=== PATIENT | male | born 1935 | race Caucasian/White ===

== ENCOUNTER → 2017-09-24 | Outpatient (CLI) | payer MEDICARE ==
--- NOTE | 2017-09-24 14:16 | US ---
EXAMINATION TYPE: US kidneys/renal and bladder DATE OF EXAM: 09/24/2017 COMPARISON: NONE CLINICAL HISTORY: R31.0 Gross Hematuria. Pt states on-off gross hematuria EXAM MEASUREMENTS: Right Kidney: 10.3 x 6.3 x 6.6 cm Left Kidney: 11.8 x 5.6 x 5.9 cm Right Kidney: Appeared wnl Left Kidney: Cortical thinning Bladder: Solid lesion within bladder ml/rt wall with vascularity= 4.0 x 4.1 x 4.2 cm Bilateral Jets seen: Yes There is no evidence for hydronephrosis at this point in time. No nephrolithiasis is seen. No bhargav s are identified. Within bladder there is suspicious 4.2 cm exophytic slightly lobulated vascular hadley id mass right aspect. Bilateral ureteral jets are seen. IMPRESSION: There is 4.2 cm right lateral wall vascular solid mass strongly suspicious for neoplasm, urology refe rral for cystoscopy evaluation is advised.
== END | disposition home or self-care (01) ==
LOC: RADUSWWP 12:53
PROVIDERS: ATTEND Internal Medicine
DX: I99.8 Other disorder of circulatory system (principal); R31.0 Gross hematuria
CPT/HCPCS: 76770

== ENCOUNTER 2017-11-01 10:46 | Emergency (ER) | payer MEDICARE ==
[2017-11-01 11:23] VITALS: RESP 16
--- NOTE | 2017-11-01 12:29 | ED ---
General Adult HPI - General Chief complaint: Extremity Problem,Nontraumatic Stated complaint: POSS BLOODCLOT, POST OP Time Seen by Provider: 11/01/17 11:56 Source: patient, RN notes reviewed, old records reviewed Mode of arrival: wheelchair Limitations: no limitations - History of Present Illness Initial comments: This is an 82-year-old male the ER for evaluation of right lower extremity edema and pain. Patient is a positive recent surgery surgery history. Patient states pain started last night into today. Patient was sent in for evaluation of possible blood clot in right leg, patient denies chest pain or shortness of breath - Related Data Home Medications Medication Instructions Recorded Confirmed Artificial Tears-Hypromellose 1 drops BOTH EYES TID PRN 11/01/17 11/01/17 [Artificial Tear Drops] Budesonide/Formoterol Fumarate 2 puff INHALATION RT-HS 11/01/17 11/01/17 [Symbicort 160-4.5 Mcg Inhaler] Ciprofloxacin HCl [Cipro] 500 mg PO Q12HR 11/01/17 11/01/17 HYDROcodone/APAP 5-325MG [[place] 1 tab PO TID PRN 11/01/17 11/01/17 5-325] Oxybutynin Xl [Ditropan Xl] 5 mg PO DAILY 11/01/17 11/01/17 Previous Rx's Medication Instructions Recorded Apixaban [Eliquis] 5 mg PO BID #60 tab 11/01/17 Apixaban [Eliquis] 10 mg PO BID #28 tablet 11/01/17 Allergies Allergy/AdvReac Type Severity Reaction Status Date / Time No Known Allergies Allergy Verified 11/01/17 12:53 Review of Systems ROS Statement: Those systems with pertinent positive or pertinent negative responses have been documented in the HPI. ROS Other: All systems not noted in ROS Statement are negative. Past Medical History Past Medical History: Cancer, COPD, Hyperlipidemia Additional Past Medical History / Comment(s): bladder History of Any Multi-Drug Resistant Organisms: None Reported Past Surgical History: Bladder Surgery, Tonsillectomy Additional Past Surgical History / Comment(s): bladder tumor resection Past Psychological History: No Psychological Hx Reported Smoking Status: Never smoker Past Alcohol Use History: None Reported Past Drug Use History: None Reported General Exam - General Exam Comments Initial Comments: Right lower extremity edema and tenderness Limitations: no limitations General appearance: alert, in no apparent distress Head exam: Present: atraumatic, normocephalic, normal inspection Eye exam: Present: normal appearance, PERRL, EOMI. Absent: scleral icterus, conjunctival injection, periorbital swelling ENT exam: Present: normal exam, mucous membranes moist Neck exam: Present: normal inspection. Absent: tenderness, meningismus, lymphadenopathy Respiratory exam: Present: normal lung sounds bilaterally. Absent: respiratory distress, wheezes, rales, rhonchi, stridor Cardiovascular Exam: Present: regular rate, normal rhythm, normal heart sounds. Absent: systolic murmur, diastolic murmur, rubs, gallop, clicks GI/Abdominal exam: Present: soft, normal bowel sounds. Absent: distended, tenderness, guarding, rebound, rigid Extremities exam: Present: normal inspection, full ROM, normal capillary refill. Absent: tenderness, pedal edema, joint swelling, calf tenderness Back exam: Present: normal inspection Neurological exam: Present: alert, oriented X3, CN II-XII intact Psychiatric exam: Present: normal affect, normal mood Skin exam: Present: warm, dry, intact, normal color. Absent: rash Course Vital Signs 11/01/17 11/01/17 11/01/17 11:19 14:30 14:34 Temperature 97.2 F L 98 F 98 F Pulse Rate 81 84 Respiratory 16 16 Rate Blood Pressure 126/74 138/66 O2 Sat by Pulse 98 98 Oximetry Medical Decision Making - Medical Decision Making 82 male the ER for evaluation of possible blood. Patient is recently positive surgery. Patient does have blood clot and lower extremity, patient will be placed on anticoagulation discharged home - Radiology Data Radiology results: report reviewed (Ultrasound lower extremity Positive for DVT) , image reviewed Disposition Clinical Impression: Deep vein thrombosis of lower extremity, Right leg DVT Disposition: HOME SELF-CARE Condition: Good Instructions: Deep Venous Thrombosis (ED) Prescriptions: Apixaban [Eliquis] 5 mg PO BID #60 tab Apixaban [Eliquis] 10 mg PO BID #28 tablet Referrals: Emily Dueñas MD [Primary Care Provider] - 1-2 days
--- NOTE | 2017-11-01 13:20 | US ---
EXAMINATION TYPE: US venous doppler duplex LE RT DATE OF EXAM: 11/01/2017 12:50 PM COMPARISON: NONE CLINICAL HISTORY: Pain. Right calf swelling today; is post bladder CA resection 10-24-17. SIDE PERFORMED: Right TECHNIQUE: The lower extremity deep venous system is examined utilizing real time linear array sonog jose f with graded compression, doppler sonography and color-flow sonography. VESSELS IMAGED: Common Femoral Vein Deep Femoral Vein Greater Saphenous Vein * Femoral Vein Popliteal Vein Small Saphenous Vein * Proximal Calf Veins (* superficial vessels) Right Leg: Positive for DVT at right Popliteal Vein, one of two Calf Veins and one of two Gastrocnem ius Veins. Thickened valve cabezas are noted at upper Femoral Vein. Superficial Vein Thrombosis is also noted in Right upper Small Saphenous Vein. IMPRESSION: Deep venous thrombosis is identified in the popliteal vein. Thrombus is also identified i n one of 2 calf veins and one of 2 gastrocnemius veins. Thickened bowel cabezas are noted in the upper femoral vein. There is also thrombus identified in the small saphenous vein.
[2017-11-01] MEDS ORDERED: APIXABAN 5 MG TAB PO STA ×2 (13:50→13:53)
[2017-11-01 14:35] VITALS: TEMP 98
[2017-11-01 14:38] VITALS: BP 138/66; PULSE 84
== END 2017-11-01 14:34 | disposition home or self-care (01) ==
LOC: EC 10:46
DX: I82.401 Acute embolism and thrombosis of unspecified deep veins of right lower extremity (principal); J44.9 Chronic obstructive pulmonary disease, unspecified; Z85.51 Personal history of malignant neoplasm of bladder; Z79.51 Long term (current) use of inhaled steroids; Z79.899 Other long term (current) drug therapy
CPT/HCPCS: 99284

== ENCOUNTER 2017-12-06 09:04 | Emergency (ER) | payer MEDICARE ==
--- NOTE | 2017-12-06 09:49 | ED ---
General Adult HPI - General Chief complaint: Urogenital Stated complaint: Urinary cancer Time Seen by Provider: 12/06/17 09:39 Source: patient, RN notes reviewed Mode of arrival: ambulatory Limitations: no limitations - History of Present Illness Initial comments: Patient's an 82-year-old male with significant past medical history for bladder cancer, status post recent procedure on the bladder on 11/20/2017, presenting today with difficulty urinating. He does admit that since the procedure he had on the he had a catheter placed for 4 days was taken out was doing well. States that over the last few days she's been having steadily decreased stream and total time urinating. He states last time was able to go with last diaper was just a "dribble". Patient states he does feel the need an urge to urinate but is having a very difficult time going. Patient does admit to pressure over the bladder. He denies any other complaints or symptoms. Patient denies any recent fever, chills, shortness of breath, chest pain, back pain, nausea or vomiting, numbness or tingling, constipation or diarrhea, headaches or visual changes, or any other complaints. - Related Data Home Medications Medication Instructions Recorded Confirmed Artificial Tears-Hypromellose 1 drops BOTH EYES TID PRN 11/01/17 11/01/17 [Artificial Tear Drops] Budesonide/Formoterol Fumarate 2 puff INHALATION RT-HS 11/01/17 11/01/17 [Symbicort 160-4.5 Mcg Inhaler] Ciprofloxacin HCl [Cipro] 500 mg PO Q12HR 11/01/17 11/01/17 HYDROcodone/APAP 5-325MG [[place] 1 tab PO TID PRN 11/01/17 11/01/17 5-325] Oxybutynin Xl [Ditropan Xl] 5 mg PO DAILY 11/01/17 11/01/17 Previous Rx's Medication Instructions Recorded Apixaban [Eliquis] 5 mg PO BID #60 tab 11/01/17 Apixaban [Eliquis] 10 mg PO BID #28 tablet 11/01/17 Sulfamethox-Tmp 800-160Mg [Bactrim 1 tab PO Q12HR #14 tab 12/06/17 DS 800-160 mg] Allergies Allergy/AdvReac Type Severity Reaction Status Date / Time No Known Allergies Allergy Verified 12/06/17 09:17 Review of Systems ROS Statement: Those systems with pertinent positive or pertinent negative responses have been documented in the HPI. ROS Other: All systems not noted in ROS Statement are negative. Past Medical History Past Medical History: Cancer, COPD, Hyperlipidemia Additional Past Medical History / Comment(s): bladder History of Any Multi-Drug Resistant Organisms: None Reported Past Surgical History: Bladder Surgery, Tonsillectomy Additional Past Surgical History / Comment(s): bladder tumor resection x2. Past Psychological History: No Psychological Hx Reported Smoking Status: Never smoker Past Alcohol Use History: None Reported Past Drug Use History: None Reported General Exam - General Exam Comments Initial Comments: General: The patient is awake and alert, in no distress, and does not appear acutely ill. Eye: Pupils are equal, round and reactive to light, extra-ocular movements are intact. No nystagmus. There is normal conjunctiva bilaterally. No signs of icterus. Ears, nose, mouth and throat: There are moist mucous membranes and no oral lesions. Neck: The neck is supple, there is no tenderness or JVD. Cardiovascular: There is a regular rate and rhythm. No murmur, rub or gallop is appreciated. Respiratory: Lungs are clear to auscultation, respirations are non-labored, breath sounds are equal. No wheezes, stridor, rales, or rhonchi. Gastrointestinal: Normal appearance. Normal bowel sounds. Soft on palpation. Patient does have mild tenderness suprapubic over the bladder. No rebound, guarding, or CVA tenderness. Musculoskeletal: Normal ROM, no tenderness. Strength 5/5. Sensation intact. Pulses equal bilaterally 2+. Neurological: A&O x 3. CN II-XII intact, There are no obvious motor or sensory deficits. Coordination appears grossly intact. Speech is normal. Skin: Skin is warm and dry and no rashes or lesions are noted. Psychiatric: Cooperative, appropriate mood & affect, normal judgment. Limitations: no limitations Course Vital Signs 12/06/17 09:15 Temperature 97.7 F Pulse Rate 95 Respiratory 16 Rate Blood Pressure 142/75 O2 Sat by Pulse 96 Oximetry Medical Decision Making - Medical Decision Making Patient's bladder scan showed greater than thousand cc. Full catheter was placed by nursing staff. Patient has had relief. No pain at this time. Abdomen soft on palpation. Patient's urinalysis reviewed shows infection. Will be started on antibiotic. Patient's vital stable. No fever. Advised follow-up with his urologist in 2 days. Carter catheter will be left in place until follow-up appointment. Advised return for any fever or increase or worsening symptoms. - Lab Data Lab Results 12/06/17 Range/Units 09:56 Urine Color Yellow Urine Appearance Clear (Clear) Urine pH 6.0 (5.0-8.0) Ur Specific [place] 1.011 (1.001-1.035) Urine Protein Trace H (Negative) Urine Glucose (UA) Negative (Negative) Urine Ketones Negative (Negative) Urine Blood Small H (Negative) Urine Nitrite Negative (Negative) Urine Bilirubin Negative (Negative) Urine Urobilinogen <2.0 (<2.0) mg/dL Ur Leukocyte Esterase Moderate H (Negative) Urine RBC 19 H (0-5) /hpf Urine WBC 51 H (0-5) /hpf Urine Bacteria Rare H (None) /hpf Urine Mucus Occasional H (None) /hpf Disposition Clinical Impression: Urinary retention, UTI (urinary tract infection) Disposition: HOME SELF-CARE Condition: Good Instructions: Urinary Tract Infection in Men (ED) Additional Instructions: Please use medication as prescribed. Please follow-up with urologist Friday as discussed. Please return to emergency room if the symptoms increase or worsen or for any other concerns. Prescriptions: Sulfamethox-Tmp 800-160Mg [Bactrim DS 800-160 mg] 1 tab PO Q12HR #14 tab Referrals: Emily Dueñas MD [Primary Care Provider] - 1-2 days Time of Disposition: 10:32
[2017-12-06 10:15] LABS: Appearance,Urine Clear (Clear); Bacteria,Urine Rare /hpf; Bilirubin,Urine Negative (Negative); Blood,Urine Small (Negative); Color,Urine Yellow; Glucose,Urine (UA) Negative (Negative); Ketones,Urine Negative (Negative); Leukocyte Esterase,Urine Moderate (Negative); Mucus,Urine Occasional /hpf; Nitrite,Urine Negative (Negative); Protein,Urine Trace (Negative); RBC,Urine 19 /hpf (0-5); Specific Gravity,Urine 1.011 (1.001-1.035); Urobilinogen,Urine <2.0 mg/dL (<2.0); WBC,Urine 51 /hpf (0-5)
[2017-12-06 10:56] VITALS: BP 118/62; PULSE 75; RESP 18; TEMP 97.1
== END 2017-12-06 10:54 | disposition home or self-care (01) ==
LOC: EC 09:04
DX: N39.0 Urinary tract infection, site not specified (principal); R33.9 Retention of urine, unspecified; J44.9 Chronic obstructive pulmonary disease, unspecified; Z85.51 Personal history of malignant neoplasm of bladder; Z98.890 Other specified postprocedural states; Z79.51 Long term (current) use of inhaled steroids; Z79.899 Other long term (current) drug therapy
CPT/HCPCS: 51702; 51798; 81001; 87086; 99283

== ENCOUNTER 2018-02-24 06:01 | Emergency (ER) | payer MEDICARE ==
--- NOTE | 2018-02-24 06:16 | ED ---
General Adult HPI - General Chief complaint: Urogenital Stated complaint: trouble urinating Time Seen by Provider: 02/24/18 06:05 Source: patient, family, RN notes reviewed Mode of arrival: ambulatory Limitations: no limitations - History of Present Illness Initial comments: This is an 83-year-old male who has a history of prostate cancer. Patient comes in today because over the last few weeks he is having increased urinary frequency. Patient states tonight he can't even lay down for a couple minutes before he has to get back up and go again. Patient states he goes very little and now is getting some suprapubic fullness. Patient denies any nausea vomiting diarrhea. Patient denies any blood in the urine. Patient denies any dysuria. His any back pain. - Related Data Home Medications Medication Instructions Recorded Confirmed Artificial Tears-Hypromellose 1 drops BOTH EYES TID PRN 11/01/17 02/24/18 [Artificial Tear Drops] Budesonide/Formoterol Fumarate 2 puff INHALATION RT-HS 11/01/17 02/24/18 [Symbicort 160-4.5 Mcg Inhaler] Ciprofloxacin HCl [Cipro] 500 mg PO Q12HR 11/01/17 02/24/18 HYDROcodone/APAP 5-325MG [[place] 1 tab PO TID PRN 11/01/17 02/24/18 5-325] Oxybutynin Xl [Ditropan Xl] 5 mg PO DAILY 11/01/17 02/24/18 Tamsulosin [Flomax] 0.4 mg PO DAILY 02/24/18 02/24/18 Previous Rx's Medication Instructions Recorded Apixaban [Eliquis] 5 mg PO BID #60 tab 11/01/17 Sulfamethox-Tmp 800-160Mg [Bactrim 1 each PO Q12HR #20 tab 02/24/18 DS 800-160 mg] Allergies Allergy/AdvReac Type Severity Reaction Status Date / Time No Known Allergies Allergy Verified 02/24/18 06:08 Review of Systems ROS Statement: Those systems with pertinent positive or pertinent negative responses have been documented in the HPI. ROS Other: All systems not noted in ROS Statement are negative. Past Medical History Past Medical History: Cancer, COPD, Hyperlipidemia Additional Past Medical History / Comment(s): bladder History of Any Multi-Drug Resistant Organisms: None Reported Past Surgical History: Bladder Surgery, Tonsillectomy Additional Past Surgical History / Comment(s): bladder tumor resection x2. Past Psychological History: No Psychological Hx Reported Smoking Status: Never smoker Past Alcohol Use History: None Reported Past Drug Use History: None Reported General Exam - General Exam Comments Initial Comments: GENERAL Patient is well-developed and well-nourished. Patient is in mild distress. EYES Patient's pupils are equal and round. Extraocular motion is intact SKIN Unremarkable ABDOMINAL pain Patient's abdomen has some distention and mild tenderness in the suprapubic region NEURO The patient is alert and oriented 3 PYSCH Patient has normal interpersonal interactions. MUSCULOSKELETAL All 4 times and full range of motion Limitations: no limitations Course Vital Signs 02/24/18 06:02 Temperature 98.7 F Pulse Rate 105 H Respiratory 20 Rate Blood Pressure 136/76 O2 Sat by Pulse 95 Oximetry Medical Decision Making - Lab Data Lab Results 02/24/18 Range/Units 06:25 Urine Color Yellow Urine Appearance Turbid (Clear) Urine pH 6.5 (5.0-8.0) Ur Specific [place] 1.014 (1.001-1.035) Urine Protein 2+ H (Negative) Urine Glucose (UA) Negative (Negative) Urine Ketones Negative (Negative) Urine Blood Moderate H (Negative) Urine Nitrite Negative (Negative) Urine Bilirubin Negative (Negative) Urine Urobilinogen <2.0 (<2.0) mg/dL Ur Leukocyte Esterase Large H (Negative) Urine RBC 21 H (0-5) /hpf Urine WBC >182 H (0-5) /hpf Urine WBC Clumps Many H (None) /hpf Disposition Clinical Impression: Urinary tract infection Disposition: HOME SELF-CARE Condition: Good Instructions: Urinary Tract Infection in Men (ED) Prescriptions: Sulfamethox-Tmp 800-160Mg [Bactrim DS 800-160 mg] 1 each PO Q12HR #20 tab Is patient prescribed a controlled substance at discharge?: No Referrals: Emily Dueñas MD [Primary Care Provider] - 1-2 days Time of Disposition: 06:46
[2018-02-24 06:42] LABS: Appearance,Urine Turbid (Clear); Bilirubin,Urine Negative (Negative); Blood,Urine Moderate (Negative); Color,Urine Yellow; Glucose,Urine (UA) Negative (Negative); Ketones,Urine Negative (Negative); Leukocyte Esterase,Urine Large (Negative); Nitrite,Urine Negative (Negative); PH, Urine 6.5 (5.0-8.0); Protein,Urine 2+ (Negative); RBC,Urine 21 /hpf (0-5); Specific Gravity,Urine 1.014 (1.001-1.035); Urobilinogen,Urine <2.0 mg/dL (<2.0); WBC,Urine >182 /hpf (0-5)
[2018-02-24] MEDS ORDERED: cefTRIAXone 250 MG VIAL IM STA (06:44)
[2018-02-24 07:07] VITALS: BP 133/64; PULSE 85; RESP 19; TEMP 97.3
[2018-02-24] MEDS ORDERED: cefTRIAXone 1,000 MG VIAL (IM USE) IM STA (07:15)
== END 2018-02-24 07:37 | disposition home or self-care (01) ==
LOC: EC 06:01
DX: N39.0 Urinary tract infection, site not specified (principal); J44.9 Chronic obstructive pulmonary disease, unspecified; Z85.46 Personal history of malignant neoplasm of prostate; Z79.51 Long term (current) use of inhaled steroids; Z79.899 Other long term (current) drug therapy
CPT/HCPCS: 81001; 99283; 96372; J0696

== ENCOUNTER → 2018-06-02 | Outpatient (CLI) | payer MEDICARE ==
--- NOTE | 2018-06-02 14:42 | US ---
EXAMINATION TYPE: US venous doppler duplex LE DATE OF EXAM: 06/02/2018 1:46 PM COMPARISON: 11/01/2017 CLINICAL HISTORY: I82.411 Acute deep vein thrrombosis femoral vein. Follow up to previous. SIDE PERFORMED: Bilateral TECHNIQUE: The lower extremity deep venous system is examined utilizing real time linear array sonog jose f with graded compression, doppler sonography and color-flow sonography. VESSELS IMAGED: External Iliac Vein (EIV) Common Femoral Vein Deep Femoral Vein Greater Saphenous Vein * Femoral Vein Popliteal Vein Small Saphenous Vein * Proximal Calf Veins (* superficial vessels) Grayscale, color doppler, spectral doppler imaging performed of the deep veins of the lower extremiti es. There is normal flow, compressibility, vascular waveforms. Right Leg: Negative for DVT Left Leg: Negative for DVT Clot and thickened valves not seen this time. IMPRESSION: Residual thrombus is not identified within the right popliteal vein. No sonographic evid ence of deep venous thrombosis within either lower extremity.
== END | disposition home or self-care (01) ==
LOC: RADUSWWP 12:02
PROVIDERS: ATTEND Internal Medicine
DX: I82.411 Acute embolism and thrombosis of right femoral vein (principal)
CPT/HCPCS: 93970

== ENCOUNTER 2019-01-11 19:16 | Inpatient (IN) | payer MEDICARE ==
[2019-01-11] MEDS ORDERED: IPRATROPIUM-ALBUTEROL 3 ML NEB INHALATION STA (20:00)
--- NOTE | 2019-01-11 20:01 | ED ---
SOB HPI - General Chief Complaint: Shortness of Breath Stated Complaint: SOB, Weakness, has a heart cath 02/08 Time Seen by Provider: 01/11/19 19:45 Source: patient, family, RN notes reviewed Mode of arrival: ambulatory Limitations: no limitations - History of Present Illness Initial Comments: This 83-year-old male who presents with complaints of exertional dyspnea whenever about 1-2 weeks he progressively worse he was doing stairs today and was very exhausted. He also has some chest tightness without he denies any fevers chills nausea vomiting or sweats however. He does have a history of asthma. Currently at rest he feels within normal limits but with a type of exertion he has shortness of breath. Per the patient family patient reportedly had an OH about 8 weeks ago and is had a cardiac cath scheduled for February [address] Griffin. Complaint: shortness of breath - Related Data Home Medications Medication Instructions Recorded Confirmed Artificial Tears-Hypromellose 1 drops BOTH EYES TID PRN 11/01/17 01/11/19 [Artificial Tear Drops] Budesonide/Formoterol Fumarate 2 puff INHALATION RT-HS 11/01/17 01/11/19 [Symbicort 160-4.5 Mcg Inhaler] Tamsulosin [Flomax] 0.4 mg PO DAILY 02/24/18 01/11/19 Anti-Oxidant 1 tab PO DAILY 01/11/19 01/11/19 Aspirin [[place] Aspirin EC] 81 mg PO DAILY 01/11/19 01/11/19 Melatonin 5 mg PO HS 01/11/19 01/11/19 Metoprolol Tartrate 12.5 mg PO BID 01/11/19 01/11/19 Allergies Allergy/AdvReac Type Severity Reaction Status Date / Time No Known Allergies Allergy Verified 01/11/19 20:47 Review of Systems ROS Statement: Those systems with pertinent positive or pertinent negative responses have been documented in the HPI. ROS Other: All systems not noted in ROS Statement are negative. Past Medical History Past Medical History: Cancer, COPD, Hyperlipidemia, Myocardial Infarction ([place]) Additional Past Medical History / Comment(s): bladder History of Any Multi-Drug Resistant Organisms: None Reported Past Surgical History: Bladder Surgery, Tonsillectomy Additional Past Surgical History / Comment(s): bladder tumor resection x2. Past Psychological History: No Psychological Hx Reported Smoking Status: Never smoker Past Alcohol Use History: None Reported Past Drug Use History: None Reported General Exam - General Exam Comments Initial Comments: Is a well-developed well-nourished awake alert oriented 3 male Limitations: no limitations General appearance: alert, anxious Head exam: Present: atraumatic, normocephalic, normal inspection Eye exam: Present: normal appearance, PERRL, EOMI. Absent: scleral icterus, conjunctival injection, periorbital swelling ENT exam: Present: normal exam, mucous membranes moist Neck exam: Present: normal inspection, full ROM, other (No stridor JVD or bruits ). Absent: tenderness, meningismus, lymphadenopathy Respiratory exam: Present: decreased breath sounds. Absent: respiratory distress, wheezes, rales, rhonchi, stridor Cardiovascular Exam: Present: normal rhythm, tachycardia, normal heart sounds. Absent: systolic murmur, diastolic murmur, rubs, gallop, clicks GI/Abdominal exam: Present: soft, normal bowel sounds. Absent: distended, tenderness, guarding, rebound, rigid Extremities exam: Present: normal inspection, full ROM, normal capillary refill. Absent: tenderness, pedal edema, joint swelling, calf tenderness Back exam: Present: normal inspection Neurological exam: Present: alert, oriented X3, CN II-XII intact Psychiatric exam: Present: normal affect, normal mood Skin exam: Present: warm, dry, intact, normal color. Absent: rash Course Vital Signs 01/11/19 01/11/19 01/11/19 19:24 20:00 20:07 Temperature 97.7 F Pulse Rate 103 H 100 100 Respiratory 24 Rate Blood Pressure 113/70 130/86 O2 Sat by Pulse 96 97 Oximetry 01/11/19 01/11/19 01/11/19 20:14 21:00 22:00 Temperature Pulse Rate 99 96 105 H Respiratory Rate Blood Pressure 111/89 127/95 O2 Sat by Pulse 96 97 Oximetry - Reevaluation(s) Reevaluation #1: 01/11/19 22:28 Patient did have some improvement with breathing labs did show evidence of CHF with elevated troponin. Reevaluation #2: 01/11/19 22:29 groundwater monitoring technician: This was indicated for rule out dysrhythmias the patient was complaining of shortness of breath and exertional dyspnea. Patient did have a heart rate of approximately 105 with no evidence of acute ST-T wave changes on my exam. Medical Decision Making - Medical Decision Making I did reevaluate patient several occasions did discuss findings the patient family members were present. Patient does present with him complaints of dyspnea which is consistent with congestive heart failure. The patient does have elevated troponin also. He had chest tightness but no overt pain he states he is currently asymptomatic free with respect to breathing at rest and no chest discomfort. I did discuss the case with Dr. Lopez's service patient will be admitted - Lab Data Result diagrams: 01/11/19 19:45 01/11/19 19:45 Lab Results 01/11/19 01/11/19 01/11/19 Range/Units 19:45 19:45 19:45 WBC 6.6 (3.8-10.6) k/uL RBC 4.58 (4.30-5.90) m/uL Hgb 12.6 L (13.0-17.5) gm/dL Hct 40.8 (39.0-53.0) % MCV 89.0 (80.0-100.0) fL MCH 27.5 (25.0-35.0) pg MCHC 30.9 L (31.0-37.0) g/dL RDW 15.2 (11.5-15.5) % Plt Count 228 (150-450) k/uL Neutrophils % 81 % Lymphocytes % 13 % Monocytes % 4 % Eosinophils % 1 % Basophils % 0 % Neutrophils # 5.3 (1.3-7.7) k/uL Lymphocytes # 0.9 L (1.0-4.8) k/uL Monocytes # 0.3 (0-1.0) k/uL Eosinophils # 0.1 (0-0.7) k/uL Basophils # 0.0 (0-0.2) k/uL Hypochromasia Slight PT (9.0-12.0) sec INR (<1.2) APTT (22.0-30.0) sec Sodium 140 (137-145) mmol/L Potassium 4.4 (3.5-5.1) mmol/L Chloride 107 (98-107) mmol/L Carbon Dioxide 22 (22-30) mmol/L Anion Gap 11 mmol/L BUN 19 (9-20) mg/dL Creatinine 1.21 (0.66-1.25) mg/dL Est GFR (CKD-EPI)AfAm 64 (>60 ml/min/1.73 sqM) Est GFR (CKD-EPI)NonAf 56 (>60 ml/min/1.73 sqM) Glucose 182 H (74-99) mg/dL Calcium 8.9 (8.4-10.2) mg/dL Magnesium 2.2 (1.6-2.3) mg/dL Total Bilirubin 0.5 (0.2-1.3) mg/dL AST 47 (17-59) U/L ALT 80 H (21-72) U/L Alkaline Phosphatase 58 (38-126) U/L Troponin I (0.000-0.034) ng/mL NT-Pro-B Natriuret Pep 97314 pg/mL Total Protein 6.3 (6.3-8.2) g/dL Albumin 3.9 (3.5-5.0) g/dL 01/11/19 01/11/19 Range/Units 19:45 19:45 WBC (3.8-10.6) k/uL RBC (4.30-5.90) m/uL Hgb (13.0-17.5) gm/dL Hct (39.0-53.0) % MCV (80.0-100.0) fL MCH (25.0-35.0) pg MCHC (31.0-37.0) g/dL RDW (11.5-15.5) % Plt Count (150-450) k/uL Neutrophils % % Lymphocytes % % Monocytes % % Eosinophils % % Basophils % % Neutrophils # (1.3-7.7) k/uL Lymphocytes # (1.0-4.8) k/uL Monocytes # (0-1.0) k/uL Eosinophils # (0-0.7) k/uL Basophils # (0-0.2) k/uL Hypochromasia PT 10.4 (9.0-12.0) sec INR 1.0 (<1.2) APTT 21.2 L (22.0-30.0) sec Sodium (137-145) mmol/L Potassium (3.5-5.1) mmol/L Chloride (98-107) mmol/L Carbon Dioxide (22-30) mmol/L Anion Gap mmol/L BUN (9-20) mg/dL Creatinine (0.66-1.25) mg/dL Est GFR (CKD-EPI)AfAm (>60 ml/min/1.73 sqM) Est GFR (CKD-EPI)NonAf (>60 ml/min/1.73 sqM) Glucose (74-99) mg/dL Calcium (8.4-10.2) mg/dL Magnesium (1.6-2.3) mg/dL Total Bilirubin (0.2-1.3) mg/dL AST (17-59) U/L ALT (21-72) U/L Alkaline Phosphatase (38-126) U/L Troponin I 0.047 H* (0.000-0.034) ng/mL NT-Pro-B Natriuret Pep pg/mL Total Protein (6.3-8.2) g/dL Albumin (3.5-5.0) g/dL - EKG Data -: EKG Interpreted by Me EKG shows normal: sinus rhythm (Sinus rhythm with marked sinus arrhythmia the rate was 99. We'll 180 QRS duration 94 QT/QTC 366/469 evidence of old inferior changes nonspecific anterior configuration PVC noted) - Radiology Data Radiology results: report reviewed (I did review the imaging and report evidence of increased pulmonary vascular congestion consistent with congestive heart failure.), image reviewed Critical Care Time Critical Care Time: Yes Critical Care Time: 37 minutes of critical care time which includes initial presentation with history physical labs x-rays several reevaluation patient responsive therapy review of imaging. Patient did receive IV for some minor as well as nitro paste. He did receive a DuoNeb treatment. Disposition Clinical Impression: Congestive heart failure, Acute exacerbation of chronic obstructive airways disease, Adult respiratory distress syndrome, Elevated troponin Disposition: ADMITTED IP TO THIS HOSP Condition: Serious Referrals: Emily Dueñas MD [Primary Care Provider] - 1-2 days
[2019-01-11 20:21] LABS: Basophils % (A) 0 %; Eosinophils # (A) 0.1 k/uL (0-0.7); Eosinophils % (A) 1 %; HCT 40.8 % (39.0-53.0); HGB 12.6 gm/dL (13.0-17.5); Hypochromasia Slight; Lymphocytes # (A) 0.9 k/uL (1.0-4.8); Lymphocytes % (A) 13 %; MCH 27.5 pg (25.0-35.0); MCHC 30.9 g/dL (31.0-37.0); Mean Platelet Volume 7.1; Monocytes # (A) 0.3 k/uL (0-1.0); Monocytes % (A) 4 %; Neutrophils # (A) 5.3 k/uL (1.3-7.7); Neutrophils % (A) 81 %; Platelet Count 228 k/uL (150-450); RBC 4.58 m/uL (4.30-5.90); RDW 15.2 % (11.5-15.5); WBC 6.6 k/uL (3.8-10.6)
[2019-01-11 20:26] LABS: Albumin 3.9 g/dL (3.5-5.0); Calcium 8.9 mg/dL (8.4-10.2); Magnesium 2.2 mg/dL (1.6-2.3); Potassium 4.4 mmol/L (3.5-5.1); Total Bilirubin 0.5 mg/dL (0.2-1.3); Total Protein 6.3 g/dL (6.3-8.2)
[2019-01-11 20:41] LABS: Prothrombin Time 10.4 sec (9.0-12.0)
[2019-01-11 20:50] LABS: Partial Thromboplastin Time 21.2 sec (22.0-30.0)
--- NOTE | 2019-01-11 20:57 | XR ---
EXAMINATION TYPE: XR chest 2V DATE OF EXAM: 01/11/2019 COMPARISON: NONE HISTORY: Weakness and shortness of breath. TECHNIQUE: Frontal and lateral views of the chest are obtained. FINDINGS: The cardiac silhouette size is enlarged. There is suspected mild central vascular congesti on. There are bibasilar opacities consistent with small bilateral pleural effusions and associated bi basilar atelectasis and/or infiltrate. Upper lungs are clear without pneumothorax. Underlying scolios is is present. IMPRESSION: Findings consistent with CHF exacerbation as there is cardiomegaly with central vascular congestion and small bilateral pleural effusions identified.
[2019-01-11] MEDS ORDERED: FUROSEMIDE 10 MG/ML 4 ML VIAL IV STA (22:27)
[2019-01-11] MEDS ORDERED: NITROGLYCERIN OINT 1 INCH/GM PACKET TOPICAL STA (22:28)
[2019-01-11] MEDS ORDERED: HEPARIN SODIUM,PORCINE 5,000 UNIT/ML 1 ML VIAL IV ONE (22:31)
[2019-01-11] MEDS ORDERED: ARTIFICIAL TEARS-HYPROMELLOSE DROPS 15 ML BTL BOTH EYES PRN (22:32)
[2019-01-11] MEDS: FUROSEMIDE 10 MG/ML 4 ML VIAL IV SCH (23:02)
[2019-01-11] MEDS: HEPARIN SOD,PORK IN 0.45% NACL 25,000 UNIT in 0.45% NACL 1 250ML.BAG IV SCH (23:15)
[2019-01-12] MEDS: MELATONIN 5 MG TABLET PO SCH ×2 (00:05→21:04)
[2019-01-12] MEDS: SYMBICORT 160-4.5 MCG INHALER INHALATION SCH ×2 (00:42→21:03)
[2019-01-12 06:04] LABS: Basophils % (A) 0 %; Eosinophils # (A) 0.2 k/uL (0-0.7); Eosinophils % (A) 2 %; HCT 39.8 % (39.0-53.0); HGB 12.5 gm/dL (13.0-17.5); Hypochromasia Slight; Lymphocytes # (A) 1.8 k/uL (1.0-4.8); Lymphocytes % (A) 21 %; MCH 27.9 pg (25.0-35.0); MCHC 31.4 g/dL (31.0-37.0); MCV 88.8 fL (80.0-100.0); Mean Platelet Volume 6.7; Monocytes # (A) 0.5 k/uL (0-1.0); Monocytes % (A) 6 %; Neutrophils % (A) 69 %; Platelet Count 225 k/uL (150-450); RBC 4.48 m/uL (4.30-5.90); RDW 15.3 % (11.5-15.5); WBC 8.7 k/uL (3.8-10.6)
[2019-01-12 06:19] LABS: Potassium 4.6 mmol/L (3.5-5.1)
[2019-01-12] MEDS: HEPARIN SODIUM,PORCINE 5,000 UNIT/ML 1 ML VIAL IV PRN ×2 (06:37→14:37)
[2019-01-12] MEDS: METOPROLOL TARTRATE 25 MG TAB PO SCH ×2 (08:06→21:04)
[2019-01-12] MEDS: TAMSULOSIN 0.4 MG CAP.ER.24H PO SCH (08:06)
[2019-01-12] MEDS: NITROGLYCERIN OINT 1 INCH/GM PACKET TOPICAL SCH ×4 (08:06→21:05)
[2019-01-12] MEDS: FUROSEMIDE 10 MG/ML 4 ML VIAL IV SCH ×2 (08:07→21:22)
[2019-01-12 11:16] VITALS: BMI 30.6
--- NOTE | 2019-01-12 11:55 | P.CRDCN ---
History of Present Illness Consult date: 01/12/19 Requesting physician: Barbra Lopez Consult reason: congestive heart failure Chief complaint: Exertional shortness of breath History of present illness: This is a pleasant 83-year-old gentleman who has a known history of hyperlipidemia, history of bladder cancer, asthma, prior DVT, approximately 8 weeks ago, the patient was out shopping somewhat, he states that he became extremely tired, was short of breath and diaphoretic, went into the house and had a brief syncopal episode. He did not seek medical attention at that time, but since that time the patient has been experiencing exertional shortness of breath and is noticed some peripheral edema. 6 weeks ago the patient went to [facility] [place] who referred him to cardiology, the patient was seen by Dr. Marie, underwent a stress test which revealed a large inferior scar, he had an echo performed at that visit which also showed a normal ejection fraction with moderate mitral regurgitation. Dr. Marie did have a discussion with the patient and the family regarding proceeding with medical therapy or performing a cardiac cath. The patient opted medical therapy. This past Friday he was again seen in the office, continues to have significant exertional shortness of breath, and for this reason had opted to proceed with cardiac catheterization. Cardiac catheterization was scheduled for February 08. He presents to the hospital on this admission with symptoms again of moderate to severe exertional shortness of breath. According to the patient he was walking up the stairs with the laundry and felt that so he could hardly make it because he became extremely tired and weak and was short of breath. He ultimately came to the emergency room on this occasion for further evaluation and treatment. His chest x-ray on admission here showed just of heart failure exacerbation. Small bilateral pleural effusions. EKG on presentation here shows a normal sinus rhythm with inferior lateral ST-T wave changes noted. Blood pressure on arrival 113/70 with a heart rate in the low 100s, 96% on room air. Blood pressure this morning 120/70 with a heart rate in the 80s, 97% on 2 L of oxygen. White blood cell count 8.7, hemoglobin 12.5, platelet count 225. Sodium 142, potassium 4.6, BUN 19 and creatinine 1.1. BNP level 12,400. Troponin's 0.047, .062, 0.060. Patient was initiated on IV Lasix in the emergency room, he has been diuresing well since then. We will continue IV diuretics, continue to monitor intake and output along with daily weights and daily lytes BUN and creatinine. Decrease aspirin 81 mg daily and start the patient on a statin. Past Medical History Past Medical History: Asthma, Cancer, COPD, Deep Vein Thrombosis (DVT), Hyperlipidemia, Myocardial Infarction ([place]) Additional Past Medical History / Comment(s): Ca of bladder, CHF (new dx as of 01/11/2019). DVT (not on anticoags-cleared by the doctor) Last Myocardial Infarction Date:: 11/2018 History of Any Multi-Drug Resistant Organisms: None Reported Past Surgical History: Bladder Surgery, Tonsillectomy Additional Past Surgical History / Comment(s): bladder tumor resection x2. Past Anesthesia/Blood Transfusion Reactions: No Reported Reaction Smoking Status: Never smoker - Past Family History Father Family Medical History: Asthma Additional Family Medical History / Comment(s): parkinsons Mother Additional Family Medical History / Comment(s): of old age Brother(s) Additional Family Medical History / Comment(s): heart valve replacement Medications and Allergies Home Medications Medication Instructions Recorded Confirmed Type Artificial Tears-Hypromellose 1 drops BOTH EYES TID PRN 11/01/17 01/11/19 History [Artificial Tear Drops] Budesonide/Formoterol Fumarate 2 puff INHALATION RT-HS 11/01/17 01/11/19 History [Symbicort 160-4.5 Mcg Inhaler] Tamsulosin [Flomax] 0.4 mg PO DAILY 02/24/18 01/11/19 History Anti-Oxidant 1 tab PO DAILY 01/11/19 01/11/19 History Aspirin [[place] Aspirin EC] 81 mg PO DAILY 01/11/19 01/11/19 History Melatonin 5 mg PO HS 01/11/19 01/11/19 History Metoprolol Tartrate 12.5 mg PO BID 01/11/19 01/11/19 History Allergies Allergy/AdvReac Type Severity Reaction Status Date / Time No Known Allergies Allergy Verified 01/11/19 20:47 Physical Exam Vitals: Vital Signs Temp Pulse Pulse Resp BP BP Pulse Ox 01/12/19 08:00 96.8 F L 89 18 121/75 97 01/12/19 04:00 99 17 01/12/19 03:43 98 F 99 17 150/85 97 01/12/19 00:43 97 01/12/19 00:00 114 H 17 01/11/19 23:41 97.9 F 114 H 17 144/94 97 01/11/19 23:00 99 18 119/76 96 01/11/19 22:00 105 H 127/95 97 01/11/19 21:00 96 111/89 96 01/11/19 20:14 99 01/11/19 20:07 100 01/11/19 20:00 100 130/86 97 01/11/19 19:24 97.7 F 103 H 24 113/70 96 Intake and Output 01/11/19 01/12/19 01/12/19 22:59 06:59 14:59 Intake Total 466.362 0 Output Total 600 Balance 466.362 -600 Intake: Intake, IV Titration 66.362 Amount Heparin Sod,Pork in 0.45% 66.362 NaCl 25,000 unit In 0.45 % NaCl 1 250ml.bag @ 10 mls/hr IV .Q24H [facility] Rx#: [id number] Oral 400 0 Output: Urine 600 Other: Voiding Method Toilet Toilet # Voids 700 Weight 90.718 kg 91.4 kg 91.4 kg PHYSICAL EXAMINATION: GENERAL: 83-year-old gentleman in no acute distress at the time of my examination HEENT: Head is atraumatic, normocephalic. Pupils equal, round. Sclera anicteric. Conjunctiva are clear. Mucous membranes of the mouth are moist. Neck is supple. There is elevated jugular venous pressure. No carotid bruit is heard. HEART EXAMINATION: Heart S1, S2 normal. No murmur or gallop heard. CHEST EXAMINATION: Lungs reveal diminished air entry to bilateral bases. ABDOMEN: Soft, nontender. Bowel sounds are heard. No organomegaly noted. EXTREMITIES: 2+ peripheral pulses with trace to 1+ evidence of peripheral edema and no calf tenderness noted. NEUROLOGIC patient is awake, alert and oriented 3 . . Results 01/12/19 05:43 01/12/19 05:43 Cardiac Enzymes 01/11/19 01/11/19 01/12/19 Range/Units 19:45 19:45 03:24 AST 47 (17-59) U/L Troponin I 0.047 H* 0.062 H* (0.000-0.034) ng/mL 01/12/19 Range/Units 08:58 AST (17-59) U/L Troponin I 0.060 H* (0.000-0.034) ng/mL Coagulation 01/11/19 01/12/19 Range/Units 19:45 05:43 PT 10.4 (9.0-12.0) sec APTT 21.2 L 32.3 H (22.0-30.0) sec CBC 01/11/19 01/12/19 Range/Units 19:45 05:43 WBC 6.6 8.7 (3.8-10.6) k/uL RBC 4.58 4.48 (4.30-5.90) m/uL Hgb 12.6 L 12.5 L (13.0-17.5) gm/dL Hct 40.8 39.8 (39.0-53.0) % Plt Count 228 225 (150-450) k/uL Comprehensive Metabolic Panel 01/11/19 01/12/19 Range/Units 19:45 05:43 Sodium 140 142 (137-145) mmol/L Potassium 4.4 4.6 (3.5-5.1) mmol/L Chloride 107 107 (98-107) mmol/L Carbon Dioxide 22 28 (22-30) mmol/L BUN 19 19 (9-20) mg/dL Creatinine 1.21 1.14 (0.66-1.25) mg/dL Glucose 182 H 142 H (74-99) mg/dL Calcium 8.9 9.0 (8.4-10.2) mg/dL AST 47 (17-59) U/L ALT 80 H (21-72) U/L Alkaline Phosphatase 58 (38-126) U/L Total Protein 6.3 (6.3-8.2) g/dL Albumin 3.9 (3.5-5.0) g/dL Current Medications Generic Name Dose Route Start Last Admin Trade Name Freq PRN Reason Stop Dose Admin Artificial Tears 1 drops 01/11/19 22:32 Artificial Tear Drops BOTH EYES TID PRN Dry Eye(s) Aspirin 325 mg 01/12/19 23:00 Aspirin PO DAILY [facility]SMIN Budesonide/Formoterol Fumarate 2 puff 01/11/19 23:00 01/12/19 00:42 Symbicort 160-4.5 Mcg Inhaler INHALATION 2 puff RT-HS OSMIN Administration Furosemide 40 mg 01/11/19 22:45 01/12/19 08:07 Lasix IV 40 mg Q12H [facility] Administration Heparin Sodium (Porcine) 0 unit 01/11/19 22:31 01/12/19 06:37 Heparin IV 4,000 unit PER PROTOCOL PRN Administration Low PTT Protocol Heparin Sodium/Sodium Chloride 250 mls @ 10 mls/hr 01/11/19 22:45 01/12/19 06:34 25,000 unit/ Sodium Chloride IV 13 units/kg/hr .Q24H O[facility]IN 11.79 mls/hr Titration Protocol Melatonin 5 mg 01/11/19 23:00 01/12/19 00:05 Melatonin PO 5 mg HS OSMIN Administration Metoprolol Tartrate 12.5 mg 01/12/19 09:00 01/12/19 08:06 Lopressor PO 12.5 mg BID OSMIN Administration Nitroglycerin 1 inch 01/12/19 09:00 01/12/19 08:06 Nitro-Bid Oint TOPICAL 1 inch QID OSMIN Administration Tamsulosin HCl 0.4 mg 01/12/19 09:00 01/12/19 08:06 Flomax PO 0.4 mg DAILY O[facility] Administration Intake and Output 01/11/19 01/12/19 01/12/19 22:59 06:59 14:59 Intake Total 466.362 0 Output Total 600 Balance 466.362 -600 Intake: Intake, IV Titration 66.362 Amount Heparin Sod,Pork in 0.45% 66.362 NaCl 25,000 unit In 0.45 % NaCl 1 250ml.bag @ 10 mls/hr IV .Q24H [facility] Rx#: [id number] Oral 400 0 Output: Urine 600 Other: Voiding Method Toilet Toilet # Voids 700 Weight 90.718 kg 91.4 kg 91.4 kg Patient Weight 01/13/19 06:59 Weight 91.4 kg 01/12/19 05:43 01/12/19 05:43 EKG Interpretations (text) EKG shows normal sinus rhythm with inferior lateral ST T wave changes Assessment and Plan Plan: Assessment and plan #1 exertional shortness of breath with evidence of congestive heart failure, diastolic, acute on chronic, most recent echo was performed in the office about 6 weeks ago which revealed a normal left ventricular systolic function with moderate MR #2 recent Mariama scan stress test performed 6 weeks ago which revealed a large inferior scar, patient was scheduled as an outpatient to undergo heart cath on February 08. #3 hyperlipidemia #4 abnormality in troponin, likely secondary to congestive cardiac failure, no significant rise and fall pattern. Plan We will repeat an echocardiogram with Doppler study. Continue current dose of IV Lasix. Start the patient on an JENNIFER inhibitor and continue beta elaine. Initiate statin. Continue IV heparin. We will continue to monitor intake and output along with daily weights and daily lytes BUN and creatinine. Once the patient's heart failure resolves, cardiac catheterization will be performed. Further recommendations will be based on these findings and patient's clinical course. DNP note has been reviewed, I agree with a documented findings and plan of care. Patient was seen and examined.
--- NOTE | 2019-01-12 15:42 | P.HPIM ---
History of Present Illness Chief Complaint: Shortness of breath This very pleasant 9-year-old gentleman with a past medical history significant for hyperlipidemia comes into the ER for above-mentioned complaints. The patient says that he was having shortness of breath for the past few days pain she when he walks but this morning as he was walking up the patient was feeling extremely tired and was short of breath, so that he could not walk he therefore came into the ER for further urology management. The patient otherwise does not complain of any cough, no chest pain racing heart, no abdominal pain, nausea and vomiting, or diarrhea constipation, no tingling numbness of any extremities, no itch no rash. Next ER course-patient was having A. fib in the ER. Vitals otherwise were stable. Labwork was done which showed WBC 8.7 hemoglobin 12.5 platelets 225 sodium 142 potassium 4.6 B1 19 creatinine 1.14 GFR more than 60 troponins were elevated. They wear 0.0 4.062 and 0.060 respectively. Patient was started on heparin drip. Patient was admitted to the hospitalist service a further urology management with cardiology consult Review of Systems All systems: negative Past Medical History Past Medical History: Asthma, Cancer, COPD, Deep Vein Thrombosis (DVT), Hyperlipidemia, Myocardial Infarction (AR) Additional Past Medical History / Comment(s): Ca of bladder, CHF (new dx as of 01/11/2019). DVT (not on anticoags-cleared by the doctor) Last Myocardial Infarction Date:: 11/2018 History of Any Multi-Drug Resistant Organisms: None Reported Past Surgical History: Bladder Surgery, Tonsillectomy Additional Past Surgical History / Comment(s): bladder tumor resection x2. Past Anesthesia/Blood Transfusion Reactions: No Reported Reaction Smoking Status: Never smoker - Past Family History Father Family Medical History: Asthma Additional Family Medical History / Comment(s): parkinsons Mother Additional Family Medical History / Comment(s): of old age Brother(s) Additional Family Medical History / Comment(s): heart valve replacement Medications and Allergies Home Medications Medication Instructions Recorded Confirmed Type Artificial Tears-Hypromellose 1 drops BOTH EYES TID PRN 11/01/17 01/11/19 History [Artificial Tear Drops] Budesonide/Formoterol Fumarate 2 puff INHALATION RT-HS 11/01/17 01/11/19 History [Symbicort 160-4.5 Mcg Inhaler] Tamsulosin [Flomax] 0.4 mg PO DAILY 02/24/18 01/11/19 History Anti-Oxidant 1 tab PO DAILY 01/11/19 01/11/19 History Aspirin [Herkimer Aspirin EC] 81 mg PO DAILY 01/11/19 01/11/19 History Melatonin 5 mg PO HS 01/11/19 01/11/19 History Metoprolol Tartrate 12.5 mg PO BID 01/11/19 01/11/19 History Allergies Allergy/AdvReac Type Severity Reaction Status Date / Time No Known Allergies Allergy Verified 01/11/19 20:47 Physical Exam Vitals: Vital Signs Temp Pulse Pulse Resp BP BP Pulse Ox 01/12/19 12:00 96.7 F L 96 18 113/68 96 01/12/19 08:00 96.8 F L 89 18 121/75 97 01/12/19 04:00 99 17 01/12/19 03:43 98 F 99 17 150/85 97 01/12/19 00:43 97 01/12/19 00:00 114 H 17 01/11/19 23:41 97.9 F 114 H 17 144/94 97 01/11/19 23:00 99 18 119/76 96 01/11/19 22:00 105 H 127/95 97 01/11/19 21:00 96 111/89 96 01/11/19 20:14 99 01/11/19 20:07 100 01/11/19 20:00 100 130/86 97 01/11/19 19:24 97.7 F 103 H 24 113/70 96 Intake and Output 01/12/19 01/12/19 01/12/19 06:59 14:59 22:59 Intake Total 466.362 334.91 Output Total 600 Balance 466.362 -265.09 Intake: Intake, IV Titration 66.362 94.91 Amount Heparin Sod,Pork in 0.45% 66.362 94.91 NaCl 25,000 unit In 0.45 % NaCl 1 250ml.bag @ 10 mls/hr IV .Q24H [facility] Rx#: [id number] Oral 400 240 Output: Urine 600 Other: Voiding Method Toilet Toilet # Voids 700 Weight 91.4 kg 91.4 kg On exam, alert and oriented x3. HEENT: Conjunctivae normal. eyes normal. NECK: No JVD. No thyroid enlargement. No LNs CARDIOVASCULAR: S1, S2 muffled. No murmur RESPIRATION: Breath sounds diminished in the bases. No rhonchi or crackles. No bronchial breathing. ABDOMEN: Soft, nontender . No guarding. no masses palpable. No ascites, No hepatosplenomegaly.Bowel sounds heard. LEGS: No edema. no swelling NERVOUS SYSTEM: Cranial N 2-12 grossly normal. Moves all 4 limbs. No focal deficits. No sensory deficit. No signs of cerebellar dysfucntion. Skin: no ulcer no rash Joints: No active swelling. No inflammation. Lymphatic system. No LN neck axilla or groin. Results CBC & Chem 7: 01/12/19 05:43 01/12/19 05:43 Labs: Abnormal Lab Results - Last 24 Hours (Table) 01/11/19 01/11/19 01/11/19 Range/Units 19:45 19:45 19:45 Hgb 12.6 L (13.0-17.5) gm/dL MCHC 30.9 L (31.0-37.0) g/dL Lymphocytes # 0.9 L (1.0-4.8) k/uL APTT 21.2 L (22.0-30.0) sec Glucose 182 H (74-99) mg/dL ALT 80 H (21-72) U/L Troponin I (0.000-0.034) ng/mL 01/11/19 01/12/19 01/12/19 Range/Units 19:45 03:24 05:43 Hgb 12.5 L (13.0-17.5) gm/dL MCHC (31.0-37.0) g/dL Lymphocytes # (1.0-4.8) k/uL APTT (22.0-30.0) sec Glucose (74-99) mg/dL ALT (21-72) U/L Troponin I 0.047 H* 0.062 H* (0.000-0.034) ng/mL 01/12/19 01/12/19 01/12/19 Range/Units 05:43 05:43 08:58 Hgb (13.0-17.5) gm/dL MCHC (31.0-37.0) g/dL Lymphocytes # (1.0-4.8) k/uL APTT 32.3 H (22.0-30.0) sec Glucose 142 H (74-99) mg/dL ALT (21-72) U/L Troponin I 0.060 H* (0.000-0.034) ng/mL 01/12/19 Range/Units 12:40 Hgb (13.0-17.5) gm/dL MCHC (31.0-37.0) g/dL Lymphocytes # (1.0-4.8) k/uL APTT 40.5 H (22.0-30.0) sec Glucose (74-99) mg/dL ALT (21-72) U/L Troponin I (0.000-0.034) ng/mL Thrombosis Risk Factor Assmnt - Choose All That Apply Each Factor Represents 1 point: Swollen legs (current) Each Risk Factor Represents 3 Points: Age 75 years or older, History of DVT/PE Thrombosis Risk Factor Assessment Total Risk Factor Score: 7 Thrombosis Risk Factor Assessment Level: High Risk Assessment and Plan Assessment: - CHF exacerbation - Hypertension - Hyperlipidemia - History of CAD - COPD Plan - We'll admit the patient to [facility] with telemetry -According to the family, he had A. fib while in the ER EKG done in the ER showed normal sinus rhythm I am not able to quantify whether he had A. fib or no at this stage. - He is on heparin we'll continue that - Cardiology is on board - Continue Lasix as per cardiology recommendations - Continue rest of the home medications - Possible heart cath once his CHF improves - DVT and GI prophylaxis - we will we'll order for lab work in the morning - Expected length of stay: 2 midnights - Patient wants to be full code Time with Patient: Greater than 30
[2019-01-12] MEDS: ATORVASTATIN 80 MG TAB PO SCH (21:04)
[2019-01-12] MEDS: HEPARIN SOD,PORK IN 0.45% NACL 25,000 UNIT in 0.45% NACL 1 250ML.BAG IV SCH (21:15)
[2019-01-12] MEDS ORDERED: ASPIRIN 325 MG TAB PO SCH (23:00)
[2019-01-13 07:12] LABS: Basophils % (A) 0 %; Eosinophils # (A) 0.2 k/uL (0-0.7); Eosinophils % (A) 2 %; HCT 40.1 % (39.0-53.0); HGB 12.9 gm/dL (13.0-17.5); Hypochromasia Slight; Lymphocytes # (A) 1.9 k/uL (1.0-4.8); Lymphocytes % (A) 19 %; MCH 28.4 pg (25.0-35.0); MCHC 32.1 g/dL (31.0-37.0); MCV 88.5 fL (80.0-100.0); Mean Platelet Volume 7.4; Monocytes # (A) 0.5 k/uL (0-1.0); Monocytes % (A) 5 %; Neutrophils % (A) 72 %; Platelet Count 245 k/uL (150-450); RBC 4.53 m/uL (4.30-5.90); RDW 15.2 % (11.5-15.5); WBC 9.7 k/uL (3.8-10.6)
[2019-01-13] MEDS: METOPROLOL TARTRATE 25 MG TAB PO SCH ×2 (09:08→21:20)
[2019-01-13] MEDS: LISINOPRIL 2.5 MG TAB PO SCH (09:08)
[2019-01-13] MEDS: ASPIRIN 81 MG PO SCH ×2 (09:08→22:37)
[2019-01-13] MEDS: NITROGLYCERIN OINT 1 INCH/GM PACKET TOPICAL SCH ×5 (09:09→22:37)
[2019-01-13] MEDS: FUROSEMIDE 10 MG/ML 4 ML VIAL IV SCH ×2 (09:09→22:29)
[2019-01-13] MEDS: TAMSULOSIN 0.4 MG CAP.ER.24H PO SCH (09:09)
[2019-01-13 10:11] LABS: Calcium 9.2 mg/dL (8.4-10.2); Potassium 4.4 mmol/L (3.5-5.1)
[2019-01-13] MEDS ORDERED: ALPRAZolam 0.5 MG TAB PO PRN (12:09)
[2019-01-13] MEDS ORDERED: ALPRAZolam 0.25 MG TAB PO PRN (12:09)
[2019-01-13] MEDS ORDERED: SODIUM CHLORIDE 0.9% 1,000 ML in EMPTY BAG 1 BAG IV ONE (12:09)
[2019-01-13] MEDS ORDERED: NITROGLYCERIN SL TABS 0.4 MG TAB SUBLINGUAL PRN (12:09)
--- NOTE | 2019-01-13 13:13 | P.PN ---
Subjective Patient says that he's doing okay. Shortness of breath is better No chest pain racing heart Objective - Vital Signs Vital signs: Vital Signs Temp 98.5 F 01/13/19 04:00 Pulse 77 01/13/19 04:00 Resp 19 01/13/19 04:00 BP 136/71 01/13/19 04:00 Pulse Ox 94 L 01/13/19 04:00 Intake & Output 01/12/19 01/13/19 01/13/19 18:59 06:59 18:59 Intake Total 556.91 88.728 240 Output Total 600 850 Balance -43.09 88.728 -610 Weight 91.4 kg 90.5 kg Intake: Intake, IV Titration 94.91 88.728 Amount Heparin Sod,Pork in 0.45% 94.91 88.728 NaCl 25,000 unit In 0.45 % NaCl 1 250ml.bag @ 10 mls/hr IV .Q24H [facility] Rx#: [id number] Oral 462 240 Output: Urine 600 850 Other: Voiding Method Toilet Toilet # Voids 3 - Exam On exam, alert and oriented x3. HEENT: Conjunctivae normal. eyes normal. NECK: No JVD. No thyroid enlargement. No LNs CARDIOVASCULAR: S1, S2 muffled. No murmur RESPIRATION: Breath sounds diminished in the bases. No rhonchi or crackles. No bronchial breathing. ABDOMEN: Soft, nontender . No guarding. no masses palpable. No ascites, No hepatosplenomegaly.Bowel sounds heard. LEGS: No edema. no swelling NERVOUS SYSTEM: Cranial N 2-12 grossly normal. Moves all 4 limbs. No focal deficits. No sensory deficit. No signs of cerebellar dysfucntion. Skin: no ulcer no rash - Labs CBC & Chem 7: 01/13/19 06:03 01/13/19 06:03 Labs: Abnormal Lab Results - Last 24 Hours (Table) 01/12/19 01/12/19 01/13/19 Range/Units 12:40 20:46 06:03 Hgb 12.9 L (13.0-17.5) gm/dL APTT 40.5 H 60.7 H (22.0-30.0) sec BUN (9-20) mg/dL Glucose (74-99) mg/dL 01/13/19 01/13/19 Range/Units 06:03 06:03 Hgb (13.0-17.5) gm/dL APTT 54.5 H (22.0-30.0) sec BUN 25 H (9-20) mg/dL Glucose 182 H (74-99) mg/dL Assessment and Plan Assessment: - CHF exacerbation - Hypertension - Hyperlipidemia - History of CAD - COPD Plan - Plan for JAD and cardiac cath tomorrow - Continue the current medication plan - Continue heparin - We'll follow the patient Time with Patient: Greater than 30
--- NOTE | 2019-01-13 15:28 | P.PN ---
Subjective Progress Note Date: 01/13/19 This is a pleasant 83-year-old gentleman who has a known history of hyperlipidemia, history of bladder cancer, asthma, prior DVT, approximately 8 weeks ago, the patient was out shopping somewhat, he states that he became extremely tired, was short of breath and diaphoretic, went into the house and had a brief syncopal episode. He did not seek medical attention at that time, but since that time the patient has been experiencing exertional shortness of breath and is noticed some peripheral edema. 6 weeks ago the patient went to see his primary care doctor who referred him to cardiology, the patient was seen by Dr. Marie, underwent a stress test which revealed a large inferior scar, he had an echo performed at that visit which also showed a normal ejection fraction with moderate mitral regurgitation. Dr. Marie did have a discussion with the patient and the family regarding proceeding with medical therapy or performing a cardiac cath. The patient opted medical therapy. This past Friday he was again seen in the office, continues to have significant exertional shortness of breath, and for this reason had opted to proceed with cardiac catheterization. Cardiac catheterization was scheduled for February 08. He presents to the hospital on this admission with symptoms again of moderate to severe exertional shortness of breath. According to the patient he was walking up the stairs with the laundry and felt that so he could hardly make it because he became extremely tired and weak and was short of breath. He ultimately came to the emergency room on this occasion for further evaluation and treatment. His chest x-ray on admission here showed just of heart failure exacerbation. Small bilateral pleural effusions. EKG on presentation here shows a normal sinus rhythm with inferior lateral ST-T wave changes noted. Blood pressure on arrival 113/70 with a heart rate in the low 100s, 96% on room air. Blood pressure this morning 120/70 with a heart rate in the 80s, 97% on 2 L of oxygen. White blood cell count 8.7, hemoglobin 12.5, platelet count 225. Sodium 142, potassium 4.6, BUN 19 and creatinine 1.1. BNP level 12,400. Troponin's 0.047, .062, 0.060. Patient was initiated on IV Lasix in the emergency room, he has been diuresing well since then. We will continue IV diuretics, continue to monitor intake and output along with daily weights and daily lytes BUN and creatinine. Decrease aspirin 81 mg daily and start the patient on a statin. 01/13/2019 Gianni was seen and examined this morning, he diuresed well through the night last night, his weight is down a kilograms today. He does state overall his breathing is improving. Blood pressure 126/70 heart rate low 100s, 97% on 2 L of oxygen. White blood cell count 9.7, hemoglobin 12.9, platelet count 245. Sodium 138, potassium 4.4, BUN 25 and creatinine 1.1. We will continue with current dose of IV Lasix. Echo remains pending. Objective - Vital Signs Vital signs: Vital Signs Temp 97.3 F L 01/13/19 12:00 Pulse 102 H 01/13/19 12:00 Resp 16 01/13/19 12:00 BP 126/79 01/13/19 12:00 Pulse Ox 97 01/13/19 12:00 Intake & Output 01/12/19 01/13/19 01/13/19 18:59 06:59 18:59 Intake Total 556.91 88.728 480 Output Total 600 1650 Balance -43.09 88.728 -1170 Weight 91.4 kg 90.5 kg Intake: Intake, IV Titration 94.91 88.728 Amount Heparin Sod,Pork in 0.45% 94.91 88.728 NaCl 25,000 unit In 0.45 % NaCl 1 250ml.bag @ 10 mls/hr IV .Q24H [facility] Rx#: [id number] Oral 462 480 Output: Urine 600 1650 Other: Voiding Method Toilet Toilet Toilet # Voids 3 - Exam PHYSICAL EXAMINATION: GENERAL: 83-year-old gentleman in no acute distress at the time of my examination HEENT: Head is atraumatic, normocephalic. Pupils equal, round. Sclera anicteric. Conjunctiva are clear. Mucous membranes of the mouth are moist. Neck is supple. There is elevated jugular venous pressure. No carotid bruit is heard. HEART EXAMINATION: Heart S1, S2 normal. No murmur or gallop heard. CHEST EXAMINATION: Lungs reveal improvement in air entry to bilateral bases. ABDOMEN: Soft, nontender. Bowel sounds are heard. No organomegaly noted. EXTREMITIES: 2+ peripheral pulses with trace to 1+ evidence of peripheral edema and no calf tenderness noted. NEUROLOGIC patient is awake, alert and oriented 3 . - Labs CBC & Chem 7: 01/13/19 06:03 01/13/19 06:03 Labs: Abnormal Lab Results - Last 24 Hours (Table) 01/12/19 01/13/19 01/13/19 Range/Units 20:46 06:03 06:03 Hgb 12.9 L (13.0-17.5) gm/dL APTT 60.7 H 54.5 H (22.0-30.0) sec BUN (9-20) mg/dL Glucose (74-99) mg/dL 01/13/19 Range/Units 06:03 Hgb (13.0-17.5) gm/dL APTT (22.0-30.0) sec BUN 25 H (9-20) mg/dL Glucose 182 H (74-99) mg/dL Assessment and Plan Plan: Assessment and plan #1 exertional shortness of breath with evidence of congestive heart failure, diastolic, acute on chronic, most recent echo was performed in the office about 6 weeks ago which revealed a normal left ventricular systolic function with moderate MR #2 recent Mariama scan stress test performed 6 weeks ago which revealed a large inferior scar, patient was scheduled as an outpatient to undergo heart cath on February 08. #3 hyperlipidemia #4 abnormality in troponin, likely secondary to congestive cardiac failure, no significant rise and fall pattern. Plan We await the results of the echocardiogram with Doppler study. We will continue current dose of IV Lasix. Patient will be scheduled tomorrow to undergo JAD and cardiac catheterization by Dr. Griffin. The risks and the benefits of these tests were explained to the patient in detail and he is willing to proceed. DNP note has been reviewed, I agree with a documented findings and plan of care. Patient was seen and examined.
[2019-01-13] MEDS: HEPARIN SOD,PORK IN 0.45% NACL 25,000 UNIT in 0.45% NACL 1 250ML.BAG IV SCH (17:28)
--- NOTE | 2019-01-13 18:16 | ECHOF ---
Referral Reason: MEASUREMENTS -------- HEIGHT: 172.7 cm WEIGHT: 91.2 kg BP: 121/75 RVIDd: 3.8 cm (< 3.3) IVSd: 1.0 cm (0.6 - 1.1) LVIDd: 5.4 cm (3.9 - 5.3) LVPWd: 1.5 cm (0.6 - 1.1) IVSs: 1.5 cm LVIDs: 4.1 cm LVPWs: 1.5 cm Ao Diam: 3.3 cm (2.0 - 3.7) AV Cusp: 2.2 cm (1.5 - 2.6) LA Diam: 3.2 cm (2.7 - 3.8) MV EXCURSION: 15.857 mm (> 18.000) MV EF SLOPE: 177 mm/s (70 - 150) EPSS: 1.1 cm RAP: 5.00 mmHg RVSP: 30.73 mmHg FINDINGS -------- Atrial fibrillation. This was a technically good study. The left ventricular size is normal. There is mild concentric left ventricular hypertrophy. Overa ll left ventricular systolic function is mildly impaired with, an EF between 45 - 50 %. Basal infer oseptal LV wall motion is hypokinetic. Mid inferoseptal LV wall motion is hypokinetic. The right ventricle is mild to moderately enlarged. The left atrial size is normal. RA appears enlarged. The aortic valve is trileaflet and appears structurally normal. [id number] mitral regurgitation is present. There is mild mitral valve prolapse , predomina tely a posteriorly directed jet. Mild tricuspid regurgitation present. The right ventricular systolic pressure, as measured by Doppl er, is 30.73mmHg. There is no pulmonic regurgitation present. The aortic root size is normal. IVC Not well visulized. The pericardium is normal. CONCLUSIONS -------- 1. Atrial fibrillation. 2. This was a technically good study. 3. The left ventricular size is normal. 4. There is mild concentric left ventricular hypertrophy. 5. Basal inferoseptal LV wall motion is hypokinetic. 6. Mid inferoseptal LV wall motion is hypokinetic. 7. The right ventricle is mild to moderately enlarged. 8. The left atrial size is normal. 9. RA appears enlarged. 10. The aortic valve is trileaflet and appears structurally normal. 11. Ssyhclir-st-tuqmnk mitral regurgitation is present. 12. There is mild mitral valve prolapse. 13. , predominately a posteriorly directed jet. 14. Mild tricuspid regurgitation present. 15. The right ventricular systolic pressure, as measured by Doppler, is 30.73mmHg. 16. There is no pulmonic regurgitation present. 17. The aortic root size is normal. 18. IVC Not well visulized. 19. The pericardium is normal. POLICE OFFICER [employer] PREVENTION: Marie Stewart RDCS
[2019-01-13] MEDS: SYMBICORT 160-4.5 MCG INHALER INHALATION SCH (20:32)
[2019-01-13] MEDS: ATORVASTATIN 80 MG TAB PO SCH (21:20)
[2019-01-13] MEDS: MELATONIN 5 MG TABLET PO SCH (21:20)
[2019-01-14] MEDS ORDERED: ATORVASTATIN 80 MG TAB PO ONE (06:00)
[2019-01-14] MEDS ORDERED: ASPIRIN 325 MG TAB PO ONE (06:00)
[2019-01-14] MEDS ORDERED: SODIUM CHLORIDE 0.9% 1,000 ML in EMPTY BAG 1 BAG IV ONE (06:00)
[2019-01-14] MEDS: METOPROLOL TARTRATE 25 MG TAB PO SCH ×2 (06:15→20:09)
[2019-01-14] MEDS: LISINOPRIL 2.5 MG TAB PO SCH (06:16)
[2019-01-14 06:28] LABS: Glucose,Whole Blood 140 mg/dL (75-99)
[2019-01-14 06:44] LABS: Basophils % (A) 1 %; Eosinophils # (A) 0.2 k/uL (0-0.7); Eosinophils % (A) 3 %; HCT 38.4 % (39.0-53.0); HGB 12.2 gm/dL (13.0-17.5); Lymphocytes # (A) 1.5 k/uL (1.0-4.8); Lymphocytes % (A) 20 %; MCH 27.8 pg (25.0-35.0); MCHC 31.7 g/dL (31.0-37.0); MCV 87.8 fL (80.0-100.0); Monocytes # (A) 0.5 k/uL (0-1.0); Monocytes % (A) 7 %; Neutrophils # (A) 4.9 k/uL (1.3-7.7); Neutrophils % (A) 68 %; Platelet Count 195 k/uL (150-450); RBC 4.38 m/uL (4.30-5.90); RDW 15.2 % (11.5-15.5); WBC 7.1 k/uL (3.8-10.6)
[2019-01-14 07:33] LABS: Calcium 8.8 mg/dL (8.4-10.2); Potassium 3.7 mmol/L (3.5-5.1)
[2019-01-14] MEDS ORDERED: fentaNYL (PF) 50 MCG/ML 2 ML AMP ONE (09:09)
[2019-01-14] MEDS: BENZOCAINE SPRAY 1 CAN MUCOUS MEM ONE ×3 (09:31→09:49)
[2019-01-14] MEDS ORDERED: IV FLUID CONTINUATION 600 ML IV ONE (09:33)
[2019-01-14] MEDS ORDERED: LIDOCAINE 1% INJ 10MG/ML (20 ML MDV) ONE (09:36)
[2019-01-14] MEDS ORDERED: VERAPAMIL 2.5 MG/ML 2 ML AMP ONE (09:36)
[2019-01-14] MEDS ORDERED: MIDAZOLAM 2 MG/2 ML VIAL IVP ONE ×2 (09:49→09:57)
[2019-01-14] MEDS ORDERED: fentaNYL (PF) 50 MCG/ML 2 ML AMP IV ONE (09:49)
[2019-01-14] MEDS ORDERED: SODIUM CHLORIDE 0.9% 1,000 ML IV ONE (10:10)
[2019-01-14] MEDS ORDERED: HEPARIN SODIUM 1,000 UN/ML (10ML VL) ONE (10:59)
[2019-01-14] MEDS ORDERED: LIDOCAINE 1% INJ 10MG/ML (20 ML MDV) SQ ONE (11:04)
[2019-01-14] MEDS: VERAPAMIL SYRINGE (5 MG/10 ML) INTRAARTER ONE ×2 (11:06→11:18)
[2019-01-14] MEDS ORDERED: HEPARIN SODIUM 1,000 UN/ML (10ML VL) IV ONE (11:08)
[2019-01-14] MEDS ORDERED: IOPAMIDOL-370 150ML BTL INJ ONE (11:18)
[2019-01-14] MEDS ORDERED: RX INFO: IV CONTRAST WAS GIVEN 1 EACH MISC MISCELLANE PRN (11:27)
[2019-01-14] MEDS ORDERED: SODIUM CHLORIDE 0.9% 1,000 ML IV SCH (11:30)
--- NOTE | 2019-01-14 12:29 | CC ---
CARDIAC CATHETERIZATION REPORT DATE OF SERVICE: January 14, 2019 PERFORMING PHYSICIAN: Bladimir Griffin MD, rcp. PROCEDURE PERFORMED: 1. Selective right and left coronary angiogram. 2. Left heart catheterization. INDICATION: This is a pleasant 83-year-old gentleman who presented to the hospital with shortness of breath and heart failure. He underwent an echocardiogram which revealed moderate to severe mitral regurgitation. The echo also showed mildly impaired LV function with EF between 45% to 50% with inferobasal hypokinesia. The patient was seen by Dr. Chong who had a concern about severe underlying coronary artery disease. APPROACH: Right radial artery. COMPLICATION: None. LEVEL OF SEDATION: Moderate with sedation length of 16 minutes. PROCEDURE DESCRIPTION: After obtaining an informed consent, the patient was brought to the cardiac laborer cement gun placing. The right radial artery was cannulated using micropuncture technique, the micropuncture wire passed easily then I placed a 6-Dutch sheath in the right radial artery. I gave the patient 2 mg of verapamil IA and 10,000 units of heparin IV. After that, I did selective right and left coronary angiogram using JR4 and JL3.5 catheters. The left heart catheterization was performed using JR4 which flipped into the LV then I did pullback across aortic valve. The procedure was completed without any complication. SELECTIVE CORONARY ANGIOGRAM: 1. The right coronary artery is a large caliber vessel and it is a dominant vessel. The proximal RCA has mild disease only. The mid RCA has a lesion appeared to be in the range of 70% to 80% and the RCA distally has a critical lesion in the range of 99.9%. This is just before the bifurcation into PDA and PLV branches. 2. The left main has a lesion appeared to be in the range of 50%. It bifurcates into the left circumflex and left anterior descending artery. 3. The left circumflex is a large caliber vessel. It is a nondominant vessel. The ostial circumflex appeared to have disease in the range of 50%. The proximal circumflex appeared to have mild disease only and gives rise into a large OM branch which appeared to have mild disease only. The circumflex continued after that as a small-caliber vessel in the AV groove. 4. The LAD: The ostial LAD appeared to be involved in the plaque from the left main. The proximal LAD appeared to have mild to moderate disease by the bifurcation of the first diagonal branch which is a moderate caliber vessel with mild disease only. The LAD distally appeared to have mild disease only, but the LAD does not reach the apex. HEMODYNAMICS: The left ventricular end-diastolic pressure was 12 mmHg and no significant gradient was seen across the aortic valve. CONCLUSION: 1. Critical disease involving the distal right coronary artery and severe disease involving the mid right coronary artery. 2. Intermediate disease involving the distal left main coronary artery. POSTPROCEDURE MANAGEMENT: Giving the above anatomy and in the presence of severe mitral regurgitation, I did recommend obtaining a consult for a surgical opinion for the evaluation of coronary artery bypass grafting with mitral valve repair. The case will be discussed with the family. MMODL / IJN: [id number] /
[2019-01-14] MEDS: NITROGLYCERIN OINT 1 INCH/GM PACKET TOPICAL SCH ×3 (14:42→20:09)
[2019-01-14] MEDS: FUROSEMIDE 10 MG/ML 4 ML VIAL IV SCH ×2 (14:42→20:09)
[2019-01-14] MEDS: HEPARIN SOD,PORK IN 0.45% NACL 25,000 UNIT in 0.45% NACL 1 250ML.BAG IV SCH (16:51)
[2019-01-14] MEDS: TAMSULOSIN 0.4 MG CAP.ER.24H PO SCH (17:12)
[2019-01-14 17:17] LABS: Appearance,Urine Clear (Clear); Bilirubin,Urine Negative (Negative); Blood,Urine Negative (Negative); Color,Urine Yellow; Glucose,Urine (UA) 1+ (Negative); Ketones,Urine Negative (Negative); Leukocyte Esterase,Urine Negative (Negative); Nitrite,Urine Negative (Negative); PH, Urine 5.5 (5.0-8.0); Protein,Urine Trace (Negative); Urobilinogen,Urine <2.0 mg/dL (<2.0)
--- NOTE | 2019-01-14 17:17 | US ---
EXAMINATION TYPE: US carotid duplex BILAT DATE OF EXAM: 01/14/2019 COMPARISON: NONE CLINICAL HISTORY: preop cardiac surgery. EXAM MEASUREMENTS: RIGHT: Peak Systolic Velocity (PSV) cm/sec ----- Right CCA: 69.7 ----- Right ICA: 79.7 ----- Right ECA: 56.5 ICA/CCA ratio: 1.1 RIGHT: End Diastole cm/sec ----- Right CCA: 22.6 ----- Right ICA: 25.6 ----- Right ECA: 7.7 LEFT: Peak Systolic Velocity (PSV) cm/sec ----- Left CCA: 49.3 ----- Left ICA: 52.01 ----- Left ECA: 80.6 ICA/CCA ratio: 1.1 LEFT: End Diastole cm/sec ----- Left CCA: 13.0 ----- Left ICA: 12.4 ----- Left ECA: 8.5 VERTEBRALS (direction of flow): Right Vertebral: Antegrade Left Vertebral: Antegrade Rhythm: Normal No significant velocity elevations, mild atherosclerotic changes. IMPRESSION: There is antegrade flow in the vertebral arteries. The images in measurements suggest 30 -40% stenosis in both internal carotid arteries. Criteria for Assigning % of Stenosis / Diameter reduction (Estimation based on the indirect measurements of the internal carotid artery velocities (ICA PSV). 1. Normal (no stenosis)=ICA PSV < 125 cm/s: ratio < 2.0: ICA EDV<40 cm/s. 2. Less than 50% stenosis=ICA PSV < 125 cm/s: ratio < 2.0: ICA EDV<40 cm/s. 3. 50 to 69% stenosis=ICA PSV of 125 to 230 cm/s: ration 2.0 ? 4.0: ICA EDV 40-100 cm/s. 4. Greater than 70% stenosis to near occlusion= ICA PSV > 230 cm/s: ratio > 4.0: ICA EDV > 100 cm/s. 5. Near occlusion= ICA PSV velocities may be low or undetectable: variable ratio and ICA EDV. 6. Total occlusion=unable to detect flow.
[2019-01-14 17:26] LABS: Specific Gravity,Urine 1.048 (1.001-1.035)
--- NOTE | 2019-01-14 17:33 | P.GSCN ---
History of Present Illness Consult date: 01/14/19 Reason for Consult: Coronary artery disease, severe mitral valve regurgitation, surgical recommendation Requesting physician: Bladimir Griffin History of present illness: This is an 83-year-old very active gentleman who follows on an outpatient basis with Dr. Dueñas in [place]. He has a previous medical history of asthma, hy perlipidemia, bladder cancer with BCG treatment with subsequent DVT not on anticoagulation, enlarged prostate, and never smoker. He has had a two-month history of progressive exertional dyspnea and chest tightness associated with intermittent extreme fatigue following a myocardial infarction with syncope approximately 8 weeks ago. He did not choose to seek medical attention at that time as he attributed his symptoms to asthma, however he did end up following up with Dr. Griffin in the office, he had a stress test which demonstrated an inferior scar, he had an echocardiogram which demonstrated normal LV function with moderate mitral regurgitation. He was recommended to undergo heart catheteri zation, however the patient preferred medical therapy initially. He continued to have exertional dyspnea and did finally agree to heart catheterization which was scheduled as an outpatient procedure on February 08. Unfortunately he didn't quite make it to that appointment as he came in to [facility] emergency room on January 11 at the request of his family as they noticed he was clearly not feeling well. EKG was completed demonstrating normal sinus rhythm with inferior and lateral ST changes. His initial troponin was 0.04. Chest x-ray was completed demonstrating heart failure with central vascular congestion and small bilateral pleural effusions. BNP was 12,400. He was admitted for evaluation and treatment. IV heparin was initiated as well as IV Lasix, and he has diuresed nicely. On January 12 a transthoracic echocardiogram was completed demonstrating mildly impaired left ventricular systolic function with an ejection fraction 45-50% with basal inferoseptal, and mid inferoseptal LV wall motion hypokinesis, right atrial and ventricular enlargement, moderate to severe mitral regurgitation with mild mitral prolapse and a posteriorly directed jet, and mild tricuspid regurgitation. His second troponin was 0.06. Of note, there are reports that he had paroxysmal atrial fibrillation in the emergency room, however this was not caught on EKG. He was once again recommended to undergo heart catheterization, and additionally transesophageal echocardiogram. Both of these studies were completed today. The heart catheterization demonstrated left main stenosis 50%, ostial circumflex lesion 50%, proximal LAD with mild to moderate disease, mid RCA 70-80% with distal RCA 99%. Transesophageal echocardiogram confirmed wide open severe mitral regurgitation. Dr. Boykin from cardiothoracic surgery was consulted regarding surgical recommendations. Review of Systems Review of systems was completed and was negative except as noted in the HPI. Past Medical History Past Medical History: Asthma, Cancer, COPD, Deep Vein Thrombosis (DVT), Hyperlipidemia, Myocardial Infarction (RI) Additional Past Medical History / Comment(s): Ca of bladder, CHF (new dx as of 01/11/2019). DVT (not on anticoags-cleared by the doctor) Last Myocardial Infarction Date:: 11/2018 History of Any Multi-Drug Resistant Organisms: None Reported Past Surgical History: Bladder Surgery, Tonsillectomy Additional Past Surgical History / Comment(s): bladder tumor resection x2. Past Anesthesia/Blood Transfusion Reactions: No Reported Reaction Past Psychological History: No Psychological Hx Reported Smoking Status: Never smoker Past Alcohol Use History: None Reported Past Drug Use History: None Reported - Past Family History Father Family Medical History: Asthma Additional Family Medical History / Comment(s): parkinsons Mother Additional Family Medical History / Comment(s): of old age Brother(s) Additional Family Medical History / Comment(s): heart valve replacement Medications and Allergies Home Medications Medication Instructions Recorded Confirmed Type Artificial Tears-Hypromellose 1 drops BOTH EYES TID PRN 11/01/17 01/11/19 History [Artificial Tear Drops] Budesonide/Formoterol Fumarate 2 puff INHALATION RT-HS 11/01/17 01/11/19 History [Symbicort 160-4.5 Mcg Inhaler] Tamsulosin [Flomax] 0.4 mg PO DAILY 02/24/18 01/11/19 History Anti-Oxidant 1 tab PO DAILY 01/11/19 01/11/19 History Aspirin [Kiln Aspirin EC] 81 mg PO DAILY 01/11/19 01/11/19 History Melatonin 5 mg PO HS 01/11/19 01/11/19 History Metoprolol Tartrate 12.5 mg PO BID 01/11/19 01/11/19 History Allergies Allergy/AdvReac Type Severity Reaction Status Date / Time No Known Allergies Allergy Verified 01/11/19 20:47 Surgical - Exam Vital Signs Temp Pulse Resp BP Pulse Ox 97.7 F 103 H 24 113/70 96 01/11/19 19:24 01/11/19 19:24 01/11/19 19:24 01/11/19 19:24 01/11/19 19:24 - General well developed, well nourished, no distress, no pain - Eyes PERRL, normal ocular movement - ENT no hearing loss - Neck no masses, no bruits, trachea midline - Respiratory Lungs sounds clear but diminished bilaterally with faint expiratory wheezes in the right lung base. Respirations even, nonlabored. Currently on room air with oxygen saturation 94%. - Cardiovascular S1, S2 present. No murmur heard. Regular rate and rhythm, sinus rhythm on telemetry. Palpable peripheral pulses bilaterally. No edema present. No calf pain or tenderness noted. Positive varicosities to bilateral lower extremities. - Abdomen Abdomen: soft, non tender, bowel sounds - Genitourinary Deferred - Rectum Deferred - Integumentary no rash, no growths - Neurologic normal coordination, normal sensation - Musculoskeletal normal posture - Psychiatric oriented to time, oriented to person, oriented to place, speech is normal, memory intact Results - Labs 01/14/19 06:11 01/14/19 06:11 Abnormal Lab Results - Last 24 Hours (Table) 01/14/19 01/14/19 01/14/19 Range/Units 06:11 06:11 06:11 Hgb 12.2 L (13.0-17.5) gm/dL Hct 38.4 L (39.0-53.0) % APTT 50.8 H (22.0-30.0) sec BUN 29 H (9-20) mg/dL Glucose 135 H (74-99) mg/dL POC Glucose (mg/dL) (75-99) mg/dL 01/14/19 01/14/19 Range/Units 06:26 15:08 Hgb (13.0-17.5) gm/dL Hct (39.0-53.0) % APTT 31.7 H (22.0-30.0) sec BUN (9-20) mg/dL Glucose (74-99) mg/dL POC Glucose (mg/dL) 140 H (75-99) mg/dL Diabetes panel 01/14/19 01/14/19 Range/Units 06:11 06:11 Sodium 138 (137-145) mmol/L Potassium 3.7 (3.5-5.1) mmol/L Chloride 104 (98-107) mmol/L Carbon Dioxide 25 (22-30) mmol/L BUN 29 H (9-20) mg/dL Creatinine 1.11 (0.66-1.25) mg/dL Glucose 135 H (74-99) mg/dL Calcium 8.8 (8.4-10.2) mg/dL Triglycerides 74 (<150) mg/dL HDL Cholesterol 46 (40-60) mg/dL Thyroid panel 01/14/19 Range/Units 06:11 TSH 2.310 (0.465-4.680) mIU/L Calcium panel 01/14/19 Range/Units 06:11 Calcium 8.8 (8.4-10.2) mg/dL Pituitary panel 01/14/19 01/14/19 Range/Units 06:11 06:11 Sodium 138 (137-145) mmol/L Potassium 3.7 (3.5-5.1) mmol/L Chloride 104 (98-107) mmol/L Carbon Dioxide 25 (22-30) mmol/L BUN 29 H (9-20) mg/dL Creatinine 1.11 (0.66-1.25) mg/dL Glucose 135 H (74-99) mg/dL Calcium 8.8 (8.4-10.2) mg/dL TSH 2.310 (0.465-4.680) mIU/L Adrenal panel 01/14/19 Range/Units 06:11 Sodium 138 (137-145) mmol/L Potassium 3.7 (3.5-5.1) mmol/L Chloride 104 (98-107) mmol/L Carbon Dioxide 25 (22-30) mmol/L BUN 29 H (9-20) mg/dL Creatinine 1.11 (0.66-1.25) mg/dL Glucose 135 H (74-99) mg/dL Calcium 8.8 (8.4-10.2) mg/dL - Imaging Chest x-ray: report reviewed, image reviewed EKG: image reviewed Additional studies: Heart catheterization and echocardiogram films reviewed with Dr. Boykin Assessment and Plan Assessment: 1. Coronary artery disease with left main stenosis 2. Severe mitral regurgitation 3. Troponin elevation with inferior and lateral ST changes on his initial EKG, likely non-STEMI 4. Acute systolic heart failure with presenting BNP 12,400 5. Episode of paroxysmal atrial fibrillation in the emergency room, currently in normal sinus rhythm 6. History of myocardial infarction with syncope and proximally 8 weeks ago without medical treatment 7. History of asthma, never smoker 8. History of bladder cancer status post tumor resection and BCG treatment 9. History of DVT after bladder resection, not on anticoagulation 10. Hyperlipidemia Plan: The patient was seen and examined at the bedside with Dr. Boykin. Chart/diagnostics were reviewed, including heart catheterization and echocardiogram films. We offered the patient coronary artery bypass grafting with mitral valve repair, possible replacement. The usual perioperative course was discussed in detail with the patient and his family, all questions were answered, and patient is agreeable to consider surgery at this facility. Preoperative testing was initiated. We recommend continuing aspirin, statin, beta elaine therapy as well as diuresis. We would like to maximize patient's pulmonary status. Patient will need dental clearance prior to surgery and this was discussed and agreeable to the patient, he does see a dentist on a regular basis and believes he was just there a little over a month ago. STS risk score will be calculated once testing has been completed and discussed with the patient and his family. From our standpoint the patient does not need to stay in-patient until surgery, and would likely benefit from maximizing his medical status at home prior to surgical intervention. This of course is at the discretion of cardiology and primary care service. The patient should be encouraged to increase activity and ambulation in the hallway. Encourage incentive spirometry use. We will continue to monitor and make further recommendations based on patient's progress. Thank you Dr. Griffin for this consult. We look forward to working with you in the care of your patient. Time with Patient: Greater than 30
[2019-01-14] MEDS: SYMBICORT 160-4.5 MCG INHALER INHALATION SCH (19:54)
[2019-01-14] MEDS: MELATONIN 5 MG TABLET PO SCH (20:09)
[2019-01-14] MEDS: ATORVASTATIN 80 MG TAB PO SCH (20:09)
[2019-01-14 20:19] LABS: Hemoglobin A1C 6.5 % (4.0-6.0)
[2019-01-14 20:24] LABS: Hepatitis A Antibody IgM Non-Reactive (Non-Reactive); Hepatitis B Core IgM Non-Reactive (Non-Reactive)
--- NOTE | 2019-01-14 23:41 | P.PN ---
Subjective This very pleasant 83-year-old gentleman with a past medical history significant for hyperlipidemia presents with dyspnea. The patient says that he was having shortness of breath for the past few days pain she when he walks but this morning as he was walking up the patient was feeling extremely tired and was short of breath, so that he could not walk he therefore came into the ER for further urology management. The patient otherwise does not complain of any cough, no chest pain racing heart, no abdominal pain, nausea and vomiting, or diarrhea constipation, no tingling numbness of any extremities, no itch no rash. Next ER course-patient was having A. fib in the ER. Vitals otherwise were stable. Labwork was done which showed WBC 8.7 hemoglobin 12.5 platelets 225 sodium 142 potassium 4.6 B1 19 creatinine 1.14 GFR more than 60 troponins were elevated. They wear 0.0 4.062 and 0.060 respectively. Patient was started on heparin drip. Patient was admitted to the hospitalist service a further urology management with cardiology consult 01/14/2019 today pt had cardiac cath and JAD for evaluation of his valve disease and found to have multiple coronary artery disease , left main stenosis 50%, ostial circumflex lesion 50%, proximal LAD with mild to moderate disease, mid RCA 70- 80% with distal RCA 99%. JAD showed severe mitral regurgitation. cardiothoracic surgery has been consulted who recommended surgical intervention , pending the patient and family final decision. However from cardiothoracic surgery standard and view pt can be discharge and follow with cardiothoracic surgery as outpt for pre-op work up. pt was not home oxygen and is been evaluated for this purpose, cardiology team are following the pt as well. Objective - Vital Signs Vital signs: Vital Signs Temp 97.5 F L 01/14/19 20:00 Pulse 102 H 01/14/19 20:00 Resp 18 01/14/19 20:00 BP 121/82 01/14/19 20:00 Pulse Ox 95 01/14/19 20:00 Intake & Output 01/14/19 01/14/19 01/15/19 06:59 18:59 06:59 Intake Total 662.24 225 Output Total 750 250 Balance -87.76 225 -250 Weight 89.9 kg Intake: IV 480 225 Heparin Sod,Pork in 0.45% 160 NaCl 25,000 unit In 0.45 % NaCl 1 250ml.bag @ 10 mls/hr IV .Q24H [facility] Rx#: [id number] Sodium Chloride 0.9% 1, 320 000 ml In Empty Bag 1 bag @ 1 ML/KG/HR 90.5 mls/hr IV .Q11H3M [facility] Rx#: [id number] Intake, IV Titration 182.24 0 Amount Heparin Sod,Pork in 0.45% 182.24 0 NaCl 25,000 unit In 0.45 % NaCl 1 250ml.bag @ 10 mls/hr IV .Q24H [facility] Rx#: [id number] Output: Urine 750 250 Other: Voiding Method Toilet Toilet Toilet # Voids 1 - Exam GENERAL: The patient is alert and oriented x3, not in any acute distress. Well developed, well nourished. HEENT: Pupils are round and equally reacting to light. EOMI. No scleral icterus. No conjunctival pallor. Normocephalic, atraumatic. No pharyngeal erythema. No thyromegaly. CARDIOVASCULAR: S1 and S2 present. No murmurs, rubs, or gallops. PULMONARY: Chest is clear to auscultation, no wheezing or crackles. ABDOMEN: Soft, nontender, nondistended, normoactive bowel sounds. No palpable o rganomegaly. MUSCULOSKELETAL: No joint swelling or deformity. EXTREMITIES: No cyanosis, clubbing, or pedal edema. NEUROLOGICAL: Gross neurological examination did not reveal any focal deficits. SKIN: No rashes. - Labs CBC & Chem 7: 01/14/19 06:11 01/14/19 06:11 Labs: Abnormal Lab Results - Last 24 Hours (Table) 01/14/19 01/14/19 01/14/19 Range/Units 06:11 06:11 06:11 Hgb 12.2 L (13.0-17.5) gm/dL Hct 38.4 L (39.0-53.0) % APTT 50.8 H (22.0-30.0) sec BUN 29 H (9-20) mg/dL Glucose 135 H (74-99) mg/dL POC Glucose (mg/dL) (75-99) mg/dL Hemoglobin A1c (4.0-6.0) % Ur Specific [place] (1.001-1.035) Urine Protein (Negative) Urine Glucose (UA) (Negative) 01/14/19 01/14/19 01/14/19 Range/Units 06:11 06:26 15:08 Hgb (13.0-17.5) gm/dL Hct (39.0-53.0) % APTT 31.7 H (22.0-30.0) sec BUN (9-20) mg/dL Glucose (74-99) mg/dL POC Glucose (mg/dL) 140 H (75-99) mg/dL Hemoglobin A1c 6.5 H (4.0-6.0) % Ur Specific [place] (1.001-1.035) Urine Protein (Negative) Urine Glucose (UA) (Negative) 01/14/19 Range/Units 17:09 Hgb (13.0-17.5) gm/dL Hct (39.0-53.0) % APTT (22.0-30.0) sec BUN (9-20) mg/dL Glucose (74-99) mg/dL POC Glucose (mg/dL) (75-99) mg/dL Hemoglobin A1c (4.0-6.0) % Ur Specific [place] 1.048 H (1.001-1.035) Urine Protein Trace H (Negative) Urine Glucose (UA) 1+ H (Negative) Microbiology - Last 24 Hours (Table) 01/14/19 17:09 Urine Culture - Preliminary Urine,Clean Catch 01/14/19 17:08 Nasal Screen MRSA/MSSA - Preliminary Nasal Swab Assessment and Plan Assessment: Coronary artery disease with left main stenosis sever mitral regurgitation Non st elevation ND, on heparin drip acute on chronic diastolic CHF exacerbation Hypertension Hyperlipidemia History of CAD COPD Plan: this is a pleasant 83 M who presents with dyspnea and NSTEMI, found to have sever coronary art disease and sever MR, pt is been evaluated for cardiothoracic surgery ,cardiology consult is appreciated, c/w heparin drip , aspirn , statin and lisinopril and beta-elaine as per cardiology recommendation. Labs and medication were reviewed.. Continue same treatment. Continue with symptomatic treatment. Resume home medication. Monitor lytes and vitals. DVT and GI prophylaxis. Further recommendations of the clinical course of the patient DVT prophylaxis: heparin GI Prophylaxis: Pepcid prognosis is guarded
[2019-01-15 06:20] LABS: Basophils % (A) 0 %; Eosinophils # (A) 0.1 k/uL (0-0.7); Eosinophils % (A) 1 %; HCT 41.1 % (39.0-53.0); Lymphocytes % (A) 18 %; MCH 27.8 pg (25.0-35.0); MCHC 31.6 g/dL (31.0-37.0); MCV 88.1 fL (80.0-100.0); Mean Platelet Volume 7.1; Monocytes # (A) 0.7 k/uL (0-1.0); Monocytes % (A) 6 %; Neutrophils # (A) 8.1 k/uL (1.3-7.7); Neutrophils % (A) 73 %; Platelet Count 231 k/uL (150-450); RBC 4.67 m/uL (4.30-5.90); RDW 15.5 % (11.5-15.5); WBC 11.1 k/uL (3.8-10.6)
--- NOTE | 2019-01-15 08:45 | ECHOT ---
TRANSESOPHAGEAL ECHOCARDIOGRAM DATE OF SERVICE: 01/11/2019 PERFORMING PHYSICIAN: Bladimir Griffin MD, Patient Account Specialist. PROCEDURE PERFORMED: Transesophageal echocardiogram. INDICATION: Evaluation of the severity of mitral regurgitation. COMPLICATION: None. LEVEL OF SEDATION: Moderate with sedation length of 10 minutes. PROCEDURE DESCRIPTION: After obtaining an informed consent, explaining the procedure, benefits, risks, complications and alternatives, the patient was brought to the transesophageal echocardiogram suite. A pulse oximetry and heart rate monitors were attached to the patient prior to the procedure. The patient's throat was sprayed using lidocaine locally. Following that, the patient was turned into left lateral position. A bite guard was placed and the patient was then sedated with the above doses of Versed and fentanyl in divided doses. Following that, the transesophageal echocardiogram probe was advanced through the bite guard into the mid esophagus where 2-D echocardiogram images as well as color Doppler images of various cardiac structures were obtained. We evaluated the interatrial septum using 2-D echocardiogram, color Doppler, and contrast study. The procedure was completed. There were no complications. FINDINGS: The left ventricular dimension appeared to be within normal limits. The left ventricular systolic function appeared to be mildly impaired with EF between 45% to 50%. Right ventricle appeared to be of normal size and function. The left atrium appeared to be mildly dilated. The aortic valve appears to be trileaflet valve without stenosis with and without insufficiency. The mitral valve seems to be mildly thickened with evidence of severe mitral regurgitation. The interatrial septum appeared to be intact. The left atrial appendage appeared to be normal as well. CONCLUSION: 1. Mildly impaired left ventricular function with ejection fraction between 40%-45%. with inferobasal hypokinesia. 2. Intact interatrial septum. 3. Normal left atrial appendage without any evidence of thrombus. 4. Trileaflet aortic valve without stenosis or regurgitation. 5. Mildly thickened mitral valve leaflets with severe mitral regurgitation. 6. Moderate mitral regurgitation seen. 7. Normal pulmonic valve. 8. No evidence of pericardial effusion. MMODL / IJN: [id number] /
[2019-01-15] MEDS ORDERED: FAMOTIDINE 20 MG/2 ML VIAL IV SCH (09:00)
[2019-01-15] MEDS: TAMSULOSIN 0.4 MG CAP.ER.24H PO SCH (09:40)
[2019-01-15] MEDS: NITROGLYCERIN OINT 1 INCH/GM PACKET TOPICAL SCH ×2 (09:40→13:04)
[2019-01-15] MEDS: METOPROLOL TARTRATE 25 MG TAB PO SCH (09:40)
[2019-01-15] MEDS: ASPIRIN 81 MG PO SCH (09:40)
[2019-01-15] MEDS: LISINOPRIL 2.5 MG TAB PO SCH (09:40)
[2019-01-15 10:55] VITALS: RESP 16
[2019-01-15 12:42] VITALS: TEMP 97.1
--- NOTE | 2019-01-15 14:11 | P.CNPUL ---
History of Present Illness Consult date: 01/15/19 Requesting physician: Dru Boykin Reason for consult: dyspnea Chief complaint: Shortness of breath, multivessel coronary artery disease, MR and MV prolaps History of present illness: This is a 83-year-old white male patient of Dr. Emily Dueñas, with past medical history of chronic bronchial asthma, hyperlipidemia, bladder cancer with BCG treatment, history of DVTs following the procedure, not on chronic anticoagulation, enlarged prostate. Patient presented to the emergency department on 01/11/2019 for worsening exertional dyspnea, fatigue, chest tightness. Patient had a non-ST elevated myocardial infarction 8 weeks ago, was started on medical management, he had declined heart catheterization at that time, but did follow up with his treating clinical education consultant Dr. Griffin, and was scheduled for heart cath on 02/08/2019. Did have a recent stress test which revealed a large inferior scar. Echocardiogram revealed a preserved LV function at that time. This past Friday on 01/11/2019 his symptoms of exertional dyspnea became significantly worse, he could hardly walk downstairs to the laundry room which he had previously been able to easily do. EKG on presentation showed normal sinus rhythm with inferior lateral STT wave changes. Chest x-ray showed mild central vascular congestion, bibasilar opacities consistent with small bilateral pleural effusions and associated basilar atelectasis. There was cardiomegaly. Echocardiogram showed mild concentric left ventricular hypertrophy, impaired left ventricular systolic function with an EF between 45 and 50%, moderate to severe mitral regurgitation, mild mitral valve prolapse dominantly posteriorly directed jet. Mild TR no evidence of pulmonary hypertension. JAD was completed on 01/14/2019 and showed EF between 40-45% with inferior basal hypokinesia, intact into the atrial septum, normal left atrial appendage without thrombus, aortic valve was trileaflet without stenosis or regurgitation, mildly thickened mitral valve leaflets with severe mitral regurgitation. he underwent heart catheterization which showed left main disea se of 50%, distal RCA of 99.9%, circumflex of 50% and proximal LAD of 50%. Patient was referred to cardiothoracic surgery for surgical intervention. And we are asked to see the patient in preoperative pulmonary consultation. Review of Systems All systems: negative Constitutional: Denies chills, Denies fever Eyes: denies blurred vision, denies pain Ears, nose, mouth and throat: Denies headache, Denies sore throat Cardiovascular: Reports decreased exercise tolerance, Reports dyspnea on exertion, Denies chest pain, Denies shortness of breath Respiratory: Reports dyspnea, Denies cough Gastrointestinal: Denies abdominal pain, Denies diarrhea, Denies nausea, Denies vomiting Musculoskeletal: Denies myalgias Integumentary: Denies pruritus, Denies rash Neurological: Denies numbness, Denies weakness Psychiatric: Denies anxiety, Denies depression Endocrine: Denies fatigue, Denies weight change Past Medical History Past Medical History: Asthma, Cancer, COPD, Deep Vein Thrombosis (DVT), Hyperlipidemia, Myocardial Infarction (TN) Additional Past Medical History / Comment(s): Ca of bladder, CHF (new dx as of 01/11/2019). DVT (not on anticoags-cleared by the doctor) Last Myocardial Infarction Date:: 11/2018 History of Any Multi-Drug Resistant Organisms: None Reported Past Surgical History: Bladder Surgery, Tonsillectomy Additional Past Surgical History / Comment(s): bladder tumor resection x2. Past Anesthesia/Blood Transfusion Reactions: No Reported Reaction Past Psychological History: No Psychological Hx Reported Smoking Status: Never smoker Past Alcohol Use History: None Reported Past Drug Use History: None Reported - Past Family History Father Family Medical History: Asthma Additional Family Medical History / Comment(s): parkinsons Mother Additional Family Medical History / Comment(s): of old age Brother(s) Additional Family Medical History / Comment(s): heart valve replacement Medications and Allergies Home Medications Medication Instructions Recorded Confirmed Type Artificial Tears-Hypromellose 1 drops BOTH EYES TID PRN 11/01/17 01/11/19 History [Artificial Tear Drops] Budesonide/Formoterol Fumarate 2 puff INHALATION RT-HS 11/01/17 01/11/19 History [Symbicort 160-4.5 Mcg Inhaler] Tamsulosin [Flomax] 0.4 mg PO DAILY 02/24/18 01/11/19 History Anti-Oxidant 1 tab PO DAILY 01/11/19 01/11/19 History Aspirin [[place] Aspirin EC] 81 mg PO DAILY 01/11/19 01/11/19 History Melatonin 5 mg PO HS 01/11/19 01/11/19 History Metoprolol Tartrate 12.5 mg PO BID 01/11/19 01/11/19 History Allergies Allergy/AdvReac Type Severity Reaction Status Date / Time No Known Allergies Allergy Verified 01/11/19 20:47 Physical Exam Vitals: Vital Signs Temp Pulse Resp BP Pulse Ox 01/15/19 08:00 96.5 F L 90 16 114/67 01/15/19 03:43 98 F 101 H 18 121/84 95 01/15/19 00:00 100 18 126/82 96 01/14/19 20:00 97.5 F L 102 H 18 121/82 95 01/14/19 17:07 97 F L 74 16 104/64 01/14/19 16:00 84 14 01/14/19 15:12 84 14 103/67 01/14/19 14:12 88 14 112/65 01/14/19 13:12 97 F L 16 100/60 01/14/19 12:42 97 F L 16 118/55 97 01/14/19 12:12 97 F L 16 121/58 97 01/14/19 11:57 97 F L 16 118/65 96 01/14/19 11:42 97 F L 16 100/59 96 Intake and Output 01/14/19 01/15/19 01/15/19 22:59 06:59 14:59 Intake Total 0 109.5 240 Output Total 250 200 Balance -250 -90.5 240 Intake: Intake, IV Titration 0 109.5 Amount Heparin Sod,Pork in 0.45% 0 109.5 NaCl 25,000 unit In 0.45 % NaCl 1 250ml.bag @ 10 mls/hr IV .Q[facility]H [facility] Rx#: [id number] Oral 240 Output: Urine 250 200 Other: Voiding Method Toilet Toilet # Voids 1 1 1 Weight 89.9 kg GENERAL EXAM: Alert, pleasant, 83-year-old white male with a pulse ox of 95% on room air comfortable in no apparent distress. HEAD: Normocephalic/atraumatic. EYES: Normal reaction of pupils, equal size. Conjunctiva pink, sclera white. NOSE: Clear with pink turbinates. THROAT: No erythema or exudates. NECK: No masses, no JVD, no thyroid enlargement, no adenopathy. CHEST: No chest wall deformity. Symmetrical expansion. LUNGS: Diminished breath sounds, with prolongation of expiratory phase no wheezing, no rhonchi, no rales. CVS: Regular rate and rhythm, normal S1 and S2, no gallops, no murmurs, no rubs ABDOMEN: Soft, nontender. No hepatosplenomegaly, normal bowel sounds, no guarding or rigidity. EXTREMITIES: No clubbing, mild pretibial edema, no cyanosis, 2+ pulses and upper and lower extremities. MUSCULOSKELETAL: Muscle strength and tone normal. SPINE: No scoliosis or deformity SKIN: No rashes CENTRAL NERVOUS SYSTEM: Alert and oriented -3. No focal deficits, tone is normal in all 4 extremities. PSYCHIATRIC: Alert and oriented -3. Appropriate affect. Intact judgment and insight. Results - Laboratory Findings CBC and BMP: 01/15/19 05:43 01/14/19 06:11 PT/INR, D-dimer PT 10.4 sec (9.0-12.0) 01/11/19 19:45 INR 1.0 (<1.2) 01/11/19 19:45 Abnormal lab findings: Abnormal Labs 01/11/19 01/11/19 01/11/19 19:45 19:45 19:45 WBC Hgb 12.6 L Hct MCHC 30.9 L Neutrophils # Lymphocytes # 0.9 L APTT 21.2 L BUN Glucose 182 H POC Glucose (mg/dL) Hemoglobin A1c ALT 80 H Troponin I Ur Specific [place] Urine Protein Urine Glucose (UA) 01/11/19 01/12/19 01/12/19 19:45 03:24 05:43 WBC Hgb 12.5 L Hct MCHC Neutrophils # Lymphocytes # APTT BUN Glucose POC Glucose (mg/dL) Hemoglobin A1c ALT Troponin I 0.047 H* 0.062 H* Ur Specific [place] Urine Protein Urine Glucose (UA) 01/12/19 01/12/19 01/12/19 05:43 05:43 08:58 WBC Hgb Hct MCHC Neutrophils # Lymphocytes # APTT 32.3 H BUN Glucose 142 H POC Glucose (mg/dL) Hemoglobin A1c ALT Troponin I 0.060 H* Ur Specific [place] Urine Protein Urine Glucose (UA) 01/12/19 01/12/19 01/13/19 12:40 20:46 06:03 WBC Hgb 12.9 L Hct MCHC Neutrophils # Lymphocytes # APTT 40.5 H 60.7 H BUN Glucose POC Glucose (mg/dL) Hemoglobin A1c ALT Troponin I Ur Specific [place] Urine Protein Urine Glucose (UA) 01/13/19 01/13/19 01/14/19 06:03 06:03 06:11 WBC Hgb 12.2 L Hct 38.4 L MCHC Neutrophils # Lymphocytes # APTT 54.5 H BUN 25 H Glucose 182 H POC Glucose (mg/dL) Hemoglobin A1c ALT Troponin I Ur Specific [place] Urine Protein Urine Glucose (UA) 01/14/19 01/14/19 01/14/19 06:11 06:11 06:11 WBC Hgb Hct MCHC Neutrophils # Lymphocytes # APTT 50.8 H BUN 29 H Glucose 135 H POC Glucose (mg/dL) Hemoglobin A1c 6.5 H ALT Troponin I Ur Specific [place] Urine Protein Urine Glucose (UA) 01/14/19 01/14/19 01/14/19 06:26 15:08 17:09 WBC Hgb Hct MCHC Neutrophils # Lymphocytes # APTT 31.7 H BUN Glucose POC Glucose (mg/dL) 140 H Hemoglobin A1c ALT Troponin I Ur Specific [place] 1.048 H Urine Protein Trace H Urine Glucose (UA) 1+ H 01/14/19 01/15/19 01/15/19 23:15 05:43 05:43 WBC 11.1 H Hgb Hct MCHC Neutrophils # 8.1 H Lymphocytes # APTT 33.4 H 33.0 H BUN Glucose POC Glucose (mg/dL) Hemoglobin A1c ALT Troponin I Ur Specific [place] Urine Protein Urine Glucose (UA) - Diagnostic Findings Chest x-ray: report reviewed, image reviewed Additional studies: EKG, echocardiogram results, transesophageal echocardiogram, cardiac catheterization, carotid Doppler study results reviewed Assessment and Plan Plan: Assessment: #1. Acute exacerbation of congestive heart failure, with systolic dysfunction, echocardiogram and a transesophageal echocardiogram showed left ventricular systolic function with an EF of 40-45% #2. Recent non-ST elevated TN 8 weeks ago, recent abnormal Lexiscan on an outpatient basis #3. A. fib, new onset, present on admission, currently sinus rhythm #4. Multivessel coronary artery disease, with left main of 50%, distal RCA of 99.9%, circumflex of 50%, proximal LAD of 50% #5. Moderate to severe mitral regurgitation, and mild mitral prolapse #6. History of chronic bronchial asthma, mild intermittent #7. Hypertension, hyperlipidemia #8. Nonsmoker, occasionally smokes cigars only #9. Previous history of DVT, provoked, following bladder cancer and surgery, not on chronic anticoagulation at this time Plan: Bedside PFT was done and patient had 2 attempts, FVC 1 showed 1.21 L or 33% of predicted, and FEV1 was 1.02 L or 39% of predicted, mostly restrictive pulmonary defect, patient did have multiple attempts. He has been diuresed, breathing easier, patient and the family are considering their options, surgical recommendation was made and he was seen by CT surgery. Patient will see Dr. Delacruz in follow-up in the office sometime next week and will have a full PFT in the office. But based on current history, presentation, patient is a moderate surgical risk, related to LV dysfunction and congestive heart failure. From pulmonary perspective today patient is stable, and can be discharged home. I performed a history & physical examination of the patient and discussed their management with my nurse practitioner, Belinda Cardoso. I reviewed the nurse practitioner's note and agree with the documented findings and plan of care. Lung sounds are positive for diminished breath sounds. The findings and the impression was discussed with the patient. I attest to the documentation by the nurse practitioner. Time with Patient: Greater than 30
--- NOTE | 2019-01-15 14:56 | P.PN ---
Subjective Progress Note Date: 01/15/19 Principal diagnosis: Coronary artery disease, severe mitral valve regurgitation, troponin elevation this admission, likely non-STEMI, history of myocardial infarction with syncope approximately 8 weeks ago without medical treatment, history of asthma, history of bladder cancer status post tumor resection and BCG treatment, history of DVT after bladder resection and hyperlipidemia. Patient is sitting up to the bedside chair. He is in no acute distress. He denies any complaints of pain or shortness of breath at this time. He reports that he is been a bleeding the hallway with minimal assistance. His son who is an ER physician is at his bedside. Their questions were answered to the best my ability. He remains afebrile. Laboratory results this morning show a WBC count of 11.1, Hgb 13.0, PTT 33.0. Dr. Davies with the patient and his son this morning. Reviewed the heart catheterization results and JAD findings with the patient and his son. He is recommending myocardial revascularization surgery with a mitral valve repair. Preoperative workup is in progress. Objective - Vital Signs Vital signs: Vital Signs Temp 97.1 F L 01/15/19 12:00 Pulse 110 H 01/15/19 12:00 Resp 16 01/15/19 12:00 BP 98/52 01/15/19 12:00 Pulse Ox 96 01/15/19 13:03 Intake & Output 01/14/19 01/15/19 01/15/19 18:59 06:59 18:59 Intake Total 225 109.5 480 Output Total 450 Balance 225 -340.5 480 Weight 89.9 kg Intake: IV 225 Intake, IV Titration 0 109.5 Amount Heparin Sod,Pork in 0.45% 0 109.5 NaCl 25,000 unit In 0.45 % NaCl 1 250ml.bag @ 10 mls/hr IV .Q24H [facility] Rx#: [id number] Oral 480 Output: Urine 450 Other: Voiding Method Toilet Toilet # Voids 1 1 - Constitutional General appearance: Present: cooperative, no acute distress, obese - Respiratory Details: Lung sounds are essentially clear throughout, diminished was bilateral bases. Respirations are symmetrical and nonlabored. Oxygen saturation are 96% on room air. He is achieving 1500 mL on his incentive spirometry. - Cardiovascular Details: Regular rhythm and rate. S1 and S2 present, negative for S3, gallop or murmur. Remote telemetry showing normal sinus rhythm with occasional PACs heart rate 89. No edema present. - Gastrointestinal Gastrointestinal Comment(s): Abdomen is soft, nontender and nondistended. Active bowel sounds all 4 abdominal quadrants. No guarding or rigidity. No organomegaly. - Genitourinary Genitourinary Comment(s): Voiding clear yellow urine. 450 mL output in the last 8 hours. - Integumentary Integumentary Comment(s): Skin is warm and dry. No clubbing or cyanosis is present. No rash or abnormal pigmentation is present. - Neurologic Neurologic: Present: CNII-XII intact - Musculoskeletal Musculoskeletal: Present: gait normal, strength equal bilaterally - Psychiatric Psychiatric: Present: A&O x's 3, appropriate affect, intact judgment & insight - Allied health notes Allied health notes reviewed: nursing - Labs CBC & Chem 7: 01/15/19 05:43 01/14/19 06:11 Labs: Abnormal Lab Results - Last 24 Hours (Table) 01/14/19 01/14/19 01/14/19 Range/Units 06:11 15:08 17:09 WBC (3.8-10.6) k/uL Neutrophils # (1.3-7.7) k/uL APTT 31.7 H (22.0-30.0) sec Hemoglobin A1c 6.5 H (4.0-6.0) % Ur Specific [place] 1.048 H (1.001-1.035) Urine Protein Trace H (Negative) Urine Glucose (UA) 1+ H (Negative) 01/14/19 01/15/19 01/15/19 Range/Units 23:15 05:43 05:43 WBC 11.1 H (3.8-10.6) k/uL Neutrophils # 8.1 H (1.3-7.7) k/uL APTT 33.4 H 33.0 H (22.0-30.0) sec Hemoglobin A1c (4.0-6.0) % Ur Specific [place] (1.001-1.035) Urine Protein (Negative) Urine Glucose (UA) (Negative) Microbiology - Last 24 Hours (Table) 01/14/19 17:09 Urine Culture - Preliminary Urine,Clean Catch 01/14/19 17:08 Nasal Screen MRSA/MSSA - Preliminary Nasal Swab - Imaging and Cardiology Carotid duplex study report reviewed, lower extremity vein mapping results reviewed. Assessment and Plan Assessment: Coronary artery disease with left main stenosis sever mitral valve regurgitation Non st elevation ME this admission acute on chronic diastolic CHF exacerbation Hypertension Hyperlipidemia History of CAD COPD Plan: 1. Dr. Davies met with the patient and his son today. He discussed the findings on the cardiac catheterization and transesophageal echocardiogram. Risks and benefits of myocardial revascularization surgery with mitral valve repair surgery discussed with the patient the patient was offered surgery on an outpatient basis and a date to follow once all of his preoperative workup and dental clearance has been obtained. 2. 5 m walk test completed time 1:3.21 seconds, time 2: 3.50 seconds, time 3: 4.03 seconds. 3. Continue DVT and GI prophylaxis. 4. Continue reinforce and reinforce preoperative teaching. 5. Obtain dental clearance. 6. Continue to maximize medical status, continue aspirin, statin, beta elaine, Lasix and JENNIFER inhibitor. 7. Medical management per primary care service. 8. STS risk score will be calculated once all of his preoperative testing has been obtained. 9. The patient will undergo a full pulmonary function test at Dr. Ramos's office on 01/19/2018. 10. Encourage use of incentive spirometry every hour while awake. 11. Increase activity as tolerated. Cardiac rehab following. 12. More recommendations to follow based on patient's clinical course. May be discharged home per the cardiothoracic surgery standpoint, and once all of his preoperative testing has been obtained be scheduled for an elective myocardial r evascularization surgery with mitral valve repair. Time with Patient: Greater than 30
--- NOTE | 2019-01-15 15:17 | P.DS ---
Providers Date of admission: 01/15/19 12:20 Expected date of discharge: 01/15/19 Attending physician: Barbra Lopez Consults: 01/11/19 22:34 Consult Physician Routine Consulting Provider: Eduarda Patton Consult Reason/Comments: CHF, elevated troponin Do you want consulting provider notified?: Yes 01/14/19 12:52 Consult Physician Urgent Consulting Provider: Meng Davies Consult Reason/Comments: triple vessel disease, MVR Do you want consulting provider notified?: Already Contacted 01/14/19 15:46 Consult Physician Routine Consulting Provider: Dimitris Ramos Consult Reason/Comments: preop cabg, mitral repair Do you want consulting provider notified?: Yes Primary care physician: Emily Dueñas [facility] Course: 83-year-old very active gentleman who follows on an outpatient basis with Dr. Dueñas in [place]. He has a previous medical history of asthma, hyperlipidemia, bladder cancer with BCG treatment with subsequent DVT not on anticoagulation, enlarged prostate, and never smoker. He has had a two-month history of progressive exertional dyspnea and chest tightness associated with intermittent extreme fatigue following a myocardial infarction with syncope approximately 8 weeks ago. He did not choose to seek medical attention at that time as he attributed his symptoms to asthma, however he did end up following up with Dr. Griffin in the office, he had a stress test which demonstrated an inferior scar, he had an echocardiogram which demonstrated normal LV function with moderate mitral regurgitation. He was recommended to undergo heart catheterization, however the patient preferred medical therapy initially. He continued to have exertional dyspnea and did finally agree to heart catheterization which was scheduled as an outpatient procedure on February 08. Unfortunately he didn't quite make it to that appointment as he came in to [facility] emergency room on January 11 at the request of his family as they noticed he was clearly not feeling well. EKG was completed demonstrating normal sinus rhythm with inferior and lateral ST changes. His initial troponin was 0.04. Chest x-ray was completed demonstrating heart failure with central vascular congestion and small bilateral pleural effusions. BNP was 12,400. He was admitted for evaluation and treatment. IV heparin was initiated as well as IV Lasix, and he has diuresed nicely. On January 12 a transthoracic echocardiogram was completed demonstrating mildly impaired left ventricular systolic function with an ejection fraction 45- 50% with basal inferoseptal, and mid inferoseptal LV wall motion hypokinesis, right atrial and ventricular enlargement, moderate to severe mitral regurgitation with mild mitral prolapse and a posteriorly directed jet, and mild tricuspid regurgitation. His second troponin was 0.06. Of note, there are reports that he had paroxysmal atrial fibrillation in the emergency room, however this was not caught on EKG. He was once again recommended to undergo heart catheterization, and additionally transesophageal echocardiogram. Both of these studies were completed today. The heart catheterization demonstrated left main stenosis 50%, ostial circumflex lesion 50%, proximal LAD with mild to moderate disease, mid RCA 70-80% with distal RCA 99%. Transesophageal echocardiogram confirmed wide open severe mitral regurgitation. Dr. Boykin from cardiothoracic surgery was consulted regarding surgical recommendations. Patient is stabilized and medications that adjusted and recommended discharge and possible surgical intervention in next 1-2 weeks Patient Condition at Discharge: Serious Plan - Discharge Summary Discharge Rx Participant: No New Discharge Prescriptions: New Aspirin 81 mg PO DAILY chew Furosemide [Lasix] 40 mg PO BID@0900,1600 #60 tab Atorvastatin [Lipitor] 80 mg PO HS #30 tab Lisinopril [Zestril] 2.5 mg PO DAILY #30 tab Continue Artificial Tears-Hypromellose [Artificial Tear Drops] 1 drops BOTH EYES TID PRN PRN Reason: Dry Eye(S) Budesonide/Formoterol Fumarate [Symbicort 160-4.5 Mcg Inhaler] 2 puff INHA LATION RT-HS Tamsulosin [Flomax] 0.4 mg PO DAILY Melatonin 5 mg PO HS Metoprolol Tartrate 12.5 mg PO BID Aspirin [[place] Aspirin EC] 81 mg PO DAILY Anti-Oxidant 1 tab PO DAILY Discharge Medication List Artificial Tears-Hypromellose [Artificial Tear Drops] 1 drops BOTH EYES TID PRN 11/01/17 [History] Budesonide/Formoterol Fumarate [Symbicort 160-4.5 Mcg Inhaler] 2 puff INHALATION RT-HS 11/01/17 [History] Tamsulosin [Flomax] 0.4 mg PO DAILY 02/24/18 [History] Anti-Oxidant 1 tab PO DAILY 01/11/19 [History] Aspirin [[place] Aspirin EC] 81 mg PO DAILY 01/11/19 [History] Melatonin 5 mg PO HS 01/11/19 [History] Metoprolol Tartrate 12.5 mg PO BID 01/11/19 [History] Aspirin 81 mg PO DAILY chew 01/15/19 [Rx] Atorvastatin [Lipitor] 80 mg PO HS #30 tab 01/15/19 [Rx] Furosemide [Lasix] 40 mg PO BID@0900,1600 #60 tab 01/15/19 [Rx] Lisinopril [Zestril] 2.5 mg PO DAILY #30 tab 01/15/19 [Rx] Follow up Appointment(s)/Referral(s): Dimitirs Ramos MD [STAFF PHYSICIAN] - 01/19/19 10:30 am Emily Dueñas MD [Primary Care Provider] - 01/20/19 11:30 am (Friday) Patient Instructions/Handouts: Heart Failure (DC), COPD (Chronic Obstructive Pulmonary Disease) (DC) Pending Studies Pending Results: None
[2019-01-15 15:25] VITALS: BP 121/70; PULSE 78
--- NOTE | 2019-01-15 15:41 | P.PN ---
Subjective Progress Note Date: 01/15/19 This is a 83-year-old gentleman who was admitted to the hospital with progressive shortness of breath and evidence of congestive heart failure. Clinically and by echocardiogram, Patient had severe mitral regurgitation. Patient underwent cardiac catheterization and was found to have critical lesions in the right coronary artery, ostium of the circumflex and also moderate disease in the left main. Patient had severe mitral regurgitation by JAD examination. Patient was treated with diuretics, JENNIFER inhibitor with improvement of his symptoms .patient was seen by cardiothoracic surgery and patient is being scheduled for outpatient surgery. Patient is clinically stable and is being discharged home. Follow-up with Dr. Marie Objective - Vital Signs Vital signs: Vital Signs Temp 97.1 F L 01/15/19 15:24 Pulse 78 01/15/19 15:24 Resp 16 01/15/19 15:24 BP 121/70 01/15/19 15:24 Pulse Ox 95 01/15/19 15:24 Intake & Output 01/14/19 01/15/19 01/15/19 18:59 06:59 18:59 Intake Total 225 109.5 480 Output Total 450 Balance 225 -340.5 480 Weight 89.9 kg Intake: IV 225 Intake, IV Titration 0 109.5 Amount Heparin Sod,Pork in 0.45% 0 109.5 NaCl 25,000 unit In 0.45 % NaCl 1 250ml.bag @ 10 mls/hr IV .Q24H [facility] Rx#: [id number] Oral 480 Output: Urine 450 Other: Voiding Method Toilet Toilet # Voids 1 1 - Exam GENERAL EXAM: Patient is alert and oriented and doesn't appear to be in any acute distress HEENT: Normocephalic. Normal reaction of pupils, equal size, normal range of extraocular motion. No erythema or exudates in the throat. NECK: No masses, no nuchal rigidity. CHEST: No chest wall deformity. LUNGS: Equal air entry with no crackles or wheeze. HEART: S1 and S2 normal with no audible mumurs or gallops. Regular rhythm, femorals equal on both sides.. ABDOMEN: No hepatosplenomegaly, normal bowel sounds, no guarding or rigidity. SKIN: No rashes CENTRAL NERVOUS SYSTEM: No focal deficits. EXTREMITIES: Resolving edema - Labs CBC & Chem 7: 01/15/19 05:43 01/14/19 06:11 Labs: Abnormal Lab Results - Last 24 Hours (Table) 01/14/19 01/14/19 01/14/19 Range/Units 06:11 17:09 23:15 WBC (3.8-10.6) k/uL Neutrophils # (1.3-7.7) k/uL APTT 33.4 H (22.0-30.0) sec Hemoglobin A1c 6.5 H (4.0-6.0) % Ur Specific [place] 1.048 H (1.001-1.035) Urine Protein Trace H (Negative) Urine Glucose (UA) 1+ H (Negative) 01/15/19 01/15/19 Range/Units 05:43 05:43 WBC 11.1 H (3.8-10.6) k/uL Neutrophils # 8.1 H (1.3-7.7) k/uL APTT 33.0 H (22.0-30.0) sec Hemoglobin A1c (4.0-6.0) % Ur Specific [place] (1.001-1.035) Urine Protein (Negative) Urine Glucose (UA) (Negative) Microbiology - Last 24 Hours (Table) 01/14/19 17:09 Urine Culture - Preliminary Urine,Clean Catch 01/14/19 17:08 Nasal Screen MRSA/MSSA - Preliminary Nasal Swab Assessment and Plan (1) Acute on chronic combined systolic and diastolic CHF, NYHA class 4 Current Visit: Yes Status: Acute Code(s): I50.43 - ACUTE ON CHRONIC COMBINED SYSTOLIC AND DIASTOLIC HRT FAIL SNOMED Code(s): 268705150265200 (2) Severe mitral regurgitation Current Visit: Yes Status: Acute Code(s): I34.0 - NONRHEUMATIC MITRAL (VALVE) INSUFFICIENCY SNOMED Code(s): 70884554 (3) Coronary artery disease Current Visit: Yes Status: Acute Code(s): I25.10 - ATHSCL HEART DISEASE OF [place] CORONARY ARTERY W/O ANG PCTRS SNOMED Code(s): 76550010 Plan: Patient's critical status is improved. Patient is being discharged home. Follow-up with Dr. Marie. Patient is scheduled to have bypass surgery and mitral valve repair
[2019-01-15] MEDS ORDERED: FUROSEMIDE 40 MG TAB PO SCH (16:00)
[2019-01-15] MEDS ORDERED: FAMOTIDINE 20 MG TAB PO SCH (21:00)
== END 2019-01-15 15:55 | disposition home or self-care (01) | DRG 280 ==
LOC: EC 19:16 → 3SCARD 22:34 → INTOOBSV 22:34 → OBSVTOIN 01-15 12:20
PROVIDERS: ADMIT Hospitalist; ATTEND Hospitalist
PROC: B2111ZZ Fluoroscopy of Multiple Coronary Arteries using Low Osmolar Contrast (ICD-10-PCS; 2019-01-14)
PROC: B24BZZ4 Ultrasonography of Heart with Aorta, Transesophageal (ICD-10-PCS; 2019-01-14)
PROC: 4A023N7 Measurement of Cardiac Sampling and Pressure, Left Heart, Percutaneous Approach (ICD-10-PCS; principal; 2019-01-14 09:00)
DX: I21.4 Non-ST elevation (NSTEMI) myocardial infarction (principal); I50.43 Acute on chronic combined systolic (congestive) and diastolic (congestive) heart failure; J44.1 Chronic obstructive pulmonary disease with (acute) exacerbation; J98.11 Atelectasis; I11.0 Hypertensive heart disease with heart failure; I08.1 Rheumatic disorders of both mitral and tricuspid valves; I48.0 Paroxysmal atrial fibrillation; E78.5 Hyperlipidemia, unspecified; F17.290 Nicotine dependence, other tobacco product, uncomplicated; I25.10 Atherosclerotic heart disease of native coronary artery without angina pectoris; I25.2 Old myocardial infarction; J45.20 Mild intermittent asthma, uncomplicated; Z79.51 Long term (current) use of inhaled steroids; Z79.82 Long term (current) use of aspirin; Z79.899 Other long term (current) drug therapy; Z86.718 Personal history of other venous thrombosis and embolism; Z85.51 Personal history of malignant neoplasm of bladder; Z90.6 Acquired absence of other parts of urinary tract; Z82.0 Family history of epilepsy and other diseases of the nervous system; Z82.5 Family history of asthma and other chronic lower respiratory diseases
CPT/HCPCS: 36415; 71046; 80048; 80053; 80061; 80074; 81003; 83036; 83735; 83880; 84443; 84484; 85025; 85610; 85730; 87070; 87086; 93005; 93306; 93312; 93320; 93325; 93458; 93880; 93970; 94150; 94640; 94760; 96374; 96375; 99291

== ENCOUNTER → 2019-12-08 | Outpatient (CLI) | payer MEDICARE ==
[2019-12-08 08:38] LABS: Basophils % (A) 0 %; Eosinophils # (A) 0.3 k/uL (0-0.7); Eosinophils % (A) 4 %; HCT 37.7 % (39.0-53.0); HGB 12.1 gm/dL (13.0-17.5); Lymphocytes # (A) 1.4 k/uL (1.0-4.8); Lymphocytes % (A) 18 %; MCH 27.7 pg (25.0-35.0); MCHC 32.1 g/dL (31.0-37.0); MCV 86.3 fL (80.0-100.0); Mean Platelet Volume 7.1; Monocytes # (A) 0.5 k/uL (0-1.0); Monocytes % (A) 6 %; Neutrophils # (A) 5.3 k/uL (1.3-7.7); Neutrophils % (A) 70 %; Platelet Count 179 k/uL (150-450); RBC 4.37 m/uL (4.30-5.90); RDW 15.4 % (11.5-15.5); WBC 7.6 k/uL (3.8-10.6)
[2019-12-08 08:47] LABS: Prothrombin Time 19.3 sec (9.0-12.0)
[2019-12-08 09:08] LABS: African American GFR (CKD) 69 (>60 ml/min/1.73 sqM); Anion Gap 9 mmol/L; Blood Urea Nitrogen 23 mg/dL (9-20); Calcium 9.2 mg/dL (8.4-10.2); Carbon Dioxide 24 mmol/L (22-30); Chloride 106 mmol/L (98-107); Glucose 127 mg/dL (74-99); Non-African American GFR(CKD) 60 (>60 ml/min/1.73 sqM); Potassium 4.1 mmol/L (3.5-5.1); Sodium 139 mmol/L (137-145)
== END | disposition home or self-care (01) ==
LOC: LABWHC1 08:15
PROVIDERS: ATTEND Internal Medicine
DX: I48.19 Other persistent atrial fibrillation (principal)
CPT/HCPCS: 36415; 80048; 85025; 85610

== ENCOUNTER 2020-05-13 15:19 | Inpatient (IN) | payer MEDICARE ==
[2020-05-13] MEDS ORDERED: SODIUM CHLORIDE 0.9% 1,000 ML IV STA (15:37)
--- NOTE | 2020-05-13 15:52 | ED ---
General Adult HPI - General Chief complaint: Arrhythmia/Palpitations Stated complaint: high pulse/SOB Time Seen by Provider: 05/13/20 15:30 Source: patient Mode of arrival: ambulatory Limitations: no limitations - History of Present Illness Initial comments: Dictation was produced using [employer] dictation software. please excuse any grammatical, word or spelling errors. This patient was cared for during a federal and state declared state of emerg ency secondary to Covid 19 Chief Complaint: 85 yo male presents with elevated heart rate History of Present Illness: A 85-year-old male. He was told to come to the emergency department for evaluation. Patient is accompanied by family member who reports that last year patient had open-heart surgery performed at [facility]. At the same time he had bypass, valve repair, maze procedure and pacemaker placement. Patient does take Coumadin. For the last several weeks patient has been feeling more fatigued. States that normally he is able to ambulate to the mailbox however as of the last couple weeks patient has been more fatigued more tired and usual month to the mailbox. He does complain of some mild shortness of breath with exertion. He does take Coumadin. He is family member aren't exactly sure why patient is on Coumadin. He denies any pain at this time. No lower leg swelling. Denies any shortness of breath at rest. The ROS documented in this emergency department record has been reviewed and confirmed by me. Those systems with pertinent positive or negative responses have been documented in the HPI. All other systems are other negative and/or n oncontributory. PHYSICAL EXAM: General Impression: Alert and oriented x3, not in acute distress HEENT: Normocephalic atraumatic, extra-ocular movements intact, pupils equal and reactive to light bilaterally, mucous membranes moist. Cardiovascular: Tachycardic Chest: Able to complete full sentences, no retractions, no tachypnea, lungs clear to auscultation bilaterally Abdomen: abdomen soft, non-tender, non-distended, no organomegaly Musculoskeletal: Pulses present and equal in all extremities, no peripheral edema Motor: no focal deficits noted Neurological: CN II-XII grossly intact, no focal motor or sensory deficits noted Skin: Intact with no visualized rashes Psych: Normal affect and mood ED course: 85-year-old male presents with tachycardia, fatigue. He has extensive cardiac history. Signs upon arrival shows heart rate 114, rest of vital signs within acceptable limits. Patient's pacemaker was interrogated. We did receive a faxed report from [facility] showing no significant abnormalities. Laboratory evaluation obtained. No leukocytosis. Hemoglobin 12.1. Rest of CBC is grossly unremarkable. Coag panel shows an L4 0.0. Metabolic panel shows sodium 1:30. Positive anion gap acidosis that is mild. Elevated BUN to creatinine ratio. Clinical presentation suggests some mild dehydration. Patient states that he has not been drinking fluids regularly past several days. Family reports her reports he does have a history of heart failure. Brain natruretic peptide is 18,200. He has history of significantly elevated pediatric peptides. Troponin is 0.025. Chest x-ray shows mild heart failure is slightly worse than all exam. Considering patient's significant comorbidities and mixed picture of mild heart failure exacerbation and dehydration with have patient admitted. Patient given 500 mL bolus of fluids. We will admit patient for gentle hydration. Cardiology will be consulted. Patient reevaluated at bedside and found to be in stable medical condition. EKG interpretation: Ventricular rate 111, paced rhythm,. Interval 118, QRS 174, QTc 557. No evidence of criteria suggesting positive sgarbossa criteria. No old EKG for comparison - Related Data Home Medications Medication Instructions Recorded Confirmed Tamsulosin [Flomax] 0.4 mg PO HS 02/24/18 05/13/20 Aspirin 81 mg PO HS 05/13/20 05/13/20 [place]-3 Acid Ethyl Esters [Lovaza] 1 tab PO QAM 05/13/20 05/13/20 Simvastatin [Zocor] 10 mg PO HS 05/13/20 05/13/20 Spironolactone-Hctz 25-25Mg 1 tab PO QAM 05/13/20 05/13/20 [Aldactazide 25-25 MG] Ubidecarenone [Co Q-10] 100 mg PO HS 05/13/20 05/13/20 Warfarin Sodium [Coumadin] 3 mg PO MOWEFR 05/13/20 05/13/20 Warfarin Sodium [Coumadin] 6 mg PO SUTUTHSA 05/13/20 05/13/20 Allergies Allergy/AdvReac Type Severity Reaction Status Date / Time No Known Allergies Allergy Verified 05/13/20 16:57 Review of Systems ROS Statement: Those systems with pertinent positive or pertinent negative responses have been documented in the HPI. ROS Other: All systems not noted in ROS Statement are negative. Past Medical History Past Medical History: Asthma, Cancer, COPD, Deep Vein Thrombosis (DVT), Hyperlipidemia, Myocardial Infarction ([place]) Additional Past Medical History / Comment(s): Ca of bladder, CHF (new dx as of 01/11/2019). DVT (not on anticoags-cleared by the doctor) Last Myocardial Infarction Date:: 11/2018 History of Any Multi-Drug Resistant Organisms: None Reported Past Surgical History: Bladder Surgery, Coronary Bypass/CABG, Pacemaker, Tonsillectomy Additional Past Surgical History / Comment(s): bladder tumor resection x2. , open heart with mitral and tricuspid repair, bypass and maize procedure Past Anesthesia/Blood Transfusion Reactions: No Reported Reaction Past Psychological History: No Psychological Hx Reported Smoking Status: Never smoker Past Alcohol Use History: None Reported Past Drug Use History: None Reported - Past Family History Father Family Medical History: Asthma Additional Family Medical History / Comment(s): parkinsons Mother Additional Family Medical History / Comment(s): of old age Brother(s) Additional Family Medical History / Comment(s): heart valve replacement General Exam Limitations: no limitations Course Vital Signs 05/13/20 05/13/20 15:23 16:58 Temperature 97.7 F Pulse Rate 114 H 106 H Respiratory 18 18 Rate Blood Pressure 125/81 117/78 O2 Sat by Pulse 98 97 Oximetry Medical Decision Making - Lab Data Result diagrams: 05/13/20 16:03 05/13/20 16:03 Lab Results 05/13/20 05/13/20 05/13/20 Range/Units 16:03 16:03 16:03 WBC 10.1 (3.8-10.6) k/uL RBC 4.17 L (4.30-5.90) m/uL Hgb 12.1 L (13.0-17.5) gm/dL Hct 37.2 L (39.0-53.0) % MCV 89.1 (80.0-100.0) fL MCH 29.1 (25.0-35.0) pg MCHC 32.6 (31.0-37.0) g/dL RDW 16.1 H (11.5-15.5) % Plt Count 259 (150-450) k/uL Neutrophils % 82 % Lymphocytes % 10 % Monocytes % 6 % Eosinophils % 1 % Basophils % 0 % Neutrophils # 8.3 H (1.3-7.7) k/uL Lymphocytes # 1.0 (1.0-4.8) k/uL Monocytes # 0.6 (0-1.0) k/uL Eosinophils # 0.1 (0-0.7) k/uL Basophils # 0.0 (0-0.2) k/uL Hypochromasia Slight Anisocytosis Slight PT 39.6 H (9.0-12.0) sec INR 4.0 H (<1.2) APTT 28.3 (22.0-30.0) sec Sodium 130 L (137-145) mmol/L Potassium 4.3 (3.5-5.1) mmol/L Chloride 98 (98-107) mmol/L Carbon Dioxide 18 L (22-30) mmol/L Anion Gap 14 mmol/L BUN 29 H (9-20) mg/dL Creatinine 1.22 (0.66-1.25) mg/dL Est GFR (CKD-EPI)AfAm 63 (>60 ml/min/1.73 sqM) Est GFR (CKD-EPI)NonAf 54 (>60 ml/min/1.73 sqM) Glucose 274 H (74-99) mg/dL Calcium 9.1 (8.4-10.2) mg/dL Magnesium 2.1 (1.6-2.3) mg/dL Total Bilirubin 2.1 H (0.2-1.3) mg/dL AST 36 (17-59) U/L ALT 34 (4-49) U/L Alkaline Phosphatase 64 (38-126) U/L Troponin I (0.000-0.034) ng/mL NT-Pro-B Natriuret Pep pg/mL Total Protein 6.7 (6.3-8.2) g/dL Albumin 4.2 (3.5-5.0) g/dL TSH 1.990 (0.465-4.680) mIU/L 05/13/20 05/13/20 Range/Units 16:03 16:03 WBC (3.8-10.6) k/uL RBC (4.30-5.90) m/uL Hgb (13.0-17.5) gm/dL Hct (39.0-53.0) % MCV (80.0-100.0) fL MCH (25.0-35.0) pg MCHC (31.0-37.0) g/dL RDW (11.5-15.5) % Plt Count (150-450) k/uL Neutrophils % % Lymphocytes % % Monocytes % % Eosinophils % % Basophils % % Neutrophils # (1.3-7.7) k/uL Lymphocytes # (1.0-4.8) k/uL Monocytes # (0-1.0) k/uL Eosinophils # (0-0.7) k/uL Basophils # (0-0.2) k/uL Hypochromasia Anisocytosis PT (9.0-12.0) sec INR (<1.2) APTT (22.0-30.0) sec Sodium (137-145) mmol/L Potassium (3.5-5.1) mmol/L Chloride (98-107) mmol/L Carbon Dioxide (22-30) mmol/L Anion Gap mmol/L BUN (9-20) mg/dL Creatinine (0.66-1.25) mg/dL Est GFR (CKD-EPI)AfAm (>60 ml/min/1.73 sqM) Est GFR (CKD-EPI)NonAf (>60 ml/min/1.73 sqM) Glucose (74-99) mg/dL Calcium (8.4-10.2) mg/dL Magnesium (1.6-2.3) mg/dL Total Bilirubin (0.2-1.3) mg/dL AST (17-59) U/L ALT (4-49) U/L Alkaline Phosphatase (38-126) U/L Troponin I 0.025 (0.000-0.034) ng/mL NT-Pro-B Natriuret Pep 58110 pg/mL Total Protein (6.3-8.2) g/dL Albumin (3.5-5.0) g/dL TSH (0.465-4.680) mIU/L Disposition Clinical Impression: Dehydration, Heart failure Disposition[facility] Condition: Fair Referrals: Emily Dueñas MD [Primary Care Provider] - 1-2 days Decision Time: 17:14
[2020-05-13 16:09] LABS: Anisocytosis Slight; Basophils % (A) 0 %; Eosinophils # (A) 0.1 k/uL (0-0.7); Eosinophils % (A) 1 %; HCT 37.2 % (39.0-53.0); HGB 12.1 gm/dL (13.0-17.5); Hypochromasia Slight; Lymphocytes % (A) 10 %; MCH 29.1 pg (25.0-35.0); MCHC 32.6 g/dL (31.0-37.0); MCV 89.1 fL (80.0-100.0); Mean Platelet Volume 7.6; Monocytes # (A) 0.6 k/uL (0-1.0); Monocytes % (A) 6 %; Neutrophils # (A) 8.3 k/uL (1.3-7.7); Neutrophils % (A) 82 %; Platelet Count 259 k/uL (150-450); RBC 4.17 m/uL (4.30-5.90); RDW 16.1 % (11.5-15.5); WBC 10.1 k/uL (3.8-10.6)
[2020-05-13 16:18] LABS: Albumin 4.2 g/dL (3.5-5.0); Calcium 9.1 mg/dL (8.4-10.2); Magnesium 2.1 mg/dL (1.6-2.3); Potassium 4.3 mmol/L (3.5-5.1); Total Bilirubin 2.1 mg/dL (0.2-1.3); Total Protein 6.7 g/dL (6.3-8.2)
[2020-05-13 16:35] LABS: Partial Thromboplastin Time 28.3 sec (22.0-30.0); Prothrombin Time 39.6 sec (9.0-12.0)
--- NOTE | 2020-05-13 16:40 | XR ---
EXAMINATION TYPE: XR chest 2V DATE OF EXAM: 05/13/2020 COMPARISON: 01/19/2019 HISTORY: Preop TECHNIQUE: 2 views FINDINGS: There is blunting of the costophrenic angles. There is mild pulmonary congestion. There are sternal wires. There is left axillary pacemaker. There are no hilar masses. IMPRESSION: Small pleural effusions and basilar atelectasis improved slightly compared to old exam. T here is probably mild heart failure that is worse than old exam.
[2020-05-13] MEDS ORDERED: SODIUM CHLORIDE 0.9% 500 ML 500 ML IV STA (16:52)
[2020-05-13] MEDS ORDERED: ATORVASTATIN 10 MG TAB PO SCH (21:00)
[2020-05-13] MEDS: MELATONIN 5 MG TABLET PO SCH (21:41)
[2020-05-13] MEDS: TAMSULOSIN 0.4 MG CAP.ER.24H PO SCH (21:41)
[2020-05-13] MEDS: ASPIRIN 81 MG PO SCH (21:41)
[2020-05-14] MEDS ORDERED: ALPRAZolam 0.25 MG TAB PO PRN (00:20)
[2020-05-14] MEDS ORDERED: ACETAMINOPHEN TAB 500 MG TAB PO PRN (00:20)
[2020-05-14 03:05] LABS: Appearance,Urine Clear (Clear); Bilirubin,Urine Negative (Negative); Blood,Urine Negative (Negative); Color,Urine Yellow; Glucose,Urine (UA) 2+ (Negative); Hyaline Casts,Urine 170 /lpf (0-2); Ketones,Urine Trace (Negative); Leukocyte Esterase,Urine Negative (Negative); Mucus,Urine Occasional /hpf; Nitrite,Urine Negative (Negative); PH, Urine 5.5 (5.0-8.0); Protein,Urine 1+ (Negative); RBC,Urine 1 /hpf (0-5); Specific Gravity,Urine 1.026 (1.001-1.035); Squamous Epithelial Cell,Urine <1 /hpf (0-4); WBC,Urine 1 /hpf (0-5)
[2020-05-14 06:40] LABS: Glucose,Whole Blood 198 mg/dL (75-99)
[2020-05-14] MEDS: FUROSEMIDE 10 MG/ML 4 ML VIAL IV SCH ×2 (07:50→23:52)
[2020-05-14] MEDS: SPIRONOLACTONE-HCTZ 25-25MG 1 EACH TAB PO SCH (07:51)
[2020-05-14] MEDS: PANTOPRAZOLE 40 MG TABLET PO SCH (07:51)
--- NOTE | 2020-05-14 08:10 | HP ---
HISTORY AND PHYSICAL DATE OF SERVICE: 05/13/2020 CHIEF COMPLAINTS: Tachycardia as well as shortness of breath and weakness. HISTORY OF PRESENT ILLNESS: This is an 85-year-old gentleman with a past medical history of multiple medical problems including history of asthma, history of COPD, history of DVT, hyperlipidemia, myocardial infarction, history of CHF, history of CAD, CABG done in . The patient is being followed by Dr. Dueñas in the outpatient setting, not feeling well over the past several days. Patient had significant shortness of breath while walking a short distance. Patient also was found to have elevated heart rate. The family was concerned. The patient was [facility] to [facility]. Patient had MAZE procedure and pacemaker placement because of bradycardia subsequently as well. After admission, the patient was found to have some Coumadin coagulopathy. NT proBNP was elevated to 2000 and troponin 0.25. A chest x-ray which was done after admission was reviewed personally showed some evidence of CHF. The patient was admitted for further evaluation and treatment. There is no history of fever, rigors, chills. No headache, loss of consciousness, seizures. PAST MEDICAL HISTORY: History of asthma, COPD, DVT, hyperlipidemia, [place], cancer of bladder surgery, CAD, CABG, CHF. MEDICATIONS ARE: 1. Coumadin. 2. Flomax. 3. Coenzyme Q. 4. Zocor. 5. Aldactazide. 6. [place]-3 fatty acid. 7. Aspirin. Doses reviewed. ALLERGIES: None. FAMILY HISTORY: History of asthma, Parkinson's. SOCIAL HISTORY: No history of smoking. No history of alcohol. REVIEW OF SYSTEMS: ENT: No history of diminished hearing or vision. CARDIOVASCULAR: As mentioned earlier. RESPIRATORY: As mentioned earlier. GI: No nausea, vomiting, or diarrhea. : No dysuria. NERVOUS: No numbness or weakness. ALLERGY/IMMUNOLOGY: No asthma or hayfever. MUSCULOSKELETAL: As mentioned earlier. HEMATOLOGY/ONCOLOGY: No history of anemia. ENDOCRINE: No history of diabetes or hypothyroidism. SKIN: Negative. CONSTITUTIONAL: As mentioned earlier. RHEUMATOLOGY: As mentioned earlier. PSYCHIATRY: As mentioned earlier. PHYSICAL EXAMINATION: Patient is alert and oriented times three. Pulse 105, bp 113/70, respirations 18, temp 97.2, pulse ox 97% on room air. HEENT: Conjunctivae normal. Oral mucosa moist. NECK: Jugular venous distention elevated. CARDIOVASCULAR: S1, S2, muffled. RESPIRATORY: Diminished breath sounds at the bases. A few scattered rhonchi and crackles in the bases. ABDOMEN: Soft, obese. LEGS: Bilateral leg edema. NERVOUS SYSTEM: Higher functions as mentioned earlier. Moves all four limbs. Mild diffuse weakness. LYMPHATICS: No lymph node in neck or axilla. SKIN: No rash. JOINTS: No active deforming arthropathy. LABS: WBC 10.2, hemoglobin 12.1. INR is 4. Sodium 130, potassium 4.3 and glucose 274. The chest x-ray reviewed with CHF. EKG shows a paced rhythm with wide-complex QRS complexes. ASSESSMENT: 1. Congestive heart failure acute exacerbation with ejection fraction unknown. 2. History of coronary artery disease with coronary artery bypass grafting. 3. History of asthma. 4. History of chronic obstructive pulmonary disease. 5. History of deep vein thrombosis. 6. History of hyperlipidemia. 7. History of myocardial infarction. 8. History of cancer of the bladder. 9. History of deep venous thrombosis, not on anticoagulants. 10.History of bladder surgery. 11.History of pacemaker. 12.History of bladder tumor resection. RECOMMENDATIONS AND DISCUSSION: In this 85-year-old gentleman who presented with multiple complex medical issues, we will monitor the patient closely. Continue the current medications. Resume the home medications. Cautious diuretics. The prognosis is guarded because of multiple complex medical issues. Further recommendations to follow. See orders for further details. A copy of this dictation is being forwarded to Dr. Dueñas who is the primary physician. MMOMIL / ROSSANAN: [id number] / MTDD
[2020-05-14 08:33] LABS: INR 3.6 (<1.2); Prothrombin Time 35.3 sec (9.0-12.0)
[2020-05-14 08:39] LABS: Cholesterol 121 mg/dL (<200); HDL Cholesterol 37 mg/dL (40-60); LDL Cholesterol,Calculated 69 mg/dL (0-99); Triglycerides 74 mg/dL (<150)
[2020-05-14] MEDS: INSULIN ASPART (NovoLOG) 100 UNIT/ML VIAL SQ SCH ×4 (10:34→22:35)
--- NOTE | 2020-05-14 11:23 | P.CRDCN ---
History of Present Illness Consult date: 05/14/20 Reason for Consult (text): Fatigue / Palpitations / S/P 1 vessel CABG with mitral valve repair and maze Chief complaint: Fatigue / Palpitations / S/P 1 vessel CABG with MV repair and maze History of present illness: HISTORY OF PRESENT ILLNESS AND PLAN: This is a 85-year-old male with history of multiple comorbidities including BPH, asthma, COPD, DVT, hyperlipidemia, hypertension, myocardial infarction, CHF, CAD status post 1 vessel CABG with mitral valve repair and maze procedure in 05/04/2019. Patient also had pacemaker placement November 2019. Patient presents to ER with complaints of increasing fatigue and increasing heart rate for the past few days. Patient here with his daughter to help with historical information. Patient states over the past few days he's been having increasing palpitations, increasing pulse rate and increasing fatigue. Unable to walk to the mailbox per his usual activity without shortness of breath. Patient states he has been using his albuterol inhaler at home more often. Patient has no smoking history. 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 Chest x-ray shows small bilateral pleural effusions. Patient is paced on telemetry monitors, heart rate 111. Patient currently getting Lasix IV 40 mg twice daily. Most recent BNP 18,200. Patient had CABG and maze procedure/[facility] [address] Marie locally in office. Patient troponins mildly elevated at 0.025, 0.029. Patient is currently lying in bed in no acute distress. Patient states lower extremity edema is much improved. Has no current complaints of chest pain, chest pressure, shortness of breath or palpitations. Heart rate continues in the 90's. Gentle hydration continues with 0.9 @ 50ml/hr. Coumadin elevated on admission at 4.0, currently 3.6. Will hold Coumadin for this day. Echocardiogram ordered and pending. No smoking history. SIGNIFICANT PAST MEDICAL HISTORY: Multiple comorbidities including BPH, asthma, COPD, DVT, hyperlipidemia, hypertension myocardial infarction, CHF, CAD status post 1 vessel CABG with mitral valve repair and maze procedure in 05/04/2019. Patient also had pacemaker placement November 2019. PAST SURGICAL HISTORY: See list. EKG = Paced rhythm, HR 111 (probably underlying atrial fibrillation) Troponins positive = 0.029, 0.025 trending downward SIGNIFICANT LABORATORY VALUES: Potassium 4.3, BUN 29, CR 1.22. Hemoglobin 12.1 hematocrit 37.2. WBC 10. INR 3.6. Chest x-ray 05/13/2020 = small bilateral pleural effusions, mild CHF. Most recent echo = pending REVIEW OF SYSTEMS: CONSTITUTIONAL: Denies fever. Denies chills. EYES: Denies blurred vision. Denies blurred vision or vision changes. Denies eye pain. EARS, NOSE, MOUTH & THROAT: Denies headache. Denies sore throat. Denies ear pain Denies hemoptysis. CARDIOVASCULAR: Denies chest pain. Complains of shortness of breath. Denies orthopnea. Denies PND. Denies palpitations. RESPIRATORY: Complains of cough. Complains of shortness of breath. GASTROINTESTINAL: Denies abdominal pain or distention. Denies diarrhea. Denies constipation. Denies nausea. Denies vomiting. MUSCULOSKELETAL: Denies myalgias. Complains of increasing fatigue. INTEGUMENTARY: Denies pruitis. Denies rash. ENDOCRINE: Complains of fatigue. Denies weight change. Denies polydipsia. Denies polyurina Denies heat/cold intolerance. GENITOURINARY: Denies burning, hematuria or urgency with micturation. HEMATOLOGIC: Denies history of anemia. Denies bleeding. NEUROLOGIC: Denies numbness. Denies tingling. Complains of weakness. PSYCHIATRIC: Denies anxiety. Denies depression. PHYSICAL EXAM: GENERAL: Well developed, in no acute distress. HEENT: Head is atraumatic, normocephalic. Pupils are equal, round. Extra ocular movements intact. Mucous membranes moist. Neck supple. No JVD. No carotid bruit. No thyromegaly. LUNGS: Diminished bilaterally to auscultation. No wheezes, rales or rhonchi. No chest wall tenderness on palpation or with deep breathing. HEART: Regular rate and rhythm, no rubs or gallops. S1 and S2 heard. No murmur. Slightly tachycardic ABDOMEN: Abdominal exam, WNL. Bowel sounds x4 quads. Soft, non-tender, without masses, organomegaly, or abdominal aorta enlargement. EXTREMITIES/VASCULAR: Extremities have easily palpable radial, femoral, dorsalis pedis and posterior tibial pulses. No cyanosis, calf tenderness. No BLE edema. NEUROLOGIC: Patient is awake, alert and oriented x3. No focal neurologic abnormalities. FINAL IMPRESSION: 1. Congestive heart failure, continue with IV diuresis 2. CAD 3. S/P CABG s/p Mitral Valve repair with maze procedure 4. S/P SSS with pacemaker insertion 5. Shortness of breath, will obtain echocardiogram 6. Fatigue PLAN:Continue with diuresis with IV lasix 40 mg twice daily. START metoprolol tartrate 25 mg twice daily. Increase Lipitor to 20 mg at hour of sleep. HOLD coumadin this day and pharmacy to dose. Repeat CBC/BMP/Mag level/ PT-INR. Awaiting echocardiogram. [facility] diet. Encourage ambulation. Nurse Practitioner note has been reviewed by the Physician. Signing provider agrees with the documented findings, assessment and plan of care. Past Medical History Past Medical History: Asthma, Cancer, COPD, Deep Vein Thrombosis (DVT), Hyper lipidemia, Myocardial Infarction (OK) Additional Past Medical History / Comment(s): Ca of bladder, CHF (new dx as of 01/11/2019). DVT (not on anticoags-cleared by the doctor) Last Myocardial Infarction Date:: 11/2018 History of Any Multi-Drug Resistant Organisms: None Reported Past Surgical History: Bladder Surgery, Coronary Bypass/CABG, Pacemaker, Tonsillectomy Additional Past Surgical History / Comment(s): bladder tumor resection x2. , open heart with mitral and tricuspid repair, bypass and maize procedure Past Anesthesia/Blood Transfusion Reactions: No Reported Reaction Type of Cardiac Device: Permanent Pacemaker Device Placement Date:: 11/14/2019 Past Psychological History: No Psychological Hx Reported Smoking Status: Never smoker Past Alcohol Use History: None Reported Past Drug Use History: None Reported - Past Family History Father Family Medical History: Asthma Additional Family Medical History / Comment(s): parkinsons Mother Additional Family Medical History / Comment(s): of old age Brother(s) Additional Family Medical History / Comment(s): heart valve replacement Medications and Allergies Home Medications Medication Instructions Recorded Confirmed Type Tamsulosin [Flomax] 0.4 mg PO HS 02/24/18 05/13/20 History Aspirin 81 mg PO 05/13/20 05/13/20 History Max-3 Acid Ethyl Esters [Lovaza] 1 tab PO QAM 05/13/20 05/13/20 History Simvastatin [Zocor] 10 mg PO 05/13/20 05/13/20 History Spironolactone-Hctz 25-25Mg 1 tab PO QAM 05/13/20 05/13/20 History [Aldactazide 25-25 MG] Ubidecarenone [Co Q-10] 100 mg PO HS 05/13/20 05/13/20 History Warfarin Sodium [Coumadin] 3 mg PO MOWEFR@1800 05/13/20 05/13/20 History Warfarin Sodium [Coumadin] 6 mg PO SUTUTHSA@1800 05/13/20 05/13/20 History Allergies Allergy/AdvReac Type Severity Reaction Status Date / Time No Known Allergies Allergy Verified 05/13/20 16:57 Physical Exam Vitals: Vital Signs Temp Pulse Pulse Resp BP BP BP 05/14/20 07:42 97.5 F L 114 H 16 117/82 05/14/20 04:00 97.4 F L 118 H 20 119/87 05/14/20 00:00 97.5 F L 105 H 18 109/73 05/13/20 20:00 97.5 F L 105 H 18 113/78 05/13/20 17:30 97.5 F L 120 H 20 127/84 05/13/20 16:58 106 H 18 117/78 05/13/20 15:23 97.7 F 114 H 18 125/81 Pulse Ox 05/14/20 07:42 95 05/14/20 04:00 97 05/14/20 00:00 95 05/13/20 20:00 97 05/13/20 17:30 96 05/13/20 16:58 97 05/13/20 15:23 98 Intake and Output 05/13/20 05/14/20 05/14/20 22:59 06:59 14:59 Other: Voiding Method Toilet Toilet Toilet # Voids 1 1 Weight 85.275 kg 87.1 kg Results 05/13/20 16:03 05/13/20 16:03 Cardiac Enzymes 05/13/20 05/13/20 05/13/20 Range/Units 16:03 16:03 19:12 AST 36 (17-59) U/L Troponin I 0.025 0.025 (0.000-0.034) ng/mL 05/13/20 Range/Units 22:13 AST (17-59) U/L Troponin I 0.029 (0.000-0.034) ng/mL Coagulation 05/13/20 05/14/20 Range/Units 16:03 07:38 PT 39.6 H 35.3 H (9.0-12.0) sec APTT 28.3 (22.0-30.0) sec Lipids 05/14/20 Range/Units 07:38 Triglycerides 74 (<150) mg/dL Cholesterol 121 (<200) mg/dL HDL Cholesterol 37 L (40-60) mg/dL CBC 05/13/20 Range/Units 16:03 WBC 10.1 (3.8-10.6) k/uL RBC 4.17 L (4.30-5.90) m/uL Hgb 12.1 L (13.0-17.5) gm/dL Hct 37.2 L (39.0-53.0) % Plt Count 259 (150-450) k/uL Comprehensive Metabolic Panel 05/13/20 Range/Units 16:03 Sodium 130 L (137-145) mmol/L Potassium 4.3 (3.5-5.1) mmol/L Chloride 98 (98-107) mmol/L Carbon Dioxide 18 L (22-30) mmol/L BUN 29 H (9-20) mg/dL Creatinine 1.22 (0.66-1.25) mg/dL Glucose 274 H (74-99) mg/dL Calcium 9.1 (8.4-10.2) mg/dL AST 36 (17-59) U/L ALT 34 (4-49) U/L Alkaline Phosphatase 64 (38-126) U/L Total Protein 6.7 (6.3-8.2) g/dL Albumin 4.2 (3.5-5.0) g/dL Current Medications Generic Name Dose Route Start Last Admin Trade Name Freq PRN Reason Stop Dose Admin Acetaminophen 500 mg 05/14/20 00:20 Tylenol Tab PO Q6HR PRN Fever and/ or Pain Alprazolam 0.25 mg 05/14/20 00:20 Xanax PO TID PRN Anxiety Aspirin 81 mg 05/13/20 21:00 05/13/20 21:41 Aspirin PO 81 mg HS OSMIN Administration Atorvastatin Calcium 10 mg 05/13/20 21:00 05/13/20 21:41 Lipitor PO 10 mg HS OSMIN Administration Furosemide 40 mg 05/14/20 09:00 05/14/20 07:50 Lasix IV 40 mg Q12HR OSMIN Administration HCTZ/Spironolactone 1 each 05/14/20 09:00 05/14/20 07:51 Aldactazide 25-25mg PO 1 each QAM OSMIN Administration Sodium Chloride 1,000 mls @ 50 mls/hr 05/13/20 15:37 05/13/20 17:05 Saline 0.9% IV 05/14/20 11:36 50 mls/hr .Q20H STA Administration Insulin Aspart 0 unit 05/14/20 07:30 05/14/20 10:34 Novolog SQ 2 unit ACHS OSMIN Administration Protocol Melatonin 5 mg 05/13/20 21:00 05/13/20 21:41 Melatonin PO 5 mg HS OSMIN Administration Pantoprazole Sodium 40 mg 05/14/20 07:30 05/14/20 07:51 Protonix PO 40 mg [id number] OSMIN Administration Tamsulosin HCl 0.4 mg 05/13/20 21:00 05/13/20 21:41 Flomax PO 0.4 mg HS OSMIN Administration Intake and Output 05/13/20 05/14/20 05/14/20 22:59 06:59 14:59 Other: Voiding Method Toilet Toilet Toilet # Voids 1 1 Weight 85.275 kg 87.1 kg 05/13/20 16:03 05/13/20 16:03 EKG Interpretations (text) Paced
[2020-05-14 11:30] LABS: Glucose,Whole Blood 267 mg/dL (75-99)
[2020-05-14] MEDS: METOPROLOL TARTRATE 25 MG TAB PO SCH ×2 (12:39→23:52)
[2020-05-14 16:41] LABS: Glucose,Whole Blood 237 mg/dL (75-99)
[2020-05-14 21:19] LABS: Glucose,Whole Blood 211 mg/dL (75-99)
[2020-05-14] MEDS: MELATONIN 5 MG TABLET PO SCH (22:37)
[2020-05-14] MEDS: ATORVASTATIN 20 MG TAB PO SCH (22:37)
[2020-05-14] MEDS: TAMSULOSIN 0.4 MG CAP.ER.24H PO SCH (22:37)
[2020-05-14] MEDS: ASPIRIN 81 MG PO SCH (22:37)
--- NOTE | 2020-05-15 02:30 | PN ---
PROGRESS NOTE DATE OF SERVICE: 05/14/2020 This 85-year-old gentleman who was admitted with tachycardia, shortness of breath was found to have CHF acute exacerbation. The patient also had a history of CAD, CABG. Cardiology has seen the patient. Chest x-ray was reviewed. Cardiology has recommended to continue with IV diuretics and beta blockers. PAST MEDICAL HISTORY: Reviewed. REVIEW OF SYSTEMS: CARDIOVASCULAR SYSTEM: No angina. RESPIRATORY SYSTEM: As mentioned earlier. GI: As mentioned earlier. : No dysuria. NERVOUS SYSTEM: No numbness or weakness. CURRENT MEDICATIONS: Current medications are reviewed and include: 1. Tylenol p.r.n. 2. Xanax p.r.n. 3. Aspirin. 4. Lipitor. 5. Lasix 40 mg IV b.i.d. 7. Lopressor. 8. Protonix. 9. Flomax. PHYSICAL EXAMINATION: The patient is alert and oriented x3. Pulse is 102, blood pressure is 96/68, respirations 16, temperature 97.5, pulse ox 95% on room air. HEENT: Conjunctivae normal. Oral mucosa normal. NECK: Jugular venous distention. CARDIOVASCULAR: S1, S2 muffled. RESPIRATORY: Breath sounds diminished at the bases. A few scattered rhonchi. ABDOMEN: Soft. LEGS: Minimal leg edema. NERVOUS SYSTEM: No focal deficits. LABS: INR 3.6. Accu-Cheks 267, 237. WBC 10.1, hemoglobin 12.1. Sodium 130. ASSESSMENT: 1. Congestive heart failure acute exacerbation, ejection fraction unknown. 2. History of coronary artery disease, coronary artery bypass grafting. 3. History of asthma. 4. Chronic obstructive pulmonary disease. 5. History of deep vein thrombosis. 6. History of hyperlipidemia. 7. History of myocardial infarction. 8. History of cancer of the bladder. 9. History of deep venous thrombosis, not on anticoagulation. 10.History of bladder surgery. 11.History of pacemaker. 12.History of bladder tumor resection. 13.Coumadin coagulopathy. 14.Hyponatremia. 15.Increased random blood sugar. RECOMMENDATIONS AND DISCUSSION: This 85-year-old gentleman who presented with multiple complex medical issues, will monitor the patient closely, continue the current medications, continue to hold Coumadin and monitor PT, INR. Repeat labs will be ordered. Continue with the diuretics. Stop the IV fluids. Prognosis guarded because of multiple complex medical issues. We will continue to monitor with Cardiology. Two-D echo also will be ordered. Further recommendations to follow. MMODL / IJN: [id number] / JAJA
[2020-05-15 06:26] LABS: Glucose,Whole Blood 148 mg/dL (75-99)
[2020-05-15 06:43] LABS: Basophils % (A) 0 %; Eosinophils # (A) 0.1 k/uL (0-0.7); Eosinophils % (A) 0 %; HCT 38.1 % (39.0-53.0); HGB 12.2 gm/dL (13.0-17.5); Hypochromasia Slight; Lymphocytes # (A) 1.5 k/uL (1.0-4.8); Lymphocytes % (A) 10 %; MCH 28.6 pg (25.0-35.0); MCHC 32.2 g/dL (31.0-37.0); Mean Platelet Volume 7.3; Monocytes # (A) 0.9 k/uL (0-1.0); Monocytes % (A) 6 %; Neutrophils # (A) 12.5 k/uL (1.3-7.7); Neutrophils % (A) 82 %; Platelet Count 299 k/uL (150-450); RBC 4.28 m/uL (4.30-5.90); WBC 15.2 k/uL (3.8-10.6)
[2020-05-15 06:49] LABS: Magnesium 2.1 mg/dL (1.6-2.3); Potassium 3.9 mmol/L (3.5-5.1)
[2020-05-15 06:55] LABS: INR 3.9 (<1.2); Prothrombin Time 38.2 sec (9.0-12.0)
[2020-05-15] MEDS: INSULIN ASPART (NovoLOG) 100 UNIT/ML VIAL SQ SCH ×4 (08:38→22:18)
[2020-05-15] MEDS: SPIRONOLACTONE-HCTZ 25-25MG 1 EACH TAB PO SCH (08:39)
[2020-05-15] MEDS: METOPROLOL TARTRATE 25 MG TAB PO SCH ×2 (08:39→22:17)
[2020-05-15] MEDS: PANTOPRAZOLE 40 MG TABLET PO SCH (08:39)
[2020-05-15 11:57] LABS: Glucose,Whole Blood 153 mg/dL (75-99)
--- NOTE | 2020-05-15 12:24 | PN ---
PROGRESS NOTE Mr. Ceron is an 85-year-old male, status post coronary artery bypass grafting, mitral and tricuspid valve repair done at [facility] by Dr. Dolan who has been followed in the past with Dr. Griffin who presented with symptoms of progressive fatigue and lack of energy. He did not have any associated chest discomfort. He denies any weight gain or peripheral edema. On presentation, his NT proBNP was elevated and he was initiated on IV Lasix. He had a pacemaker implantation as well as ablation for what appears to be paroxysmal atrial fibrillation and has been anticoagulated. He is maintained at this time on aspirin 81 mg daily, metoprolol tartrate 25 mg twice a day, spironolactone, hydrochlorothiazide 25/25, Flomax and he is on Coumadin at home. PHYSICAL EXAMINATION: Blood pressure 115/80 with a heart rate in 90s. LUNGS: No wheezes with decreased air exchange. HEART: Regular rate and rhythm. S1, S2. No S3. No rub appreciated. ABDOMEN: Soft, nontender. EXTREMITIES: No edema. LABS: His EKG on presentation revealed a sinus mechanism with evidence of ventricle pacing and rare PVCs. His lab data revealed an elevation of BUN and creatinine 49 and 1.68, which is higher than his baseline. His hemoglobin 12.2. IMPRESSION: 1. Symptoms of progressive fatigue of unclear etiology. Patient had elevation of NT proBNP on presentation with symptoms of abnormal chest x-ray, although the patient did not have significant peripheral edema at this time and appears to be dehydrated. 2. Status post mitral valve and tricuspid valve repair. 3. Status post coronary artery bypass grafting. 4. Status post permanent pacemaker implantation with sick sinus syndrome per description. 5. Hyperlipidemia. RECOMMENDATION: I will obtain echocardiogram with Doppler. I will hold his diuretic at this time. Follow his renal function, increase his activity and depending on his progress, further recommendation will be made. MMODL / IJN: [id number] /
[2020-05-15] MEDS ORDERED: TEMAZEPAM 7.5 MG CAP PO PRN (13:58)
[2020-05-15 14:19] VITALS: BMI 29.9
[2020-05-15 16:41] LABS: Glucose,Whole Blood 159 mg/dL (75-99)
--- NOTE | 2020-05-15 17:16 | PN ---
PROGRESS NOTE DATE OF SERVICE: 05/15/2020 This 85-year-old gentleman who was admitted with CHF, acute exacerbation, also had CABG. The patient also had renal failure. Creatinine is 1.68. Cardiology is following the patient closely. The patient is being closely monitored at this time. INR is 3.9. The creatinine has worsened today. Past medical history reviewed. REVIEW OF SYSTEMS: CARDIOVASCULAR SYSTEM: No angina, palpitations. Otherwise as mentioned earlier. RESPIRATORY SYSTEM: As mentioned earlier. GI: As mentioned earlier. : No dysuria or retention. NERVOUS SYSTEM: No numbness, weakness. CURRENT MEDICATIONS: Reviewed. They include: 1. Tylenol 500 mg q.6 p.r.n. 2. Xanax 0.25 t.i.d. 3. Aspirin 81 mg. 4. Lipitor 20 mg. 5. Symbicort. 6. Aldactazide 20/25 p.o. each morning. 7. NovoLog. 8. Melatonin. 9. Lopressor. 10.Protonix. 11.Flomax. 12.Restoril. PHYSICAL EXAMINATION: Patient is alert, oriented x3. Pulse is 100, blood pressure 121/83, respirations 16, temperature 97.4. HEENT: Conjunctivae normal. NECK: No jugular venous distention. CARDIOVASCULAR SYSTEM: S1, S2 muffled. RESPIRATORY SYSTEM: Breath sounds diminished at the bases. A few scattered rhonchi and crackles. ABDOMEN: Soft, non-tender. LEGS: No edema. No swelling. NERVOUS SYSTEM: No focal deficit. LABS: Labs at this time show WBC 15.2, hemoglobin 12.2, and INR is 3.9. Sodium 133, creatinine is 1.66. UA noted. ASSESSMENT: 1. Congestive heart failure, acute exacerbation, with ejection fraction unknown. 2. Acute renal failure, possibly prerenal acute tubular necrosis. Rule out cardiorenal syndrome. 3. History of coronary artery disease, coronary artery bypass grafting. 4. History of asthma. 5. Chronic obstructive pulmonary disease. 6. History of deep vein thrombosis. 7. Hyperlipidemia. 8. Coumadin coagulopathy. 9. Coumadin monitoring. 10.History of myocardial infarction. 11.History of cancer of the bladder. 12.History of deep venous thrombosis; not on anticoagulation. 13.History of bladder cancer. 14.History of pacemaker. 15.History of bladder tumor resection. 16.Hyponatremia. 17.Increased random blood sugar. RECOMMENDATIONS AND DISCUSSION: In this 85-year-old gentleman who presented with multiple complex medical issues, we will monitor the patient closely. Creatinine has worsened today. Will hold the diuretics. Repeat labs. Otherwise, I would also hold Aldactazide at this time and hold Coumadin. INR is improving. Otherwise, closely follow with Cardiology. Guarded prognosis because of multiple complex medical issues. Further recommendations to follow. Discussed with the patient and discussed with the family at the bedside. MMOMIL / IJN: [id number] /
[2020-05-15] MEDS: SYMBICORT 160-4.5 MCG INHALER INHALATION SCH (19:28)
[2020-05-15 22:06] LABS: Glucose,Whole Blood 179 mg/dL (75-99)
[2020-05-15] MEDS: ASPIRIN 81 MG PO SCH (22:17)
[2020-05-15] MEDS: TAMSULOSIN 0.4 MG CAP.ER.24H PO SCH (22:17)
[2020-05-15] MEDS: ATORVASTATIN 20 MG TAB PO SCH (22:17)
[2020-05-15] MEDS: MELATONIN 5 MG TABLET PO SCH (22:57)
[2020-05-16 06:52] LABS: Anisocytosis Slight; Basophils % (A) 0 %; Eosinophils # (A) 0.1 k/uL (0-0.7); Eosinophils % (A) 1 %; HCT 37.3 % (39.0-53.0); HGB 12.2 gm/dL (13.0-17.5); Hypochromasia Slight; Lymphocytes # (A) 1.4 k/uL (1.0-4.8); Lymphocytes % (A) 11 %; MCH 28.5 pg (25.0-35.0); MCHC 32.6 g/dL (31.0-37.0); MCV 87.4 fL (80.0-100.0); Mean Platelet Volume 7.5; Monocytes # (A) 0.7 k/uL (0-1.0); Monocytes % (A) 6 %; Neutrophils # (A) 10.4 k/uL (1.3-7.7); Neutrophils % (A) 81 %; Platelet Count 265 k/uL (150-450); RBC 4.27 m/uL (4.30-5.90); RDW 16.2 % (11.5-15.5); WBC 12.9 k/uL (3.8-10.6)
[2020-05-16 07:01] LABS: INR 3.4 (<1.2); Prothrombin Time 33.8 sec (9.0-12.0)
[2020-05-16 07:02] LABS: Calcium 8.8 mg/dL (8.4-10.2); Potassium 3.9 mmol/L (3.5-5.1)
[2020-05-16 07:25] LABS: Glucose,Whole Blood 155 mg/dL (75-99)
[2020-05-16] MEDS: SYMBICORT 160-4.5 MCG INHALER INHALATION SCH ×2 (07:53→20:13)
[2020-05-16] MEDS: PANTOPRAZOLE 40 MG TABLET PO SCH (08:39)
[2020-05-16] MEDS: INSULIN ASPART (NovoLOG) 100 UNIT/ML VIAL SQ SCH ×4 (08:39→22:07)
[2020-05-16] MEDS: METOPROLOL TARTRATE 25 MG TAB PO SCH ×2 (08:39→22:06)
--- NOTE | 2020-05-16 09:34 | PN ---
PROGRESS NOTE Mr. Ceron is an 85-year-old male, status post mitral and tricuspid valve repair, history of coronary artery disease and coronary bypass grafting, history of cardiomyopathy and history of a biventricular pacing, who presented with symptoms of dyspnea and evidence of elevated NT proBNP. He had an echocardiogram yesterday, revealed a severely impaired left ventricular systolic function with normal functioning of his valvular structures. He denies any dizziness or palpitation. He denies any nausea. He continues to be fatigued today. Apparently, he had an episode of renal failure after his surgical intervention. His device was interrogated yesterday and showed normal sensing and pacing. He continued to be on aspirin once a day, Lipitor 20 mg daily and metoprolol tartrate 25 mg twice a day in addition to Flomax. PHYSICAL EXAMINATION: Blood pressure 120/80 with a heart rate in the 90s. LUNGS: Clear. HEART: S1-S2 with a systolic murmur, no diastolic murmur, no rub. ABDOMEN: Soft, nontender. EXTREMITIES: No edema. LAB DATA: Revealed an INR of 3.4, BUN and creatinine 69 and 1.81. His hemoglobin is 12.2. IMPRESSION: 1. Symptoms of congestive heart failure with a severely impaired left ventricular systolic function. 2. Status post mitral and tricuspid valve repair, appears to be stable on the echocardiogram. 3. Cardiomyopathy, worsened compared to the prior testing. 4. Status post coronary artery bypass grafting. 5. Status post biventricular pacing with normal function. 6. Paroxysmal atrial fibrillation. 7. Status post MAZE procedure. 8. Worsening renal failure. RECOMMENDATION: At this time, will continue on the beta elaine, continue holding his diuretics as well as his anticoagulation. Follow his renal function, increase his activity and depending on his progress, further recommendation will be made. MMODL / IJN: [id number] /
[2020-05-16 11:43] LABS: Glucose,Whole Blood 195 mg/dL (75-99)
[2020-05-16] MEDS ORDERED: QUEtiapine 25 MG TAB PO PRN (13:30)
--- NOTE | 2020-05-16 15:39 | P.PN ---
Subjective 85-year-old the marjorie male admitted for heart failure exacerbation patient is presently will be with the patient went into renal failure because of that reason patient did Lasix is being held at this time. Patient's creatinine is 1.8 we'll repeat the basic metabolic profile tomorrow again his baseline appears to be around 1. Patient also has history of atrial fibrillation and had a maze procedure in the past ration is off Coumadin INR is around 3.4the patient is complaining of some tiredness and fatigue Constitutional: Denied any denied any fever. Cardio vascular: denied any chest pain, palpitations Gastrointestinal denied any nausea vomiting Pulmonary: Denied any shortness of breath cough Neurologic denied any new focal deficits All inpatient medications were reviewed and appropriate changes in these medications as dictated in the interval history and assessment and plan. Objective - Vital Signs Vital signs: Vital Signs Temp 97.7 F 05/16/20 04:00 Pulse 88 05/16/20 12:05 Resp 16 05/16/20 12:05 BP 108/74 05/16/20 12:05 Pulse Ox 98 05/16/20 12:05 Intake & Output 05/15/20 05/16/20 05/16/20 18:59 06:59 18:59 Intake Total 820 440 Balance 820 440 Weight 86.6 kg 86.8 kg Intake: Oral 420 240 Other 400 200 Other: Voiding Method Toilet Toilet # Voids 2 - Exam PHYSICAL EXAMINATION: GENERAL: The patient is alert and oriented x3, not in any acute distress. Well developed, well nourished. HEENT: Pupils are round and equally reacting to light. EOMI. No scleral icterus. No conjunctival pallor. Normocephalic, atraumatic. No pharyngeal erythema. No thyromegaly. CARDIOVASCULAR: S1 and S2 present. No murmurs, rubs, or gallops. PULMONARY: Chest is clear to auscultation, no wheezing or crackles. ABDOMEN: Soft, nontender, nondistended, normoactive bowel sounds. No palpable organomegaly. MUSCULOSKELETAL: No joint swelling or deformity. EXTREMITIES: No cyanosis, clubbing, or pedal edema. NEUROLOGICAL: Gross neurological examination did not reveal any focal deficits. SKIN: No rashes. - Labs CBC & Chem 7: 05/16/20 06:35 05/16/20 06:35 Labs: Abnormal Lab Results - Last 24 Hours (Table) 05/15/20 05/15/20 05/16/20 Range/Units 16:39 22:05 06:35 WBC (3.8-10.6) k/uL RBC (4.30-5.90) m/uL Hgb (13.0-17.5) gm/dL Hct (39.0-53.0) % RDW (11.5-15.5) % Neutrophils # (1.3-7.7) k/uL PT 33.8 H (9.0-12.0) sec INR 3.4 H (<1.2) Sodium (137-145) mmol/L Chloride (98-107) mmol/L Carbon Dioxide (22-30) mmol/L BUN (9-20) mg/dL Creatinine (0.66-1.25) mg/dL Glucose (74-99) mg/dL POC Glucose (mg/dL) 159 H 179 H (75-99) mg/dL 05/16/20 05/16/20 05/16/20 Range/Units 06:35 06:35 07:21 WBC 12.9 H (3.8-10.6) k/uL RBC 4.27 L (4.30-5.90) m/uL Hgb 12.2 L (13.0-17.5) gm/dL Hct 37.3 L (39.0-53.0) % RDW 16.2 H (11.5-15.5) % Neutrophils # 10.4 H (1.3-7.7) k/uL PT (9.0-12.0) sec INR (<1.2) Sodium 131 L (137-145) mmol/L Chloride 97 L (98-107) mmol/L Carbon Dioxide 20 L (22-30) mmol/L BUN 69 H (9-20) mg/dL Creatinine 1.81 H (0.66-1.25) mg/dL Glucose 143 H (74-99) mg/dL POC Glucose (mg/dL) 155 H (75-99) mg/dL 05/16/20 Range/Units 11:42 WBC (3.8-10.6) k/uL RBC (4.30-5.90) m/uL Hgb (13.0-17.5) gm/dL Hct (39.0-53.0) % RDW (11.5-15.5) % Neutrophils # (1.3-7.7) k/uL PT (9.0-12.0) sec INR (<1.2) Sodium (137-145) mmol/L Chloride (98-107) mmol/L Carbon Dioxide (22-30) mmol/L BUN (9-20) mg/dL Creatinine (0.66-1.25) mg/dL Glucose (74-99) mg/dL POC Glucose (mg/dL) 195 H (75-99) mg/dL Assessment and Plan Plan: -acute renal failure: Secondary to excessive diuresis and diuretics are being held at this time congestive heart failure chronic systolic dysfunction patient had an EF of around the 45% patient is hyper limits at this time holding of diuresis --valvular heart disease with Amberly atrial fibrillation: Patient is on Coumadin so further can INR: Is being held patient has proximal A. fib -Delirium secondary to hospitalization: We will start him on Seroquel on as- needed basis. Patient has prolonged QT but patient or the has an AICD -COPD without any acute exacerbation at 10-hyperlipidemia
[2020-05-16 16:57] LABS: Glucose,Whole Blood 212 mg/dL (75-99)
[2020-05-16 21:34] LABS: Glucose,Whole Blood 171 mg/dL (75-99)
[2020-05-16] MEDS: ASPIRIN 81 MG PO SCH (22:06)
[2020-05-16] MEDS: MELATONIN 5 MG TABLET PO SCH (22:06)
[2020-05-16] MEDS: ATORVASTATIN 20 MG TAB PO SCH (22:07)
[2020-05-16] MEDS: TAMSULOSIN 0.4 MG CAP.ER.24H PO SCH (22:07)
[2020-05-17] MEDS ORDERED: IPRATROPIUM-ALBUTEROL 3 ML NEB INHALATION PRN (00:39)
[2020-05-17 01:59] LABS: Appearance,Urine Clear (Clear); Bilirubin,Urine Negative (Negative); Blood,Urine Small (Negative); Color,Urine Yellow; Glucose,Urine (UA) Negative (Negative); Hyaline Casts,Urine 51 /lpf (0-2); Ketones,Urine Trace (Negative); Leukocyte Esterase,Urine Negative (Negative); Mucus,Urine Rare /hpf; Nitrite,Urine Negative (Negative); PH, Urine 5.5 (5.0-8.0); Protein,Urine 1+ (Negative); RBC,Urine 1 /hpf (0-5); Specific Gravity,Urine 1.021 (1.001-1.035); WBC,Urine 1 /hpf (0-5)
[2020-05-17 06:32] LABS: Anisocytosis Slight; Basophils % (A) 0 %; Eosinophils # (A) 0.1 k/uL (0-0.7); Eosinophils % (A) 1 %; HCT 37.2 % (39.0-53.0); HGB 11.6 gm/dL (13.0-17.5); Lymphocytes # (A) 1.1 k/uL (1.0-4.8); Lymphocytes % (A) 8 %; MCH 27.2 pg (25.0-35.0); MCHC 31.3 g/dL (31.0-37.0); MCV 87.1 fL (80.0-100.0); Mean Platelet Volume 7.6; Monocytes # (A) 0.8 k/uL (0-1.0); Monocytes % (A) 6 %; Neutrophils # (A) 12.2 k/uL (1.3-7.7); Neutrophils % (A) 84 %; Platelet Count 228 k/uL (150-450); RBC 4.28 m/uL (4.30-5.90); RDW 16.3 % (11.5-15.5); WBC 14.5 k/uL (3.8-10.6)
[2020-05-17 06:45] LABS: Calcium 8.5 mg/dL (8.4-10.2)
[2020-05-17 07:01] LABS: Glucose,Whole Blood 147 mg/dL (75-99)
[2020-05-17 07:05] LABS: INR 3.6 (<1.2); Prothrombin Time 35.6 sec (9.0-12.0)
[2020-05-17] MEDS: PANTOPRAZOLE 40 MG TABLET PO SCH (07:40)
[2020-05-17] MEDS: METOPROLOL TARTRATE 25 MG TAB PO SCH ×2 (07:40→21:36)
[2020-05-17] MEDS: INSULIN ASPART (NovoLOG) 100 UNIT/ML VIAL SQ SCH ×4 (07:40→21:37)
[2020-05-17] MEDS: SYMBICORT 160-4.5 MCG INHALER INHALATION SCH ×2 (07:54→20:06)
[2020-05-17] MEDS ORDERED: SENNOSIDES 8.6 MG TAB PO PRN ×2 (12:20→16:36)
[2020-05-17 12:24] LABS: Glucose,Whole Blood 202 mg/dL (75-99)
--- NOTE | 2020-05-17 13:10 | P.PN ---
Subjective 85-year-old the marjorie male admitted for heart failure exacerbation patient is presently will be with the patient went into renal failure because of that reason patient did Lasix is being held at this time. Patient's creatinine is 1.8 we'll repeat the basic metabolic profile tomorrow again his baseline appears to be around 1. Patient also has history of atrial fibrillation and had a maze procedure in the past ration is off Coumadin INR is around 3.4the patient is complaining of some tiredness and fatigue. 05/17/2020 Patient had another remains high serum creatinine remains high, was called last night as patient was wheezing patient was started on the inhalation treatments after which his wheezing improved patient doesn't have any JVD today no wheezing today. We'll continue with present medications management and monitor his serum creatinine and INR Constitutional: Denied any denied any fever. Cardio vascular: denied any chest pain, palpitations Gastrointestinal denied any nausea vomiting Pulmonary: Denied any shortness of breath cough Neurologic denied any new focal deficits All inpatient medications were reviewed and appropriate changes in these medications as dictated in the interval history and assessment and plan. Objective - Vital Signs Vital signs: Vital Signs Temp 94.3 F L 05/17/20 04:00 Pulse 96 05/17/20 08:00 Resp 18 05/17/20 08:00 BP 106/71 05/17/20 08:00 Pulse Ox 100 05/17/20 08:00 Intake & Output 05/16/20 05/17/20 05/17/20 18:59 06:59 18:59 Intake Total 1280 Balance 1280 Weight 87.2 kg Intake: Oral 480 Other 800 Other: Voiding Method Toilet Toilet # Voids 2 1 - Exam PHYSICAL EXAMINATION: GENERAL: The patient is alert and oriented x3, not in any acute distress. Well developed, well nourished. HEENT: Pupils are round and equally reacting to light. EOMI. No scleral icterus. No conjunctival pallor. Normocephalic, atraumatic. No pharyngeal erythema. No thyromegaly. CARDIOVASCULAR: S1 and S2 present. No murmurs, rubs, or gallops. PULMONARY: Chest is clear to auscultation, no wheezing or crackles. ABDOMEN: Soft, nontender, nondistended, normoactive bowel sounds. No palpable organomegaly. MUSCULOSKELETAL: No joint swelling or deformity. EXTREMITIES: No cyanosis, clubbing, or pedal edema. NEUROLOGICAL: Gross neurological examination did not reveal any focal deficits. SKIN: No rashes. - Labs CBC & Chem 7: 05/17/20 06:17 05/17/20 06:17 Labs: Abnormal Lab Results - Last 24 Hours (Table) 05/16/20 05/16/20 05/17/20 Range/Units 16:55 21:32 01:27 WBC (3.8-10.6) k/uL RBC (4.30-5.90) m/uL Hgb (13.0-17.5) gm/dL Hct (39.0-53.0) % RDW (11.5-15.5) % Neutrophils # (1.3-7.7) k/uL PT (9.0-12.0) sec INR (<1.2) Sodium (137-145) mmol/L Chloride (98-107) mmol/L Carbon Dioxide (22-30) mmol/L BUN (9-20) mg/dL Creatinine (0.66-1.25) mg/dL Glucose (74-99) mg/dL POC Glucose (mg/dL) 212 H 171 H (75-99) mg/dL Urine Protein 1+ H (Negative) Urine Ketones Trace H (Negative) Urine Blood Small H (Negative) Hyaline Casts 51 H (0-2) /lpf Urine Mucus Rare H (None) /hpf 05/17/20 05/17/20 05/17/20 Range/Units 06:17 06:17 06:17 WBC 14.5 H (3.8-10.6) k/uL RBC 4.28 L (4.30-5.90) m/uL Hgb 11.6 L (13.0-17.5) gm/dL Hct 37.2 L (39.0-53.0) % RDW 16.3 H (11.5-15.5) % Neutrophils # 12.2 H (1.3-7.7) k/uL PT 35.6 H (9.0-12.0) sec INR 3.6 H (<1.2) Sodium 127 L (137-145) mmol/L Chloride 93 L (98-107) mmol/L Carbon Dioxide 15 L (22-30) mmol/L BUN 79 H (9-20) mg/dL Creatinine 1.85 H (0.66-1.25) mg/dL Glucose 136 H (74-99) mg/dL POC Glucose (mg/dL) (75-99) mg/dL Urine Protein (Negative) Urine Ketones (Negative) Urine Blood (Negative) Hyaline Casts (0-2) /lpf Urine Mucus (None) /hpf 05/17/20 05/17/20 Range/Units 07:00 12:23 WBC (3.8-10.6) k/uL RBC (4.30-5.90) m/uL Hgb (13.0-17.5) gm/dL Hct (39.0-53.0) % RDW (11.5-15.5) % Neutrophils # (1.3-7.7) k/uL PT (9.0-12.0) sec INR (<1.2) Sodium (137-145) mmol/L Chloride (98-107) mmol/L Carbon Dioxide (22-30) mmol/L BUN (9-20) mg/dL Creatinine (0.66-1.25) mg/dL Glucose (74-99) mg/dL POC Glucose (mg/dL) 147 H 202 H (75-99) mg/dL Urine Protein (Negative) Urine Ketones (Negative) Urine Blood (Negative) Hyaline Casts (0-2) /lpf Urine Mucus (None) /hpf Assessment and Plan Plan: -acute renal failure: Secondary to excessive diuresis and diuretics are being held at this time . Creatinine did get worse but remains stable and high congestive heart failure chronic systolic dysfunction patient had an EF of around the 45% patient is hyper limits at this time holding of diuresis --valvular heart disease with valvular atrial fibrillation: Patient is on Coumadin so further can INR: Is being held patient has proximal A. fib -Delirium secondary to hospitalization: We will start him on Seroquel on as- needed basis. Patient has prolonged QT but patient or the has an AICD -COPD without any acute exacerbation -hyperlipidemia
--- NOTE | 2020-05-17 13:11 | P.PN ---
Subjective This is a pleasant 85-year-old male past medical history significant for mitral and tricuspid valve repair, coronary artery disease s/p bypass grafting, cardiomyopathy, BiV pacemaker, dyslipidemia, hypertension and paroxysmal atrial fibrillation on coumadin for anti-coagulation. He is seen and examined sitting up in bed eating breakfast in no acute distress. He states overall he is feeling better since admission. He actively has no chest pain, shortness of breath, dizziness or palpitations. Blood pressure 106/71 heart rate 70 afebrile maintaining oxygen saturation on room air. Laboratory data reviewed, WBC 14.5, hemoglobin 11.6, platelets 228, INR 3.6, sodium 127, potassium 4.0, creatinine 1.85. Coumadin continues to be on hold. Currently maintained on Lopressor 25 mg twice a day, atorvastatin 20 mg at bedtime and aspirin 81 mg daily. GENERAL: Well-appearing, well-nourished and in no acute distress. NECK: Supple without JVD or thyromegaly. LUNGS: Breath sounds clear to auscultation bilaterally. Respiration equal and unlabored. No wheezes, rales or rhonchi. HEART: Regular rate and rhythm with systolic ejection murmur at the left sternal border, no rubs or gallops. S1 and S2 heard. EXTREMITIES: Normal range of motion, no edema. No clubbing or cyanosis. Peripheral pulses intact. ASSESSMENT Acute on chronic systolic heart failure Hyponatremia Supratherapeutic INR Acute kidney injury Coronary artery disease status post bypass grafting Valvular heart disease status post mitral and tricuspid valve repair Ischemic cardiomyopathy Paroxysmal atrial fibrillation PLAN Continue to hold coumadin and follow PT/INR daily. Repeat BMP in the morning. Further recommendations to follow based on clinical course. Nurse Practitioner note has been reviewed, I agree with a documented findings and plan of care. Patient was seen and examined. Objective - Vital Signs Vital signs: Vital Signs Temp 94.3 F L 05/17/20 04:00 Pulse 96 05/17/20 08:00 Resp 18 05/17/20 08:00 BP 106/71 05/17/20 08:00 Pulse Ox 100 05/17/20 08:00 Intake & Output 05/16/20 05/17/20 05/17/20 18:59 06:59 18:59 Intake Total 1280 Balance 1280 Weight 87.2 kg Intake: Oral 480 Other 800 Other: Voiding Method Toilet Toilet # Voids 2 1 - Labs CBC & Chem 7: 05/17/20 06:17 05/17/20 06:17 Labs: Abnormal Lab Results - Last 24 Hours (Table) 05/16/20 05/16/20 05/17/20 Range/Units 16:55 21:32 01:27 WBC (3.8-10.6) k/uL RBC (4.30-5.90) m/uL Hgb (13.0-17.5) gm/dL Hct (39.0-53.0) % RDW (11.5-15.5) % Neutrophils # (1.3-7.7) k/uL PT (9.0-12.0) sec INR (<1.2) Sodium (137-145) mmol/L Chloride (98-107) mmol/L Carbon Dioxide (22-30) mmol/L BUN (9-20) mg/dL Creatinine (0.66-1.25) mg/dL Glucose (74-99) mg/dL POC Glucose (mg/dL) 212 H 171 H (75-99) mg/dL Urine Protein 1+ H (Negative) Urine Ketones Trace H (Negative) Urine Blood Small H (Negative) Hyaline Casts 51 H (0-2) /lpf Urine Mucus Rare H (None) /hpf 05/17/20 05/17/20 05/17/20 Range/Units 06:17 06:17 06:17 WBC 14.5 H (3.8-10.6) k/uL RBC 4.28 L (4.30-5.90) m/uL Hgb 11.6 L (13.0-17.5) gm/dL Hct 37.2 L (39.0-53.0) % RDW 16.3 H (11.5-15.5) % Neutrophils # 12.2 H (1.3-7.7) k/uL PT 35.6 H (9.0-12.0) sec INR 3.6 H (<1.2) Sodium 127 L (137-145) mmol/L Chloride 93 L (98-107) mmol/L Carbon Dioxide 15 L (22-30) mmol/L BUN 79 H (9-20) mg/dL Creatinine 1.85 H (0.66-1.25) mg/dL Glucose 136 H (74-99) mg/dL POC Glucose (mg/dL) (75-99) mg/dL Urine Protein (Negative) Urine Ketones (Negative) Urine Blood (Negative) Hyaline Casts (0-2) /lpf Urine Mucus (None) /hpf 05/17/20 05/17/20 Range/Units 07:00 12:23 WBC (3.8-10.6) k/uL RBC (4.30-5.90) m/uL Hgb (13.0-17.5) gm/dL Hct (39.0-53.0) % RDW (11.5-15.5) % Neutrophils # (1.3-7.7) k/uL PT (9.0-12.0) sec INR (<1.2) Sodium (137-145) mmol/L Chloride (98-107) mmol/L Carbon Dioxide (22-30) mmol/L BUN (9-20) mg/dL Creatinine (0.66-1.25) mg/dL Glucose (74-99) mg/dL POC Glucose (mg/dL) 147 H 202 H (75-99) mg/dL Urine Protein (Negative) Urine Ketones (Negative) Urine Blood (Negative) Hyaline Casts (0-2) /lpf Urine Mucus (None) /hpf
--- NOTE | 2020-05-17 16:01 | ECHOF ---
Referral Reason:chf MEASUREMENTS -------- HEIGHT: 170.2 cm WEIGHT: 81.6 kg BP: RVIDd: 4.0 cm (< 3.3) IVSd: 1.2 cm (0.6 - 1.1) LVIDd: 5.0 cm (3.9 - 5.3) LVPWd: 1.0 cm (0.6 - 1.1) IVSs: 1.4 cm LVIDs: 4.5 cm LVPWs: 1.6 cm LA Diam: 5.5 cm (2.7 - 3.8) LAESV Index (A-L): 42.31 ml/m Ao Diam: 4.0 cm (2.0 - 3.7) AV Cusp: 2.1 cm (1.5 - 2.6) LA Diam: 4.3 cm (2.7 - 3.8) MV EXCURSION: 19.371 mm (> 18.000) MV EF SLOPE: 95 mm/s (70 - 150) EPSS: 1.9 cm MV E Jax: 1.22 m/s MV DecT: 192 ms MV A Jax: 0.15 m/s MV E/A Ratio: 34.34 RAP: 5.00 mmHg RVSP: 32.74 mmHg FINDINGS -------- Sinus rhythm. Pacerwire seen in RV and RA. This was a techncally difficult study with suboptimal views, , Lumason utilized for enhancement of im ages. There is mild concentric left ventricular hypertrophy. Overall left ventricular systolic function i s severely impaired with, an EF < 20%. The right ventricle is normal in size. LA is severely dilated >40 ml/m2 The right atrial size is normal. 5.0mg OF Lumason UTLIZED: 2 OR MORE WALL SEGMENTS NOT VISUALIZED. There is mild aortic valve sclerosis. There is no evidence of aortic regurgitation. The peak and mean MV gradients are 12.97mmHg 3.16mmHg as measured by doppler. Mitral ring annullopl asty is in place. Mild tricuspid regurgitation present. Right ventricular systolic pressure is normal at < 35 mmHg. TV annuloplasty The pulmonic valve was not well visualized. Trace/mild (physiologic) pulmonic regurgitation. The aortic root size is normal. There is no pericardial effusion. CONCLUSIONS -------- 1. Sinus rhythm. 2. Pacerwire seen in RV and RA. 3. This was a techncally difficult study with suboptimal views, , Lumason utilized for enhancement of images. 4. There is mild concentric left ventricular hypertrophy. 5. Overall left ventricular systolic function is severely impaired with, an EF < 20%. 6. LA is severely dilated >40 ml/m2 7. 5.0mg OF Lumason UTLIZED: 2 OR MORE WALL SEGMENTS NOT VISUALIZED. 8. There is mild aortic valve sclerosis. 9. The peak and mean MV gradients are 12.97mmHg 3.16mmHg as measured by doppler. 10. Mitral ring annulloplasty is in place. 11. Mild tricuspid regurgitation present. 12. Trace/mild (physiologic) pulmonic regurgitation. 13. There is no pericardial effusion. MEDICAL SCHEDULER: Angelina Crockett RDCS
--- NOTE | 2020-05-17 16:49 | XR ---
EXAMINATION TYPE: XR chest 2V DATE OF EXAM: 05/17/2020 COMPARISON: 05/13/2020 HISTORY: Short of breath TECHNIQUE: FINDINGS: There is slight blunting of the costophrenic angles. There is no gross heart failure. There is left axillary pacemaker. There are chest leads. There is some mild linear density at the lung bas es. IMPRESSION: There is some pleural reaction and atelectasis at the lung bases improved compared to las t exam. There is improved inspiration. There is improvement in the mild pulmonary congestion.
[2020-05-17 17:03] LABS: Glucose,Whole Blood 283 mg/dL (75-99)
[2020-05-17] MEDS: IPRATROPIUM-ALBUTEROL 3 ML NEB INHALATION SCH ×2 (19:10→20:06)
[2020-05-17 20:41] LABS: Glucose,Whole Blood 262 mg/dL (75-99)
[2020-05-17] MEDS: TAMSULOSIN 0.4 MG CAP.ER.24H PO SCH (21:36)
[2020-05-17] MEDS: MELATONIN 5 MG TABLET PO SCH (21:36)
[2020-05-17] MEDS: ASPIRIN 81 MG PO SCH (21:36)
[2020-05-17] MEDS: ATORVASTATIN 20 MG TAB PO SCH (21:36)
[2020-05-18] MEDS: IPRATROPIUM-ALBUTEROL 3 ML NEB INHALATION SCH ×3 (04:55→12:16)
[2020-05-18 06:35] LABS: Anisocytosis Slight; Basophils % (A) 0 %; Eosinophils # (A) 0.1 k/uL (0-0.7); Eosinophils % (A) 1 %; HCT 36.8 % (39.0-53.0); HGB 12.1 gm/dL (13.0-17.5); Hypochromasia Slight; Lymphocytes # (A) 1.1 k/uL (1.0-4.8); Lymphocytes % (A) 9 %; MCH 28.6 pg (25.0-35.0); MCHC 32.8 g/dL (31.0-37.0); MCV 87.1 fL (80.0-100.0); Mean Platelet Volume 7.5; Monocytes # (A) 0.6 k/uL (0-1.0); Monocytes % (A) 5 %; Neutrophils # (A) 10.4 k/uL (1.3-7.7); Neutrophils % (A) 85 %; Platelet Count 204 k/uL (150-450); RBC 4.23 m/uL (4.30-5.90); RDW 16.4 % (11.5-15.5); WBC 12.3 k/uL (3.8-10.6)
[2020-05-18 06:39] LABS: INR 2.9 (<1.2); Prothrombin Time 27.9 sec (9.0-12.0)
[2020-05-18 06:43] LABS: Glucose,Whole Blood 181 mg/dL (75-99)
[2020-05-18 06:55] LABS: Calcium 8.8 mg/dL (8.4-10.2); Potassium 3.8 mmol/L (3.5-5.1)
[2020-05-18] MEDS: SYMBICORT 160-4.5 MCG INHALER INHALATION SCH (07:42)
[2020-05-18] MEDS: METOPROLOL TARTRATE 25 MG TAB PO SCH (08:28)
[2020-05-18] MEDS: PANTOPRAZOLE 40 MG TABLET PO SCH (08:29)
[2020-05-18] MEDS: INSULIN ASPART (NovoLOG) 100 UNIT/ML VIAL SQ SCH (08:29)
[2020-05-18] MEDS ORDERED: METOPROLOL SUCCINATE (ER) 50 MG TAB.ER.24H PO SCH (09:00)
--- NOTE | 2020-05-18 09:18 | PN ---
PROGRESS NOTE Mr. Ceron is an 85-year-old male with known history of coronary artery bypass grafting, status post mitral and tricuspid valve repair, history of severe cardiomyopathy and history of biventricular pacing. He is feeling better today. His breathing is better. He denies any symptoms of chest pain. He denies any dizziness, palpitation. He denies any nausea. He is ambulating and feels better overall. He continues to be on metoprolol tartrate 25 mg twice a day, Lipitor 20 mg daily, aspirin once a day, Flomax, his diuretics were on hold. PHYSICAL EXAMINATION: Blood pressure 111/60 with a heart rate in the 80s to 100. LUNGS: Clear. HEART: Regular rate and rhythm, S1, S2. No S3 with systolic murmur no diastolic murmur, no rub. ABDOMEN: Soft, nontender, positive bowel sounds, no organomegaly. EXTREMITIES: No edema. LAB DATA: Revealed BUN and creatinine of 81 and 1.5. His potassium is 3.8. INR is down to 2.9. His NT proBNP is 13,700 which is down. IMPRESSION: 1. Symptoms of congestive heart failure with severe cardiomyopathy. 2. Status post coronary artery bypass grafting and mitral and tricuspid valve repair. 3. Biventricular pacing. 4. Renal failure, improving. RECOMMENDATION: From the cardiac standpoint, I will change his metoprolol to a long acting format because of his cardiomyopathy. Will continue to hold his diuretic and I will also not initiate an JENNIFER inhibitor or Entresto because of his renal function. The patient should be able to restart his anticoagulation at a lower dose and follow his INR closely. He is scheduled to follow up at [facility] soon for his pacemaker to see if optimization of his pacemaker protocol could help his LV systolic function. He will follow up with Dr. Griffin on a regular basis. MMODL / IJN: [id number] /
[2020-05-18 11:44] LABS: Glucose,Whole Blood 201 mg/dL (75-99)
--- NOTE | 2020-05-18 18:56 | P.DS ---
Providers Date of admission: 05/15/20 11:31 Attending physician: Barbra Lopez Consults: 05/13/20 17:04 Consult Physician Routine Consulting Provider: Cyndy Chong Consult Reason/Comments: heart failure Do you want consulting provider notified?: Yes Primary care physician: Emily Dueñas [place] [facility] Course: 85-year-old the pleasant male admitted for heart failure exacerbation patient is presently will be with the patient went into renal failure because of that reason patient did Lasix is being held at this time. Patient's creatinine is 1.8 we'll repeat the basic metabolic profile tomorrow again his baseline appears to be around 1. Patient also has history of atrial fibrillation and had a maze procedure in the past ration is off Coumadin INR is around 3.4the patient is complaining of some tiredness and fatigue. 05/17/2020 Patient had another remains high serum creatinine remains high, was called last night as patient was wheezing patient was started on the inhalation treatments after which his wheezing improved patient doesn't have any JVD today no wheezing today. We'll continue with present medications management and monitor his serum creatinine and INR 05/18/2020 Patient's creatinine improved to 1.5 patient did not require any diuretics the chest x-ray from yesterday did not show any significant pulmonary edema. Patient is otherwise clinically doing well will be discharged today. Patient's INR has come down to 2.9 patient's the target INR is 2-3. We will cut down the Coumadin to 4 mg patient will be discharged today as of the poor renal function and acute renal failure patient is not being discharged on JENNIFER inhibitor, diuretics,entresto. PHYSICAL EXAMINATION: GENERAL: The patient is alert and oriented x3, not in any acute distress. Well developed, well nourished. HEENT: Pupils are round and equally reacting to light. EOMI. No scleral icterus. No conjunctival pallor. Normocephalic, atraumatic. No pharyngeal erythema. No thyromegaly. CARDIOVASCULAR: S1 and S2 present. No murmurs, rubs, or gallops. PULMONARY: Chest is clear to auscultation, no wheezing or crackles. ABDOMEN: Soft, nontender, nondistended, normoactive bowel sounds. No palpable organomegaly. MUSCULOSKELETAL: No joint swelling or deformity. EXTREMITIES: No cyanosis, clubbing, or pedal edema. NEUROLOGICAL: Gross neurological examination did not reveal any focal deficits. SKIN: No rashes. Assessment and Plan Plan: -acute renal failure: Secondary to excessive diuresis and diuretics were held and the patient is not being can urine diuretics will follow-up with cardiology as an outpatient congestive heart failure chronic systolic dysfunction patient had an EF of around the 45% patient is hyper limits at this time holding of diuresis --valvular heart disease with valvular atrial fibrillation: Supple therapy cannot presently improved -Delirium secondary to hospitalization: Expected to improve once patient goes back to his familier conditions -COPD without any acute exacerbation -hyperlipidemia Patient Condition at Discharge: Fair Plan - Discharge Summary Discharge Rx Participant: Yes New Discharge Prescriptions: New Warfarin [Coumadin] 4 mg PO DAILY #30 tab Metoprolol Succinate (ER) [Toprol XL] 50 mg PO DAILY #30 tab.er.24h Continue Tamsulosin [Flomax] 0.4 mg PO HS Aspirin 81 mg PO HS [place]-3 Acid Ethyl Esters [Lovaza] 1 tab PO QAM Ubidecarenone [Co Q-10] 100 mg PO HS Changed Simvastatin [Zocor] 20 mg PO HS #0 Discontinued Warfarin Sodium [Coumadin] 3 mg PO MOFR@1800 Warfarin Sodium [Coumadin] 6 mg PO SUTUWETHSA@1800 Spironolactone-Hctz 25-25Mg [Aldactazide 25-25 MG] 1 tab PO QAM Discharge Medication List Tamsulosin [Flomax] 0.4 mg PO HS 02/24/18 [History] Aspirin 81 mg PO HS 05/13/20 [History] [place]-3 Acid Ethyl Esters [Lovaza] 1 tab PO QAM 05/13/20 [History] Ubidecarenone [Co Q-10] 100 mg PO HS 05/13/20 [History] Metoprolol Succinate (ER) [Toprol XL] 50 mg PO DAILY #30 tab.er.24h 05/18/20 [ Rx] Simvastatin [Zocor] 20 mg PO HS #0 05/18/20 [Rx] Warfarin [Coumadin] 4 mg PO DAILY #30 tab 05/18/20 [Rx] Follow up Appointment(s)/Referral(s): [facility], [NON-STAFF] - 1-2 Days Bladimir Griffin MD [STAFF PHYSICIAN] - 07/17/20 1:45 pm Emily Dueñas MD [Primary Care Provider] - 3 Days Ambulatory/Diagnostic Orders: Basic Metabolic Panel [LAB.AMB] Location: None Selected Prothrombin Time INR [LAB.AMB] Time Frame: 3 Days, Location: None Selected Activity/Diet/Wound Care/Special Instructions: please keep follow up for [facility] for pacemaker. Discharge Disposition: HOME WITH HOME HEALTH SERVICES
[2020-05-19 07:10] VITALS: BP 111/69; PULSE 95; RESP 18; TEMP 97.4
== END 2020-05-18 12:45 | disposition home health service (06) | DRG 292 ==
LOC: EC 15:19 → 1SOBS 17:12 → OBSVTOIN 05-15 11:31
PROVIDERS: ADMIT Hospitalist; ATTEND Hospitalist
DX: I11.0 Hypertensive heart disease with heart failure (principal); E87.1 Hypo-osmolality and hyponatremia; E87.2 Acidosis; N17.9 Acute kidney failure, unspecified; E78.5 Hyperlipidemia, unspecified; E86.0 Dehydration; I25.10 Atherosclerotic heart disease of native coronary artery without angina pectoris; I25.2 Old myocardial infarction; I25.5 Ischemic cardiomyopathy; I48.0 Paroxysmal atrial fibrillation; I50.23 Acute on chronic systolic (congestive) heart failure; J44.9 Chronic obstructive pulmonary disease, unspecified; N40.0 Benign prostatic hyperplasia without lower urinary tract symptoms; R79.1 Abnormal coagulation profile; T45.515A Adverse effect of anticoagulants, initial encounter; Z79.01 Long term (current) use of anticoagulants; Z79.82 Long term (current) use of aspirin; Z11.59 Encounter for screening for other viral diseases; Z79.899 Other long term (current) drug therapy; Z82.0 Family history of epilepsy and other diseases of the nervous system; Z82.5 Family history of asthma and other chronic lower respiratory diseases; Z82.49 Family history of ischemic heart disease and other diseases of the circulatory system; Z85.51 Personal history of malignant neoplasm of bladder; Z86.718 Personal history of other venous thrombosis and embolism; Z95.0 Presence of cardiac pacemaker; Z95.1 Presence of aortocoronary bypass graft; Z98.890 Other specified postprocedural states; R53.83 Other fatigue; T50.2X5A Adverse effect of carbonic-anhydrase inhibitors, benzothiadiazides and other diuretics, initial encounter
CPT/HCPCS: 36415; 71046; 80048; 80053; 80061; 81001; 83036; 83735; 83880; 84443; 84484; 85025; 85610; 85730; 93005; 93306; 94640; 94760; 96360; 99285

== ENCOUNTER 2020-05-20 17:38 | Inpatient (IN) | payer MEDICARE ==
[2020-05-20] MEDS ORDERED: SODIUM CHLORIDE 0.9% 1,000 ML IV STA (18:03)
--- NOTE | 2020-05-20 18:21 | ED ---
Weakness HPI - General Chief complaint: Weakness Stated complaint: WEAKNESS/high heart rate/fall Time Seen by Provider: 05/20/20 17:46 Source: patient, RN notes reviewed, old records reviewed Mode of arrival: wheelchair Limitations: physical limitation - History of Present Illness Initial comments: Patient is an 85-year-old male presents emergency department today for evaluation for concerns for general weakness fatigue leg weakness and worsening shortness of breath since his discharge on . Patient was admitted for CHF. Patient had an ejection fraction of less than 20% on his last echo this week. Patient's bulbaafm-dw-vmd states he's been more confused and a visiting nurse stated that he has been too weak to care for at home. - Related Data Home Medications Medication Instructions Recorded Confirmed Tamsulosin [Flomax] 0.4 mg PO HS 02/24/18 05/20/20 Aspirin 81 mg PO HS 05/13/20 05/20/20 [place]-3 Acid Ethyl Esters [Lovaza] 1 tab PO AC-BRKFST 05/13/20 05/20/20 Ubidecarenone [Co Q-10] 100 mg PO HS 05/13/20 05/20/20 Albuterol Inhaler [Ventolin Hfa 2 puff INHALATION RT-QID PRN 05/20/20 05/20/20 Inhaler] Docusate [Colace] 100 mg PO DAILY PRN 05/20/20 05/20/20 Melatonin 5 mg PO HS PRN 05/20/20 05/20/20 Metoprolol Succinate (ER) [Toprol 50 mg PO HS 05/20/20 05/20/20 XL] Warfarin [Coumadin] 4 mg PO HS@1800 05/20/20 05/20/20 Previous Rx's Medication Instructions Recorded Simvastatin [Zocor] 20 mg PO HS #0 05/18/20 Allergies Allergy/AdvReac Type Severity Reaction Status Date / Time No Known Allergies Allergy Verified 05/20/20 17:43 Review of Systems ROS Statement: Those systems with pertinent positive or pertinent negative responses have been documented in the HPI. ROS Other: All systems not noted in ROS Statement are negative. Past Medical History Past Medical History: Asthma, Cancer, COPD, Deep Vein Thrombosis (DVT), Hyperlipidemia, Myocardial Infarction ([place]) Additional Past Medical History / Comment(s): Ca of bladder, CHF Last Myocardial Infarction Date:: 11/2018 History of Any Multi-Drug Resistant Organisms: None Reported Past Surgical History: Bladder Surgery, Coronary Bypass/CABG, Pacemaker, Tonsillectomy Additional Past Surgical History / Comment(s): bladder tumor resection x2. , open heart with mitral and tricuspid repair, bypass and maize procedure Past Anesthesia/Blood Transfusion Reactions: No Reported Reaction Type of Cardiac Device: Permanent Pacemaker Device Placement Date:: 11/14/2019 Past Psychological History: No Psychological Hx Reported Smoking Status: Never smoker Past Alcohol Use History: None Reported Past Drug Use History: None Reported - Past Family History Father Family Medical History: Asthma Additional Family Medical History / Comment(s): parkinsons Mother Additional Family Medical History / Comment(s): of old age Brother(s) Additional Family Medical History / Comment(s): heart valve replacement General Exam - General Exam Comments Initial Comments: 85-year-old male. Alert and oriented 3. No acute distress. Limitations: physical limitation General appearance: alert, in no apparent distress Head exam: Present: atraumatic, normocephalic, normal inspection Eye exam: Present: normal appearance, PERRL, EOMI. Absent: scleral icterus, conjunctival injection, periorbital swelling ENT exam: Present: normal exam, mucous membranes moist Neck exam: Present: normal inspection. Absent: tenderness, meningismus, lymphadenopathy Respiratory exam: Present: other (Some crackles bilaterally.). Absent: normal lung sounds bilaterally, respiratory distress, wheezes, rales, rhonchi, stridor Cardiovascular Exam: Present: regular rate, normal rhythm, normal heart sounds. Absent: systolic murmur, diastolic murmur, rubs, gallop, clicks GI/Abdominal exam: Present: soft, normal bowel sounds. Absent: distended, tenderness, guarding, rebound, rigid Extremities exam: Present: normal inspection, full ROM, normal capillary refill, other (1+ pitting edema bilaterally.). Absent: tenderness, pedal edema, joint swelling, calf tenderness Back exam: Present: normal inspection Neurological exam: Present: alert, oriented X3, CN II-XII intact Psychiatric exam: Present: normal affect, normal mood Course Vital Signs 05/20/20 05/20/20 05/20/20 17:40 18:27 18:50 Temperature 97.4 F L Pulse Rate 104 H 98 Pulse Rate [ 104 H Bilateral Radial] Respiratory 18 16 Rate Blood Pressure 111/74 118/85 O2 Sat by Pulse 100 99 Oximetry 05/20/20 05/20/20 19:27 20:02 Temperature Pulse Rate Pulse Rate [ Bilateral Radial] Respiratory 17 Rate Blood Pressure 105/94 O2 Sat by Pulse Oximetry Medical Decision Making - Medical Decision Making 85-year-old male presents emergency department today for evaluation for weakness, stumbling and falls and general fatigue and not feeling well since discharge. He is recently admitted for CHF. At this time labwork was reviewed. He does have significantly elevated transaminases. gallbladder ultrasound was performed shows no dilated ducts or signs of infection. Patient states BNP is elevated at 19,000. Started on Lasix. Patient's family is concerned he may have had a TIA or stroke for the weakness however his symptoms seem to be progressively worse since last week. The CT of the brain shows no acute injury cranial abnormality and chronic small vessel ischemic changes are noted. Patient's family informed of these results. Discussed admission at this time. Patient's family also reports that he will need placement into a rehab facility as Patient is not able to stand well or take care of himself at home requiring extra assistance. They are concerned with falls that he would not be able to get up and the is not able to help lift him. - Lab Data Result diagrams: 05/20/20 18:26 05/20/20 18:26 Lab Results 05/20/20 05/20/20 05/20/20 Range/Units 18:26 18:26 18:26 WBC 14.6 H (3.8-10.6) k/uL RBC 4.35 (4.30-5.90) m/uL Hgb 11.9 L (13.0-17.5) gm/dL Hct 37.9 L (39.0-53.0) % MCV 87.1 (80.0-100.0) fL MCH 27.4 (25.0-35.0) pg MCHC 31.4 (31.0-37.0) g/dL RDW 16.7 H (11.5-15.5) % Plt Count 177 (150-450) k/uL Neutrophils % 86 % Lymphocytes % 6 % Monocytes % 6 % Eosinophils % 1 % Basophils % 0 % Neutrophils # 12.5 H (1.3-7.7) k/uL Lymphocytes # 0.9 L (1.0-4.8) k/uL Monocytes # 0.8 (0-1.0) k/uL Eosinophils # 0.1 (0-0.7) k/uL Basophils # 0.0 (0-0.2) k/uL Hypochromasia Slight Anisocytosis Slight PT 30.6 H (9.0-12.0) sec INR 3.1 H (<1.2) APTT 25.0 (22.0-30.0) sec Sodium 131 L (137-145) mmol/L Potassium 3.9 (3.5-5.1) mmol/L Chloride 95 L (98-107) mmol/L Carbon Dioxide 21 L (22-30) mmol/L Anion Gap 15 mmol/L BUN 85 H (9-20) mg/dL Creatinine 1.47 H (0.66-1.25) mg/dL Est GFR (CKD-EPI)AfAm 50 (>60 ml/min/1.73 sqM) Est GFR (CKD-EPI)NonAf 43 (>60 ml/min/1.73 sqM) Glucose 268 H (74-99) mg/dL Lactic Ac Sepsis Rflx Plasma Lactic Acid Raj (0.7-2.0) mmol/L Calcium 8.8 (8.4-10.2) mg/dL Magnesium 3.3 H (1.6-2.3) mg/dL Total Bilirubin 3.0 H (0.2-1.3) mg/dL AST 748 H (17-59) U/L ALT 1429 H (4-49) U/L Alkaline Phosphatase 104 (38-126) U/L Troponin I (0.000-0.034) ng/mL NT-Pro-B Natriuret Pep pg/mL Total Protein 6.3 (6.3-8.2) g/dL Albumin 3.8 (3.5-5.0) g/dL Urine Color Urine Appearance (Clear) Urine pH (5.0-8.0) Ur Specific Bantam (1.001-1.035) Urine Protein (Negative) Urine Glucose (UA) (Negative) Urine Ketones (Negative) Urine Blood (Negative) Urine Nitrite (Negative) Urine Bilirubin (Negative) Urine Urobilinogen (<2.0) mg/dL Ur Leukocyte Esterase (Negative) Urine RBC (0-5) /hpf Urine WBC (0-5) /hpf Urine Bacteria (None) /hpf Hyaline Casts (0-2) /lpf Urine Mucus (None) /hpf 05/20/20 05/20/20 05/20/20 Range/Units 18:26 18:26 18:27 WBC (3.8-10.6) k/uL RBC (4.30-5.90) m/uL Hgb (13.0-17.5) gm/dL Hct (39.0-53.0) % MCV (80.0-100.0) fL MCH (25.0-35.0) pg MCHC (31.0-37.0) g/dL RDW (11.5-15.5) % Plt Count (150-450) k/uL Neutrophils % % Lymphocytes % % Monocytes % % Eosinophils % % Basophils % % Neutrophils # (1.3-7.7) k/uL Lymphocytes # (1.0-4.8) k/uL Monocytes # (0-1.0) k/uL Eosinophils # (0-0.7) k/uL Basophils # (0-0.2) k/uL Hypochromasia Anisocytosis PT (9.0-12.0) sec INR (<1.2) APTT (22.0-30.0) sec Sodium (137-145) mmol/L Potassium (3.5-5.1) mmol/L Chloride (98-107) mmol/L Carbon Dioxide (22-30) mmol/L Anion Gap mmol/L BUN (9-20) mg/dL Creatinine (0.66-1.25) mg/dL Est GFR (CKD-EPI)AfAm (>60 ml/min/1.73 sqM) Est GFR (CKD-EPI)NonAf (>60 ml/min/1.73 sqM) Glucose (74-99) mg/dL Lactic Ac Sepsis Rflx Plasma Lactic Acid Raj 3.3 H* (0.7-2.0) mmol/L Calcium (8.4-10.2) mg/dL Magnesium (1.6-2.3) mg/dL Total Bilirubin (0.2-1.3) mg/dL AST (17-59) U/L ALT (4-49) U/L Alkaline Phosphatase (38-126) U/L Troponin I 0.032 (0.000-0.034) ng/mL NT-Pro-B Natriuret Pep 78166 pg/mL Total Protein (6.3-8.2) g/dL Albumin (3.5-5.0) g/dL Urine Color Urine Appearance (Clear) Urine pH (5.0-8.0) Ur Specific Bantam (1.001-1.035) Urine Protein (Negative) Urine Glucose (UA) (Negative) Urine Ketones (Negative) Urine Blood (Negative) Urine Nitrite (Negative) Urine Bilirubin (Negative) Urine Urobilinogen (<2.0) mg/dL Ur Leukocyte Esterase (Negative) Urine RBC (0-5) /hpf Urine WBC (0-5) /hpf Urine Bacteria (None) /hpf Hyaline Casts (0-2) /lpf Urine Mucus (None) /hpf 05/20/20 05/20/20 Range/Units 18:59 19:27 WBC (3.8-10.6) k/uL RBC (4.30-5.90) m/uL Hgb (13.0-17.5) gm/dL Hct (39.0-53.0) % MCV (80.0-100.0) fL MCH (25.0-35.0) pg MCHC (31.0-37.0) g/dL RDW (11.5-15.5) % Plt Count (150-450) k/uL Neutrophils % % Lymphocytes % % Monocytes % % Eosinophils % % Basophils % % Neutrophils # (1.3-7.7) k/uL Lymphocytes # (1.0-4.8) k/uL Monocytes # (0-1.0) k/uL Eosinophils # (0-0.7) k/uL Basophils # (0-0.2) k/uL Hypochromasia Anisocytosis PT (9.0-12.0) sec INR (<1.2) APTT (22.0-30.0) sec Sodium (137-145) mmol/L Potassium (3.5-5.1) mmol/L Chloride (98-107) mmol/L Carbon Dioxide (22-30) mmol/L Anion Gap mmol/L BUN (9-20) mg/dL Creatinine (0.66-1.25) mg/dL Est GFR (CKD-EPI)AfAm (>60 ml/min/1.73 sqM) Est GFR (CKD-EPI)NonAf (>60 ml/min/1.73 sqM) Glucose (74-99) mg/dL Lactic Ac Sepsis Rflx Y Plasma Lactic Acid Raj (0.7-2.0) mmol/L Calcium (8.4-10.2) mg/dL Magnesium (1.6-2.3) mg/dL Total Bilirubin (0.2-1.3) mg/dL AST (17-59) U/L ALT (4-49) U/L Alkaline Phosphatase (38-126) U/L Troponin I (0.000-0.034) ng/mL NT-Pro-B Natriuret Pep pg/mL Total Protein (6.3-8.2) g/dL Albumin (3.5-5.0) g/dL Urine Color Yellow Urine Appearance Clear (Clear) Urine pH 5.5 (5.0-8.0) Ur Specific Bantam 1.021 (1.001-1.035) Urine Protein 1+ H (Negative) Urine Glucose (UA) 2+ H (Negative) Urine Ketones Negative (Negative) Urine Blood Small H (Negative) Urine Nitrite Negative (Negative) Urine Bilirubin Negative (Negative) Urine Urobilinogen 2.0 (<2.0) mg/dL Ur Leukocyte Esterase Negative (Negative) Urine RBC <1 (0-5) /hpf Urine WBC 1 (0-5) /hpf Urine Bacteria Rare H (None) /hpf Hyaline Casts 14 H (0-2) /lpf Urine Mucus Rare H (None) /hpf 05/20/20 18:50 EKG shows atrial sensed ventricular paced rhythm with occasional PVCs. Abnormal EKG. Ventricular rate of 99 beats were minute. RI interval is 122 ms. QRS duration 90 ms. QTC is 450/577 ms. - Radiology Data Radiology results: report reviewed EKG shows her bladder and chronic small vessel ischemia. No gallstones or dilated duct. No focal liver defect. His x-ray shows no active cardiopulmonary disease. No adverse changes compared old exam. Disposition Clinical Impression: Heart failure Disposition: ADMITTED IP TO THIS HOSP Condition: Stable Is patient prescribed a controlled substance at d/c from ED?: No Referrals: Leana,Emily, MD [Primary Care Provider] - 1-2 days Time of Disposition: 21:48
[2020-05-20 18:37] LABS: Anisocytosis Slight; Basophils % (A) 0 %; Eosinophils # (A) 0.1 k/uL (0-0.7); Eosinophils % (A) 1 %; HCT 37.9 % (39.0-53.0); HGB 11.9 gm/dL (13.0-17.5); Hypochromasia Slight; Lymphocytes # (A) 0.9 k/uL (1.0-4.8); Lymphocytes % (A) 6 %; MCH 27.4 pg (25.0-35.0); MCHC 31.4 g/dL (31.0-37.0); MCV 87.1 fL (80.0-100.0); Mean Platelet Volume 7.9; Monocytes # (A) 0.8 k/uL (0-1.0); Monocytes % (A) 6 %; Neutrophils # (A) 12.5 k/uL (1.3-7.7); Neutrophils % (A) 86 %; Platelet Count 177 k/uL (150-450); RBC 4.35 m/uL (4.30-5.90); RDW 16.7 % (11.5-15.5); WBC 14.6 k/uL (3.8-10.6)
[2020-05-20 18:45] LABS: INR 3.1 (<1.2); Prothrombin Time 30.6 sec (9.0-12.0)
[2020-05-20 18:48] LABS: Albumin 3.8 g/dL (3.5-5.0); Calcium 8.8 mg/dL (8.4-10.2); Magnesium 3.3 mg/dL (1.6-2.3); Potassium 3.9 mmol/L (3.5-5.1); Total Protein 6.3 g/dL (6.3-8.2)
[2020-05-20 19:50] LABS: Appearance,Urine Clear (Clear); Bacteria,Urine Rare /hpf; Bilirubin,Urine Negative (Negative); Blood,Urine Small (Negative); Color,Urine Yellow; Glucose,Urine (UA) 2+ (Negative); Hyaline Casts,Urine 14 /lpf (0-2); Ketones,Urine Negative (Negative); Leukocyte Esterase,Urine Negative (Negative); Mucus,Urine Rare /hpf; Nitrite,Urine Negative (Negative); PH, Urine 5.5 (5.0-8.0); Protein,Urine 1+ (Negative); RBC,Urine <1 /hpf (0-5); Specific Gravity,Urine 1.021 (1.001-1.035); WBC,Urine 1 /hpf (0-5)
--- NOTE | 2020-05-20 19:55 | XR ---
EXAMINATION TYPE: XR chest 2V DATE OF EXAM: 05/20/2020 COMPARISON: 05/17/2020 HISTORY: Weakness. Tachycardia TECHNIQUE: FINDINGS: There is no heart failure nor confluent pneumonic infiltrate. Heart size is fairly normal. There is left axillary pacemaker. There are chest leads. There is no pleural effusion. Bones appear o steopenic. IMPRESSION: No active cardiopulmonary disease. No adverse change compared to old exam.
--- NOTE | 2020-05-20 20:18 | US ---
EXAMINATION TYPE: US gallbladder DATE OF EXAM: 05/20/2020 COMPARISON: NONE CLINICAL HISTORY: transaminitis. abn labs, no pain per patient, h/o bladder CA EXAM MEASUREMENTS: Liver Length: 14.9 cm Gallbladder Wall: 0.3 cm CBD: 0.5 cm Right Kidney: 11.3 x 5.7 x 5.9 cm elderly male with high placement of liver within ribcage, unable to hold deep breath, with overlyin g bowel gas, severely limits study Pancreas: limited views appear wnl Liver: very limited intercostal and subcostal imaging, some nodular contour seen with free fluid not ed at dome and posterior to right lobe Gallbladder: limited assessment showed borderline wall thickening with no obvious other abnormalitie s noted. Evidence for sonographic Chopra's sign: no CBD: wnl Right Kidney: limited views, size wnl IMPRESSION: No gallstones or dilated ducts. No focal liver defect.
--- NOTE | 2020-05-20 20:42 | CT ---
EXAMINATION TYPE: CT brain wo con DATE OF EXAM: 05/20/2020 COMPARISON: None HISTORY: Weakness. CT DLP: 1099.4 mGycm Automated exposure control for dose reduction was used. There is cerebral cortical atrophy. There is no mass effect nor midline shift. There is no sign of in tracranial hemorrhage. There is mild hypodensity in the periventricular white matter. The calvarium i s intact. There is high density mucus retention cyst measuring 2 cm in the right maxillary sinus. IMPRESSION: Cerebral atrophy and chronic small vessel ischemia. No acute intracranial abnormality.
[2020-05-20] MEDS: NITROGLYCERIN OINT 1 INCH/GM PACKET TOPICAL SCH (23:28)
[2020-05-20] MEDS ORDERED: ATORVASTATIN 10 MG TAB PO SCH (23:30)
[2020-05-20] MEDS: MELATONIN 5 MG TABLET PO PRN (23:39)
[2020-05-20] MEDS: TAMSULOSIN 0.4 MG CAP.ER.24H PO SCH (23:39)
[2020-05-20] MEDS: METOPROLOL SUCCINATE (ER) 50 MG TAB.ER.24H PO SCH (23:39)
[2020-05-20] MEDS: FUROSEMIDE 10 MG/ML 4 ML VIAL IV SCH (23:39)
[2020-05-21 06:12] LABS: Glucose,Whole Blood 233 mg/dL (75-99)
--- NOTE | 2020-05-21 08:56 | P.CRDCN ---
History of Present Illness Consult date: 05/21/20 Requesting physician: Barbra Lopez Consult reason: congestive heart failure History of present illness: History of present illness: This is a 85-year-old male with history of multiple comorbidities including BPH, asthma, COPD, DVT, hyperlipidemia, hypertension, myocardial infarction, CHF, CAD status post 1 vessel CABG with mitral valve repair and maze procedure in 05/04/2019. Patient also had pacemaker placement November 2019 [facility]. Patient had a recent hospitalization was discharged home on May 18, treated for congestive heart failure. Patient is currently re siding with a son and dmhzshfo-[id number]. Patient developed increasing weakness over the past couple days with fatigue and shortness of breath. There is also concern for some confusion that may be new for the patient. Patient required 2 person assist to get to the edge of the bed and family is looking for subacute rehab. Patient presents to [facility] emergency center. Diabetes he 14.6, hemoglobin 11.9, platelet 177. INR 3.1, liver function tests were elevated with total bilirubin 3.0, AST 748, ALT 1429, alk phos is 104. Liver function tests were not elevated on last admission. Lactic acid was initially 3.3 and this morning 3.9. Sodium 131, potassium 3.9, chloride 95, CO2 21, BUN 85 and creatinine 1.47, blood sugar 268. Troponin 0.032. ProBNP 19,000. Urinalysis showed small amount of blood. EKG has a history of paced rhythm. Chest x-ray showed no acute cardiopulmonary disease. Ultrasound of the gallbladder showed no gallstones or dilated ducts. No focal liver defect. CAT scan of the brain shows cerebral atrophy with chronic small vessel ischemic changes. No acute intracranial abnormality. Patient received 1 L of IV fluids in the emergency center. He has been resumed on metoprolol succinate 50 bedtime. Lasix is at 40 mg IV every 12 hours. Patient currently denies chest pain or shortness of breath at rest. Most of history is obtained from the p attiera's myjjnfvo-xg-dnx at bedside. Review Of Systems: Constitutional: No fever, no chills. Reports weakness, Reports fatigue Reports lethargy. EENT: No headache. No blurred vision or double vision, no loss of vision. Reports loss of Hearing, no dizziness. No nasal drainage or congestion. No epistaxis. No sore throat. Lungs: Reports shortness of breath, no cough, no sputum production. No wheezing. Cardiovascular: No chest pain, no lower extremity edema. No palpitations. No paroxysmal nocturnal dyspnea. No orthopnea. No lightheadedness or dizziness. No syncopal episodes. Abdominal: No abdominal pain. No nausea, vomiting. No diarrhea. No constipation. No bloody or tarry stools. Genitourinary: No dysuria, increased frequency, urgency. Reports urinary retention. Musculoskeletal: No myalgias. Reports muscle weakness, Reports gait dysfunction, no frequent falls. No back pain. No neck pain. Integumentary: No wounds, no lesions. No rash or pruritus. No unusual bruising. Neurologic: No aphasia. No facial droop. Reports change in mentation. No head injury. No headache. No paralysis. No paresthesia. Psychiatric: No depression. No anxiety. No mood swings. Endocrine: No abnormal blood sugars. No weight change. No excessive sweating or thirst. No weight change. Physical examination: Gen: This is an 85-year-old male. He is resting in bed and appears to be comfortable at rest. Qveysitv-[id number] is at bedside. VS: Patient has been afebrile, heart rate 60, blood pressure 160/69, pulse ox 94% on room air. HEENT: Head is atraumatic, normocephalic. Pupils equal, round. Sclerae is icteric. He is coming to the mouth are slightly dry. NECK: Supple. No JVD. No lymphadenopathy. No thyromegaly. LUNGS: Clear to auscultation, slightly diminished in the bases. No wheezes or rhonchi. No intercostal retractions. HEART: Regular rate and rhythm. Systolic murmur. ABDOMEN: Soft. Bowel sounds are present. No masses. No tenderness. EXTREMITIES: No pedal edema. No calf tenderness. Dorsalis pedis palpable bilaterally. NEUROLOGICAL: Patient is awake, alert and oriented person and place, mild confusion noted. Significant generalized weakness noted. Assessment: Chronic systolic heart failure Metabolic encephalopathy Elevated liver function tests Ischemic cardiomyopathy Paroxysmal atrial fibrillation Coronary artery disease status post 1 vessel CABG Sick sinus syndrome status post pacemaker insertion Paroxysmal atrial fibrillation Lactic acidosis status post 1 L of IV fluid Chronic kidney disease stage III Generalized fatigue and debility Urinary retention requiring straight cath Plan: Transition IV Lasix 40 mg every 12 hours to oral Continue metoprolol succinate 50 mg at bedtime Discontinue Lipitor due to elevated liver function test Repeat CMP today and daily Monitor I&O and daily weights Further recommendations to follow based upon clinical course Thank you kindly for this consultation Nurse practitioner note has been reviewed, I agree with documented findings and plan of care. Patient was seen and examined. Past Medical History Past Medical History: Asthma, Cancer, COPD, Deep Vein Thrombosis (DVT), Hyperlipidemia, Myocardial Infarction ([place]) Additional Past Medical History / Comment(s): Ca of bladder, CHF Last Myocardial Infarction Date:: 11/2018 History of Any Multi-Drug Resistant Organisms: None Reported Past Surgical History: Bladder Surgery, Coronary Bypass/CABG, Pacemaker, To nsillectomy Additional Past Surgical History / Comment(s): bladder tumor resection x2. , open heart with mitral and tricuspid repair, bypass and maize procedure Past Anesthesia/Blood Transfusion Reactions: No Reported Reaction Type of Cardiac Device: Permanent Pacemaker Device Placement Date:: 11/14/2019 Past Psychological History: No Psychological Hx Reported Smoking Status: Never smoker Past Alcohol Use History: None Reported Past Drug Use History: None Reported - Past Family History Father Family Medical History: Asthma Additional Family Medical History / Comment(s): parkinsons Mother Additional Family Medical History / Comment(s): of old age Brother(s) Additional Family Medical History / Comment(s): heart valve replacement Medications and Allergies Home Medications Medication Instructions Recorded Confirmed Type Tamsulosin [Flomax] 0.4 mg PO HS 02/24/18 05/20/20 History Aspirin 81 mg PO HS 05/13/20 05/20/20 History [place]-3 Acid Ethyl Esters [Lovaza] 1 tab PO AC-BRKFST 05/13/20 05/20/20 History Ubidecarenone [Co Q-10] 100 mg PO HS 05/13/20 05/20/20 History Simvastatin [Zocor] 20 mg PO HS #0 05/18/20 05/20/20 Rx Albuterol Inhaler [Ventolin Hfa 2 puff INHALATION RT-QID PRN 05/20/20 05/20/20 History Inhaler] Docusate [Colace] 100 mg PO DAILY PRN 05/20/20 05/20/20 History Melatonin 5 mg PO HS PRN 05/20/20 05/20/20 History Metoprolol Succinate (ER) [Toprol 50 mg PO HS 05/20/20 05/20/20 History XL] Warfarin [Coumadin] 4 mg PO HS@1800 05/20/20 05/20/20 History Allergies Allergy/AdvReac Type Severity Reaction Status Date / Time No Known Allergies Allergy Verified 05/20/20 17:43 Physical Exam Vitals: Vital Signs Temp Pulse Pulse Resp BP BP Pulse Ox 05/21/20 03:19 98.0 F 60 17 168/69 94 L 05/21/20 00:00 98.0 F 99 17 120/87 96 05/20/20 21:50 104 H 16 119/80 96 05/20/20 20:02 17 05/20/20 19:27 105/94 05/20/20 18:50 104 H 05/20/20 18:27 97.4 F L 98 16 118/85 99 05/20/20 17:40 104 H 18 111/74 100 Intake and Output 05/20/20 05/21/20 05/21/20 22:59 06:59 14:59 Intake Total 50 Output Total 2600 Balance 50 -2600 Intake: Intake, IV Titration 50 Amount Sodium Chloride 0.9% 1, 50 000 ml @ 75 mls/hr IV . [id number] STA Rx#:[id number] Output: Urine 1900 Straight 900 Post Void Residual 700 Other: Voiding Method Urinal # Voids 1 Weight 89.811 kg 85.5 kg Results 05/20/20 18:26 05/21/20 09:02 Cardiac Enzymes 05/20/20 05/20/20 Range/Units 18:26 18:26 AST 748 H (17-59) U/L Troponin I 0.032 (0.000-0.034) ng/mL Coagulation 05/20/20 Range/Units 18:26 PT 30.6 H (9.0-12.0) sec APTT 25.0 (22.0-30.0) sec CBC 05/20/20 Range/Units 18:26 WBC 14.6 H (3.8-10.6) k/uL RBC 4.35 (4.30-5.90) m/uL Hgb 11.9 L (13.0-17.5) gm/dL Hct 37.9 L (39.0-53.0) % Plt Count 177 (150-450) k/uL Comprehensive Metabolic Panel 05/20/20 Range/Units 18:26 Sodium 131 L (137-145) mmol/L Potassium 3.9 (3.5-5.1) mmol/L Chloride 95 L (98-107) mmol/L Carbon Dioxide 21 L (22-30) mmol/L BUN 85 H (9-20) mg/dL Creatinine 1.47 H (0.66-1.25) mg/dL Glucose 268 H (74-99) mg/dL Calcium 8.8 (8.4-10.2) mg/dL AST 748 H (17-59) U/L ALT 1429 H (4-49) U/L Alkaline Phosphatase 104 (38-126) U/L Total Protein 6.3 (6.3-8.2) g/dL Albumin 3.8 (3.5-5.0) g/dL Current Medications Generic Name Dose Route Start Last Admin Trade Name Freq PRN Reason Stop Dose Admin Albuterol Sulfate 2.5 mg 05/20/20 23:25 Ventolin Nebulized INHALATION RT-QID PRN Shortness Of Breath Aspirin 325 mg 05/21/20 21:52 Aspirin PO DAILY OSMIN Atorvastatin Calcium 10 mg 05/20/20 23:30 05/20/20 23:39 Lipitor PO 10 mg HS OSMIN Administration Docusate Sodium 100 mg 05/21/20 09:00 Colace PO DAILY PRN Constipation Furosemide 40 mg 05/20/20 22:00 05/20/20 23:39 Lasix IV 40 mg Q12H OSMIN Administration Melatonin 5 mg 05/20/20 23:25 05/20/20 23:39 Melatonin PO 5 mg HS PRN Administration Insomnia Metoprolol Succinate 50 mg 05/20/20 23:30 05/20/20 23:39 Toprol Xl PO 50 mg HS OSMIN Administration Nitroglycerin 0.5 inch 05/20/20 22:00 05/20/20 23:28 Nitro-Bid Oint TOPICAL Not Given QID OSMIN Tamsulosin HCl 0.4 mg 05/20/20 23:30 05/20/20 23:39 Flomax PO 0.4 mg HS OSMIN Administration Intake and Output 05/20/20 05/21/20 05/21/20 22:59 06:59 14:59 Intake Total 50 Output Total 2600 Balance 50 -2600 Intake: Intake, IV Titration 50 Amount Sodium Chloride 0.9% 1, 50 000 ml @ 75 mls/hr IV . [id number] STA Rx#:[id number] Output: Urine 1900 Straight 900 Post Void Residual 700 Other: Voiding Method Urinal # Voids 1 Weight 89.811 kg 85.5 kg 05/20/20 18:26 05/20/20 18:26
[2020-05-21 09:47] LABS: Albumin 3.6 g/dL (3.5-5.0); Calcium 8.3 mg/dL (8.4-10.2); Potassium 4.2 mmol/L (3.5-5.1); Total Bilirubin 3.3 mg/dL (0.2-1.3)
[2020-05-21 11:04] VITALS: BMI 29.5
[2020-05-21] MEDS: NITROGLYCERIN OINT 1 INCH/GM PACKET TOPICAL SCH ×3 (11:20→18:40)
[2020-05-21] MEDS: FUROSEMIDE 10 MG/ML 4 ML VIAL IV SCH (11:20)
[2020-05-21] MEDS: ALBUTEROL NEBULIZED 2.5 MG/3 ML INHALATION PRN ×2 (11:29→19:18)
[2020-05-21 12:20] LABS: Glucose,Whole Blood 262 mg/dL (75-99)
[2020-05-21] MEDS: FUROSEMIDE 40 MG TAB PO SCH (16:32)
[2020-05-21] MEDS: DOCUSATE 100 MG CAP PO PRN (16:36)
[2020-05-21 17:32] LABS: Glucose,Whole Blood 285 mg/dL (75-99)
[2020-05-21 19:58] LABS: Glucose,Whole Blood 296 mg/dL (75-99)
[2020-05-21] MEDS: TAMSULOSIN 0.4 MG CAP.ER.24H PO SCH (20:48)
[2020-05-21] MEDS: METOPROLOL SUCCINATE (ER) 50 MG TAB.ER.24H PO SCH (20:48)
[2020-05-21] MEDS: ASPIRIN 325 MG TAB PO SCH (20:48)
[2020-05-21] MEDS ORDERED: POLYETHYLENE GLYCOL 3350 17 GM POWD.PACK PO PRN (23:00)
--- NOTE | 2020-05-21 23:01 | P.HPIM ---
History of Present Illness H&P Date: 05/21/20 Chief Complaint: Generalized weakness and fatigue Patient is a 85-year-old male with a known history of open heart surgery with mitral and tricuspid valve repair at [facility], bypass and maze procedure as well as permanent pacemaker placement due to sinus syndrome, coronary bypass graft, hypertension, hyperlipidemia, COPD, BPH and other multiple medical problems came to ER with complaints of generalized weakness and fatigue and worsening shortness of breath since his discharge on . Patient also was having increased leg swelling. Patient was treated for acute CHF. Patient is currently deciding with son and [id number]. Patient is requiring 2 person assistance to get to the edge of the bed and family is leaving for subacute rehab. Patient presented to ER with worsening shortness of breath. Patient had 2D echocardiogram which showed ejection fraction less than 20% during recent admission.. Chest x-ray showed no acute cardiopulmonary process. No adverse change compared to old exam. Ultrasound of the gallbladder showed no gallstones or dilated ducts. No focal liver defect. CT head showed cerebral atrophy and chronic small vessel ischemia. No acute intracranial abnormality. EKG showed atrial sensed ventricular paced rhythm with occasional premature ventricular complexes. Laboratory data showed WBC 14.6, hemoglobin 11.9 and platelets 177 Neutrophils 12.5 INR 3.1 Sodium 131, chloride 195 and BUN 85 and creatinine 1.47 Lactic acid 3.3 AST 748 and ALT 1429 proBNP is 19,000 Troponin 0 0.032 UA negative for infection Review of Systems Constitutional: Patient denies any fever or chills . generalized weaknessand fatigue. no weight loss. Abdomen: Patient denied nausea vomiting and diarrhea and abdominal pain. Cardiovascular: Patient denies any chest pain. + short of breath no palpitations. Respiratory: patient denied any cough is from production. No shortness of breath Neurologic: Patient denied any numbness or tingling headache. Musculoskeletal: Patient denies any complaints of joint swelling or deformity. Skin: Negative Psychiatric: Negative Endocrine: No heat or cold intolerance. No recent weight gain. Genitourinary: No dysuria or hematuria. All other 14 point ROS negative except the above Past Medical History Past Medical History: Asthma, Cancer, COPD, Deep Vein Thrombosis (DVT), Hyperlipidemia, Myocardial Infarction ([place]) Additional Past Medical History / Comment(s): Ca of bladder, CHF Last Myocardial Infarction Date:: 11/2018 History of Any Multi-Drug Resistant Organisms: None Reported Past Surgical History: Bladder Surgery, Coronary Bypass/CABG, Pacemaker, Tonsillectomy Additional Past Surgical History / Comment(s): bladder tumor resection x2. , open heart with mitral and tricuspid repair, bypass and maize procedure Past Anesthesia/Blood Transfusion Reactions: No Reported Reaction Type of Cardiac Device: Permanent Pacemaker Device Placement Date:: 11/14/2019 Past Psychological History: No Psychological Hx Reported Smoking Status: Never smoker Past Alcohol Use History: None Reported Past Drug Use History: None Reported - Past Family History Father Family Medical History: Asthma Additional Family Medical History / Comment(s): parkinsons Mother Additional Family Medical History / Comment(s): of old age Brother(s) Additional Family Medical History / Comment(s): heart valve replacement Medications and Allergies Home Medications Medication Instructions Recorded Confirmed Type Tamsulosin [Flomax] 0.4 mg PO HS 02/24/18 05/20/20 History Aspirin 81 mg PO HS 05/13/20 05/20/20 History [place]-3 Acid Ethyl Esters [Lovaza] 1 tab PO AC-BRKFST 05/13/20 05/20/20 History Ubidecarenone [Co Q-10] 100 mg PO HS 05/13/20 05/20/20 History Simvastatin [Zocor] 20 mg PO HS #0 05/18/20 05/20/20 Rx Albuterol Inhaler [Ventolin Hfa 2 puff INHALATION RT-QID PRN 05/20/20 05/20/20 History Inhaler] Docusate [Colace] 100 mg PO DAILY PRN 05/20/20 05/20/20 History Melatonin 5 mg PO HS PRN 05/20/20 05/20/20 History Metoprolol Succinate (ER) [Toprol 50 mg PO HS 05/20/20 05/20/20 History XL] Warfarin [Coumadin] 4 mg PO HS@1800 05/20/20 05/20/20 History Allergies Allergy/AdvReac Type Severity Reaction Status Date / Time No Known Allergies Allergy Verified 05/20/20 17:43 Physical Exam Vitals: Vital Signs Temp Pulse Pulse Resp BP BP Pulse Ox 05/21/20 03:19 98.0 F 60 17 168/69 94 L 05/21/20 00:00 98.0 F 99 17 120/87 96 05/20/20 21:50 104 H 16 119/80 96 05/20/20 20:02 17 05/20/20 19:27 105/94 05/20/20 18:50 104 H 05/20/20 18:27 97.4 F L 98 16 118/85 99 05/20/20 17:40 104 H 18 111/74 100 Intake and Output 05/20/20 05/21/20 05/21/20 22:59 06:59 14:59 Intake Total 50 Output Total 2600 Balance 50 -2600 Intake: Intake, IV Titration 50 Amount Sodium Chloride 0.9% 1, 50 000 ml @ 75 mls/hr IV . [id number] STA Rx#:[id number] Output: Urine 1900 Straight 900 Post Void Residual 700 Other: Voiding Method Urinal # Voids 1 Weight 89.811 kg 85.5 kg PHYSICAL EXAMINATION: Patient is lying in the bed comfortably, no acute distress, awake alert and oriented.. HEENT: Normocephalic. Neck is supple. Pupils reactive. Nostrils clear. Oral cavity is moist. Ears reveal no drainage. Neck reveals no JVD, carotid bruits, or thyromegaly. CHEST EXAMINATION: Trachea is central. Symmetrical expansion.Bibasilar minimal crackles. Lung blancas clear to auscultation and percussion. CARDIAC: Normal S1, S2 with no gallops. No murmurs ABDOMEN: Soft. Bowel sounds normal. No organomegaly. No abdominal bruits. Extremities: trace edema. No clubbing or cyanosis Neurologically awake, alert, oriented x2-3 with well-coordinated movements. No focal deficits noted Skin: No rash or skin lesions. Psychiatric: Coperative. Nonsuicidal Musculoskeletal: No joint swelling or deformity. Normal range of motion. Results CBC & Chem 7: 05/20/20 18:26 05/21/20 09:02 Labs: Abnormal Lab Results - Last 24 Hours (Table) 05/20/20 05/20/20 05/20/20 Range/Units 18:26 18:26 18:26 WBC 14.6 H (3.8-10.6) k/uL Hgb 11.9 L (13.0-17.5) gm/dL Hct 37.9 L (39.0-53.0) % RDW 16.7 H (11.5-15.5) % Neutrophils # 12.5 H (1.3-7.7) k/uL Lymphocytes # 0.9 L (1.0-4.8) k/uL PT 30.6 H (9.0-12.0) sec INR 3.1 H (<1.2) Sodium 131 L (137-145) mmol/L Chloride 95 L (98-107) mmol/L Carbon Dioxide 21 L (22-30) mmol/L BUN 85 H (9-20) mg/dL Creatinine 1.47 H (0.66-1.25) mg/dL Glucose 268 H (74-99) mg/dL POC Glucose (mg/dL) (75-99) mg/dL Plasma Lactic Acid Raj (0.7-2.0) mmol/L Calcium (8.4-10.2) mg/dL Magnesium 3.3 H (1.6-2.3) mg/dL Total Bilirubin 3.0 H (0.2-1.3) mg/dL AST 748 H (17-59) U/L ALT 1429 H (4-49) U/L Total Protein (6.3-8.2) g/dL Urine Protein (Negative) Urine Glucose (UA) (Negative) Urine Blood (Negative) Urine Bacteria (None) /hpf Hyaline Casts (0-2) /lpf Urine Mucus (None) /hpf 05/20/20 05/20/20 05/20/20 Range/Units 18:26 19:27 21:02 WBC (3.8-10.6) k/uL Hgb (13.0-17.5) gm/dL Hct (39.0-53.0) % RDW (11.5-15.5) % Neutrophils # (1.3-7.7) k/uL Lymphocytes # (1.0-4.8) k/uL PT (9.0-12.0) sec INR (<1.2) Sodium (137-145) mmol/L Chloride (98-107) mmol/L Carbon Dioxide (22-30) mmol/L BUN (9-20) mg/dL Creatinine (0.66-1.25) mg/dL Glucose (74-99) mg/dL POC Glucose (mg/dL) (75-99) mg/dL Plasma Lactic Acid Raj 3.3 H* 3.3 H* (0.7-2.0) mmol/L Calcium (8.4-10.2) mg/dL Magnesium (1.6-2.3) mg/dL Total Bilirubin (0.2-1.3) mg/dL AST (17-59) U/L ALT (4-49) U/L Total Protein (6.3-8.2) g/dL Urine Protein 1+ H (Negative) Urine Glucose (UA) 2+ H (Negative) Urine Blood Small H (Negative) Urine Bacteria Rare H (None) /hpf Hyaline Casts 14 H (0-2) /lpf Urine Mucus Rare H (None) /hpf 05/21/20 05/21/20 05/21/20 Range/Units 00:01 06:10 09:02 WBC (3.8-10.6) k/uL Hgb (13.0-17.5) gm/dL Hct (39.0-53.0) % RDW (11.5-15.5) % Neutrophils # (1.3-7.7) k/uL Lymphocytes # (1.0-4.8) k/uL PT (9.0-12.0) sec INR (<1.2) Sodium 130 L (137-145) mmol/L Chloride 95 L (98-107) mmol/L Carbon Dioxide 21 L (22-30) mmol/L BUN 82 H (9-20) mg/dL Creatinine 1.53 H (0.66-1.25) mg/dL Glucose 227 H (74-99) mg/dL POC Glucose (mg/dL) 233 H (75-99) mg/dL Plasma Lactic Acid Raj 3.9 H* (0.7-2.0) mmol/L Calcium 8.3 L (8.4-10.2) mg/dL Magnesium (1.6-2.3) mg/dL Total Bilirubin 3.3 H (0.2-1.3) mg/dL AST 690 H (17-59) U/L ALT 1317 H (4-49) U/L Total Protein 6.0 L (6.3-8.2) g/dL Urine Protein (Negative) Urine Glucose (UA) (Negative) Urine Blood (Negative) Urine Bacteria (None) /hpf Hyaline Casts (0-2) /lpf Urine Mucus (None) /hpf Thrombosis Risk Factor Assmnt - DVT/VTE Prophylaxis DVT/VTE Prophylaxis: Pharmacologic Prophylaxis ordered - Choose All That Apply Each Factor Represents 1 point: Obesity (BMI >25) Each Risk Factor Represents 2 Points: Malignancy Each Risk Factor Represents 3 Points: Age 75 years or older, History of DVT/PE Thrombosis Risk Factor Assessment Total Risk Factor Score: 9 Thrombosis Risk Factor Assessment Level: High Risk Assessment and Plan Assessment: Acute on chronic CHF with ejection fraction 20% on recent echocardiogram Generalized weakness and fatigue and possible metabolic encephalopathy Elevated liver enzymes likely due to hepatic congestion trending down now. Hypervolemic hyponatremia Acute on chronic kidney disease stage III possible cardiorenal Coronary artery disease status post one-vessel CABG Paroxysmal atrial fibrillation on anticoagulation with Coumadin Lactic acidosis on admission due to tissue hypoperfusion Urinary retention status post straight catheterization last night Constipation Plan: Patient was continued on IV hydration and fluid bolus in the ER. Currently patient is on Lasix 40 mg twice daily. Changed to by mouth. Continue with aspirin, metoprolol and monitor blood pressure closely. PT OT will be consulted and possible rehab transfer. Patient is supposed to follow-up with [facility] for pacemaker interrogation, which was placed in November 2019. Prognosis guarded with multiple medical problems and comorbid conditions. Discussed with his [id number] at bedside in detail. Time with Patient: Greater than 30
[2020-05-22] MEDS: NITROGLYCERIN OINT 1 INCH/GM PACKET TOPICAL SCH ×5 (01:01→20:54)
[2020-05-22 06:08] LABS: Glucose,Whole Blood 238 mg/dL (75-99)
[2020-05-22] MEDS: ALBUTEROL NEBULIZED 2.5 MG/3 ML INHALATION PRN ×2 (07:25→20:05)
[2020-05-22 07:58] LABS: Albumin 3.4 g/dL (3.5-5.0); Calcium 8.2 mg/dL (8.4-10.2); Potassium 3.6 mmol/L (3.5-5.1); Total Bilirubin 3.1 mg/dL (0.2-1.3); Total Protein 5.9 g/dL (6.3-8.2)
[2020-05-22] MEDS: ASPIRIN 325 MG TAB PO SCH (08:59)
[2020-05-22] MEDS: FUROSEMIDE 40 MG TAB PO SCH (08:59)
[2020-05-22 09:42] LABS: Hepatitis A Antibody IgM Non-Reactive (Non-Reactive); Hepatitis B Core IgM Non-Reactive (Non-Reactive); Hepatitis B Surface Antigen Non-Reactive (Non-Reactive); Hepatitis C IgG Antibody Non-Reactive (Non-Reactive)
[2020-05-22] MEDS ORDERED: FUROSEMIDE 10 MG/ML 4 ML VIAL IV STA (10:29)
[2020-05-22] MEDS: FUROSEMIDE 100 MG in SODIUM CHLORIDE 0.9% 90 ML IV SCH ×2 (11:42→22:36)
[2020-05-22] MEDS: POTASSIUM CHLORIDE ER 20 MEQ TAB.ER PO SCH (11:46)
[2020-05-22 11:55] LABS: Glucose,Whole Blood 369 mg/dL (75-99)
[2020-05-22] MEDS: DOBUTamine DRIP 500 MG in DEXTROSE/WATER 1 250ML.BAG IV SCH (12:27)
--- NOTE | 2020-05-22 14:18 | PN ---
PROGRESS NOTE Mr. Ceron is a gentleman with a history of CAD, prior PCI, also had a mitral valve repair with a single graft and this was performed in April of 2019. He sees Dr. Griffin, but has been doing most of his followup at [facility]. He was recently discharged, comes back in with feeding, complaining of shortness of breath, weakness, tired, fatigue and he is in heart failure. He was seen by Dr. Lewis yesterday. His liver functions are quite abnormal. He probably has significant congestion with poor LV function. I spent a lot of time talking to the patient and also his son. I am recommending that we initiate him on a Lasix and dobutamine drip and supplement with potassium. I also encouraged him to talk to [facility] and see if he has a biventricular pacemaker or he has an ICD. He will probably benefit from a Bi V ICD and this discussion will take place between the patient's son, who is a physician and storage consultant with whom he has an appointment scheduled for tomorrow. Vitals are stable. JVD is evident. S1-S2 heard normally, short systolic murmur noted. Lungs reveal diminished air entry. Abdomen is soft. Lower extremities reveal diminished pulses, trace edema. Central nervous system is grossly within normal limits. IMPRESSION: 1. Systolic heart failure, chronic with worsening signs and evidence of biventricular failure. 2. History of mitral valve repair and aortocoronary bypass surgery, details unavailable. 3. History of previous PCI. RECOMMENDATION: I am recommending a Lasix drip and dobutamine drip, supplement potassium and also communicated with the [facility] through patient's son, who is a physician. Prognosis remains poor. MMODL / IJN: [id number] /
[2020-05-22 17:13] LABS: Glucose,Whole Blood 287 mg/dL (75-99)
[2020-05-22 20:47] LABS: Glucose,Whole Blood 273 mg/dL (75-99)
[2020-05-22] MEDS: TAMSULOSIN 0.4 MG CAP.ER.24H PO SCH (20:54)
[2020-05-22 21:24] LABS: Calcium 8.2 mg/dL (8.4-10.2); Potassium 3.5 mmol/L (3.5-5.1)
--- NOTE | 2020-05-23 00:54 | P.PN ---
Subjective Progress Note Date: 05/22/20 Principal diagnosis: Acute on chronic CHF with systolic dysfunction Patient is a 85-year-old male with a known history of open heart surgery with mitral and tricuspid valve repair at [facility], bypass and maze procedure as well as permanent pacemaker placement due to sinus syndrome, coronary bypass graft, hypertension, hyperlipidemia, COPD, BPH and other multiple medical problems came to ER with complaints of generalized weakness and fatigue and worsening shortness of breath since his discharge on . Patient also was having increased leg swelling. Patient was treated for acute CHF. Patient is currently deciding with son and [id number]. Patient is requiring 2 person assistance to get to the edge of the bed and family is leaving for subacute rehab. Patient presented to ER with worsening shortness of breath. Patient had 2D echocardiogram which showed ejection fraction less than 20% during recent admission.. Chest x-ray showed no acute cardiopulmonary process. No adverse change compared to old exam. Ultrasound of the gallbladder showed no gallstones or dilated ducts. No focal liver defect. CT head showed cerebral atrophy and chronic small vessel ischemia. No acute intracranial abnormality. EKG showed atrial sensed ventricular paced rhythm with occasional premature ventricular complexes. Laboratory data showed WBC 14.6, hemoglobin 11.9 and platelets 177 Neutrophils 12.5 INR 3.1 Sodium 131, chloride 195 and BUN 85 and creatinine 1.47 Lactic acid 3.3 AST 748 and ALT 1429 proBNP is 19,000 Troponin 0 0.032 UA negative for infection 05/22/2020 Patient is currently sitting in a chair comfortably. Able to ambulate in the hallway with physical therapy. Patient states that his breathing is better. Patient did have bowel movement yesterday. Patient still having urinary retention and requiring straight catheterization twice last night. Tolerating oral diet. Cardiology is planning for dobutamine drip and Lasix drip for next 24 hours. Laboratory data showed sodium 129, potassium 3.6, chloride 95, BUN 18 and creatinine 1.42 AST 435, ALT 1035 Albumin 3.4 Cardiology is following. Discussed with his son at bedside in detail. Current medications reviewed. Objective - Vital Signs Vital signs: Vital Signs Temp 98.0 F 05/22/20 03:18 Pulse 104 H 05/22/20 20:15 Resp 16 05/22/20 16:00 BP 98/64 05/22/20 12:00 Pulse Ox 98 05/22/20 12:00 Intake & Output 05/22/20 05/22/20 05/23/20 06:59 18:59 06:59 Intake Total 480 Output Total 200 Balance -200 480 Weight 89.1 kg Intake: Oral 480 Output: Urine 200 Other: Voiding Method Urinal Urinal - Exam PHYSICAL EXAMINATION: Patient is lying in the bed comfortably, no acute distress, awake alert and oriented.. HEENT: Normocephalic. Neck is supple. Pupils reactive. Nostrils clear. Oral cavity is moist. Ears reveal no drainage. Neck reveals no JVD, carotid bruits, or thyromegaly. CHEST EXAMINATION: Trachea is central. Symmetrical expansion.Bibasilar minimal crackles. Lung blancas clear to auscultation and percussion. CARDIAC: Normal S1, S2 with no gallops. No murmurs ABDOMEN: Soft. Bowel sounds normal. No organomegaly. No abdominal bruits. Extremities: trace edema. No clubbing or cyanosis Neurologically awake, alert, oriented x2-3 with well-coordinated movements. No focal deficits noted Skin: No rash or skin lesions. Psychiatric: Coperative. Nonsuicidal Musculoskeletal: No joint swelling or deformity. Normal range of motion. - Labs CBC & Chem 7: 05/20/20 18:26 05/22/20 21:04 Labs: Abnormal Lab Results - Last 24 Hours (Table) 05/22/20 05/22/20 05/22/20 Range/Units 06:05 06:17 11:31 Sodium 129 L (137-145) mmol/L Chloride 95 L (98-107) mmol/L BUN 80 H (9-20) mg/dL Creatinine 1.42 H (0.66-1.25) mg/dL Glucose 185 H (74-99) mg/dL POC Glucose (mg/dL) 238 H 369 H (75-99) mg/dL Calcium 8.2 L (8.4-10.2) mg/dL Total Bilirubin 3.1 H (0.2-1.3) mg/dL AST 435 H (17-59) U/L ALT 1035 H (4-49) U/L Total Protein 5.9 L (6.3-8.2) g/dL Albumin 3.4 L (3.5-5.0) g/dL 05/22/20 05/22/2020 Range/Units 16:32 20:45 21:04 Sodium 128 L (137-145) mmol/L Chloride 94 L (98-107) mmol/L BUN 73 H (9-20) mg/dL Creatinine 1.26 H (0.66-1.25) mg/dL Glucose 235 H (74-99) mg/dL POC Glucose (mg/dL) 287 H 273 H (75-99) mg/dL Calcium 8.2 L (8.4-10.2) mg/dL Total Bilirubin (0.2-1.3) mg/dL AST (17-59) U/L ALT (4-49) U/L Total Protein (6.3-8.2) g/dL Albumin (3.5-5.0) g/dL Assessment and Plan Assessment: Acute on chronic CHF with ejection fraction 20% on recent echocardiogram Generalized weakness and fatigue and possible metabolic encephalopathy Elevated liver enzymes likely due to hepatic congestion trending down now. Hypervolemic hyponatremia Acute on chronic kidney disease stage III possible cardiorenal Coronary artery disease status post one-vessel CABG Paroxysmal atrial fibrillation on anticoagulation with Coumadin Lactic acidosis on admission due to tissue hypoperfusion Urinary retention status post straight catheterization last night Constipation Plan: Patient was continued on IV hydration and fluid bolus in the ER. Currently patient is on Lasix 40 mg twice daily. Changed to by mouth. Patient was started on Lasix drip and dobutamine drip. Cardiology is following. Continue with aspirin, metoprolol and monitor blood pressure closely. PT OT will be consulted and possible rehab transfer. Patient is supposed to follow-up with [facility] for pacemaker interrogation, which was placed in November 2019. Prognosis guarded with multiple medical problems and comorbid conditions. Discussed with his [id number] at bedside in detail. Time with Patient: Greater than 30
[2020-05-23 06:00] LABS: Glucose,Whole Blood 237 mg/dL (75-99)
[2020-05-23 07:14] LABS: Albumin 3.4 g/dL (3.5-5.0); Calcium 7.9 mg/dL (8.4-10.2); Potassium 3.3 mmol/L (3.5-5.1); Total Bilirubin 4.2 mg/dL (0.2-1.3); Total Protein 5.8 g/dL (6.3-8.2)
[2020-05-23] MEDS: ALBUTEROL NEBULIZED 2.5 MG/3 ML INHALATION PRN ×3 (08:15→16:17)
[2020-05-23] MEDS ORDERED: POTASSIUM CHLORIDE ER 20 MEQ TAB.ER PO STA (09:10)
[2020-05-23] MEDS ORDERED: FUROSEMIDE 10 MG/ML 4 ML VIAL IV STA (09:11)
[2020-05-23] MEDS: NITROGLYCERIN OINT 1 INCH/GM PACKET TOPICAL SCH ×4 (09:22→21:21)
[2020-05-23] MEDS: POTASSIUM CHLORIDE ER 20 MEQ TAB.ER PO SCH (09:22)
[2020-05-23] MEDS: ASPIRIN 325 MG TAB PO SCH (09:22)
[2020-05-23] MEDS: FUROSEMIDE 100 MG in SODIUM CHLORIDE 0.9% 90 ML IV SCH ×2 (09:24→21:25)
[2020-05-23] MEDS: DOBUTamine DRIP 500 MG in DEXTROSE/WATER 1 250ML.BAG IV SCH (09:25)
[2020-05-23 11:58] LABS: Glucose,Whole Blood 272 mg/dL (75-99)
--- NOTE | 2020-05-23 12:20 | PN ---
PROGRESS NOTE Mr. Ceron is doing much better today. He has a biventricular pacemaker. Apparently not an ICD according to the son who is an ER physician. With dobutamine drip and Lasix drip, he feels much better, more energetic, is sitting up talking and not in overt heart failure. Plan is to continue Lasix at 10 mg/hour drip with a 40 mg bolus. Continue dobutamine supplement potassium. Vitals are stable. JVD 1 cm, no carotid bruit. S1-S2 heard normally, short systolic murmur noted. Lungs reveal improved air entry. Abdomen and lower extremity exam unchanged. PLAN: To continue the current medical regimen, see how he does over 24 hours. Plan for discharge in 48-72 hours. MMODL / IJN: [id number] /
[2020-05-23] MEDS: INSULIN ASPART (NovoLOG) 100 UNIT/ML VIAL SQ SCH ×3 (16:27→21:20)
[2020-05-23 16:40] LABS: Glucose,Whole Blood 284 mg/dL (75-99)
[2020-05-23 17:32] LABS: Hemoglobin A1C 7.5 % (4.0-6.0)
[2020-05-23 20:41] LABS: Calcium 8.1 mg/dL (8.4-10.2); Potassium 3.6 mmol/L (3.5-5.1)
[2020-05-23 20:43] LABS: Glucose,Whole Blood 189 mg/dL (75-99)
[2020-05-23] MEDS: TAMSULOSIN 0.4 MG CAP.ER.24H PO SCH (21:21)
[2020-05-24] MEDS: MELATONIN 5 MG TABLET PO PRN (01:54)
[2020-05-24] MEDS: DOBUTamine DRIP 500 MG in DEXTROSE/WATER 1 250ML.BAG IV SCH (01:55)
[2020-05-24 06:28] LABS: Glucose,Whole Blood 207 mg/dL (75-99)
[2020-05-24] MEDS: INSULIN ASPART (NovoLOG) 100 UNIT/ML VIAL SQ SCH ×4 (06:45→21:07)
[2020-05-24 06:56] LABS: Calcium 7.7 mg/dL (8.4-10.2); Potassium 3.8 mmol/L (3.5-5.1)
[2020-05-24] MEDS: NITROGLYCERIN OINT 1 INCH/GM PACKET TOPICAL SCH (08:23)
[2020-05-24] MEDS: ASPIRIN 325 MG TAB PO SCH (08:23)
[2020-05-24] MEDS: POTASSIUM CHLORIDE ER 20 MEQ TAB.ER PO SCH (08:23)
[2020-05-24] MEDS: ALBUTEROL NEBULIZED 2.5 MG/3 ML INHALATION PRN ×4 (08:51→20:21)
[2020-05-24] MEDS ORDERED: SACUBITRIL/VALSARTAN 24 MG-26 MG TABLET PO SCH (09:15)
[2020-05-24] MEDS ORDERED: DOBUTamine DRIP 500 MG in DEXTROSE/WATER 1 250ML.BAG IV SCH (09:30)
[2020-05-24] MEDS: METOPROLOL TARTRATE 12.5 MG TAB PO SCH ×4 (10:56→20:47)
[2020-05-24] MEDS: DOCUSATE 100 MG CAP PO PRN (10:57)
[2020-05-24] MEDS: SPIRONOLACTONE 25 MG TAB PO SCH (10:57)
[2020-05-24] MEDS ORDERED: ACETAMINOPHEN TAB 500 MG TAB PO PRN (11:06)
[2020-05-24 11:42] LABS: Glucose,Whole Blood 230 mg/dL (75-99)
--- NOTE | 2020-05-24 14:06 | PN ---
PROGRESS NOTE Mr. Ceron is feeling a bit better. He complains of fatigue and lack of energy, but breathing is easier. I will decrease the dobutamine drip from 5-2.5 because of some bradycardia, also initiate him on Entresto one tablet b.i.d., Lopressor will also be started at a low dose and see how he tolerates this. This patient has severe systolic heart failure with mitral regurgitation, previous mitral valve repair. Prognosis somehow remains guarded, based on clinical course, I will make further recommendation to this patient. I will also start him on 12.5 mg Aldactone. He is on a small dose of metoprolol at 12.5 mg t.i.d. Will decrease the dobutamine. Prognosis remains guarded. Based on clinical course, I will make further recommendations. ROYAL / MARCOS: [id number] /
[2020-05-24 17:01] LABS: Glucose,Whole Blood 194 mg/dL (75-99)
[2020-05-24 20:42] LABS: Glucose,Whole Blood 163 mg/dL (75-99)
[2020-05-24] MEDS: FUROSEMIDE 100 MG in SODIUM CHLORIDE 0.9% 90 ML IV SCH ×3 (20:45→22:58)
[2020-05-24] MEDS: TAMSULOSIN 0.4 MG CAP.ER.24H PO SCH (21:07)
[2020-05-24 22:20] LABS: Calcium 7.7 mg/dL (8.4-10.2); Magnesium 2.2 mg/dL (1.6-2.3); Potassium 3.8 mmol/L (3.5-5.1)
[2020-05-24 23:22] VITALS: TEMP 97.4
[2020-05-25 06:03] LABS: Glucose,Whole Blood 143 mg/dL (75-99)
[2020-05-25] MEDS: INSULIN ASPART (NovoLOG) 100 UNIT/ML VIAL SQ SCH (06:41)
[2020-05-25] MEDS ORDERED: ONDANSETRON 4 MG/2 ML VIAL IVP PRN (06:54)
[2020-05-25 08:04] LABS: Calcium 7.6 mg/dL (8.4-10.2); Potassium 4.1 mmol/L (3.5-5.1)
[2020-05-25] MEDS: ALBUTEROL NEBULIZED 2.5 MG/3 ML INHALATION PRN ×2 (08:13→11:55)
[2020-05-25] MEDS: METOPROLOL TARTRATE 12.5 MG TAB PO SCH (08:54)
[2020-05-25] MEDS: SPIRONOLACTONE 25 MG TAB PO SCH (08:55)
[2020-05-25] MEDS: POTASSIUM CHLORIDE ER 20 MEQ TAB.ER PO SCH (08:57)
[2020-05-25 09:00] VITALS: RESP 16
[2020-05-25] MEDS ORDERED: FAMOTIDINE 20 MG TAB PO SCH ×2 (09:00)
--- NOTE | 2020-05-25 10:39 | P.PN ---
Subjective Progress Note Date: 05/23/20 Principal diagnosis: Acute on chronic CHF with systolic dysfunction Patient is a 85-year-old male with a known history of open heart surgery with mitral and tricuspid valve repair at [facility], bypass and maze procedure as well as permanent pacemaker placement due to sinus syndrome, coronary bypass graft, hypertension, hyperlipidemia, COPD, BPH and other multiple medical problems came to ER with complaints of generalized weakness and fatigue and worsening shortness of breath since his discharge on . Patient also was having increased leg swelling. Patient was treated for acute CHF. Patient is currently deciding with son and [id number]. Patient is requiring 2 person assistance to get to the edge of the bed and family is leaving for subacute rehab. Patient presented to ER with worsening shortness of breath. Patient had 2D echocardiogram which showed ejection fraction less than 20% during recent admission.. Chest x-ray showed no acute cardiopulmonary process. No adverse change compared to old exam. Ultrasound of the gallbladder showed no gallstones or dilated ducts. No focal liver defect. CT head showed cerebral atrophy and chronic small vessel ischemia. No acute intracranial abnormality. EKG showed atrial sensed ventricular paced rhythm with occasional premature ventricular complexes. Laboratory data showed WBC 14.6, hemoglobin 11.9 and platelets 177 Neutrophils 12.5 INR 3.1 Sodium 131, chloride 195 and BUN 85 and creatinine 1.47 Lactic acid 3.3 AST 748 and ALT 1429 proBNP is 19,000 Troponin 0 0.032 UA negative for infection 05/22/2020 Patient is currently sitting in a chair comfortably. Able to ambulate in the hallway with physical therapy. Patient states that his breathing is better. Patient did have bowel movement yesterday. Patient still having urinary retention and requiring straight catheterization twice last night. Tolerating oral diet. Cardiology is planning for dobutamine drip and Lasix drip for next 24 hours. Laboratory data showed sodium 129, potassium 3.6, chloride 95, BUN 18 and creatinine 1.42 AST 435, ALT 1035 Albumin 3.4 Cardiology is following. Discussed with his son at bedside in detail. 05/23/2020 Patient states that his breathing is better today. Continue on dobutamine and Lasix drip for the next 24 hours As per cardiology. Blood pressure is on the lower side. Continued on potassium supplementation. Denied any complaints of nausea vomiting or abdominal pain. Tolerating oral diet otherwise. Family is considering hospice care upon discharge. Patient has been afebrile. Still requiring straight catheterization. Current medications reviewed. Objective - Vital Signs Vital signs: Vital Signs Temp 97.6 F 05/23/20 04:00 Pulse 90 05/23/20 11:45 Resp 16 05/23/20 11:38 BP 100/64 05/23/20 08:00 Pulse Ox 96 05/23/20 08:00 Intake & Output 05/22/20 05/23/20 05/23/20 18:59 06:59 18:59 Intake Total 480 87.2 336.4 Output Total 1875 400 Balance 480 -1787.8 -63.6 Weight 87.9 kg Intake: Intake, IV Titration 87.2 336.4 Amount DOBUTamine DRIP 500 mg In 250 Dextrose/Water 1 250ml. bag @ 5 MCG/KG/MIN 13.365 mls/hr IV .[id number] [facility] Rx#:[id number] Furosemide 100 mg In 87.2 86.4 Sodium Chloride 0.9% 90 ml @ 10 MG/HR 10 mls/hr IV .Q10H [facility] Rx#: [id number] Oral 480 Output: Urine 1875 400 Other: Voiding Method Urinal Urinal Urinal - Exam PHYSICAL EXAMINATION: Patient is lying in the bed comfortably, no acute distress, awake alert and oriented.. HEENT: Normocephalic. Neck is supple. Pupils reactive. Nostrils clear. Oral cavity is moist. Ears reveal no drainage. Neck reveals no JVD, carotid bruits, or thyromegaly. CHEST EXAMINATION: Trachea is central. Symmetrical expansion.Bibasilar minimal crackles. Lung blancas clear to auscultation and percussion. CARDIAC: Normal S1, S2 with no gallops. No murmurs ABDOMEN: Soft. Bowel sounds normal. No organomegaly. No abdominal bruits. Extremities: trace edema. No clubbing or cyanosis Neurologically awake, alert, oriented x2-3 with well-coordinated movements. No focal deficits noted Skin: No rash or skin lesions. Psychiatric: Coperative. Nonsuicidal Musculoskeletal: No joint swelling or deformity. Normal range of motion. - Labs CBC & Chem 7: 05/20/20 18:26 05/25/20 06:37 Labs: Abnormal Lab Results - Last 24 Hours (Table) 05/22/20 05/22/20 05/22/20 Range/Units 16:32 20:45 21:04 Sodium 128 L (137-145) mmol/L Potassium (3.5-5.1) mmol/L Chloride 94 L (98-107) mmol/L BUN 73 H (9-20) mg/dL Creatinine 1.26 H (0.66-1.25) mg/dL Glucose 235 H (74-99) mg/dL POC Glucose (mg/dL) 287 H 273 H (75-99) mg/dL Calcium 8.2 L (8.4-10.2) mg/dL Magnesium (1.6-2.3) mg/dL Total Bilirubin (0.2-1.3) mg/dL AST (17-59) U/L ALT (4-49) U/L Total Protein (6.3-8.2) g/dL Albumin (3.5-5.0) g/dL 05/23/20 05/23/20 05/23/20 Range/Units 05:58 06:28 06:28 Sodium 130 L (137-145) mmol/L Potassium 3.3 L (3.5-5.1) mmol/L Chloride 93 L (98-107) mmol/L BUN 61 H (9-20) mg/dL Creatinine (0.66-1.25) mg/dL Glucose 209 H (74-99) mg/dL POC Glucose (mg/dL) 237 H (75-99) mg/dL Calcium 7.9 L (8.4-10.2) mg/dL Magnesium 2.4 H (1.6-2.3) mg/dL Total Bilirubin 4.2 H (0.2-1.3) mg/dL AST 271 H (17-59) U/L ALT 840 H (4-49) U/L Total Protein 5.8 L (6.3-8.2) g/dL Albumin 3.4 L (3.5-5.0) g/dL 05/23/20 Range/Units 11:56 Sodium (137-145) mmol/L Potassium (3.5-5.1) mmol/L Chloride (98-107) mmol/L BUN (9-20) mg/dL Creatinine (0.66-1.25) mg/dL Glucose (74-99) mg/dL POC Glucose (mg/dL) 272 H (75-99) mg/dL Calcium (8.4-10.2) mg/dL Magnesium (1.6-2.3) mg/dL Total Bilirubin (0.2-1.3) mg/dL AST (17-59) U/L ALT (4-49) U/L Total Protein (6.3-8.2) g/dL Albumin (3.5-5.0) g/dL Assessment and Plan Assessment: Acute on chronic CHF with ejection fraction 20% on recent echocardiogram Generalized weakness and fatigue and possible metabolic encephalopathy Elevated liver enzymes likely due to hepatic congestion trending down now. Hypervolemic hyponatremia Acute on chronic kidney disease stage III possible cardiorenal Coronary artery disease status post one-vessel CABG Paroxysmal atrial fibrillation on anticoagulation with Coumadin Lactic acidosis on admission due to tissue hypoperfusion Urinary retention status post straight catheterization last night Constipation Plan: Patient was continued on IV hydration and fluid bolus in the ER. Currently patient is on Lasix 40 mg twice daily. Changed to by mouth. Patient was started on Lasix drip and dobutamine drip. Cardiology is following. Continue with aspirin, metoprolol and monitor blood pressure closely. PT OT will be consulted and possible rehab transfer. Patient is supposed to follow-up with [facility] for pacemaker interrogation, which was placed in November 2019. Prognosis guarded with multiple medical problems and comorbid conditions. Discussed with his [id number] at bedside in detail. Time with Patient: Greater than 30
--- NOTE | 2020-05-25 10:44 | P.PN ---
Subjective Progress Note Date: 05/24/20 Principal diagnosis: Acute on chronic CHF with systolic dysfunction Patient is a 85-year-old male with a known history of open heart surgery with mitral and tricuspid valve repair at [facility], bypass and maze procedure as well as permanent pacemaker placement due to sinus syndrome, coronary bypass graft, hypertension, hyperlipidemia, COPD, BPH and other multiple medical problems came to ER with complaints of generalized weakness and fatigue and worsening shortness of breath since his discharge on . Patient also was having increased leg swelling. Patient was treated for acute CHF. Patient is currently deciding with son and [id number]. Patient is requiring 2 person assistance to get to the edge of the bed and family is leaving for subacute rehab. Patient presented to ER with worsening shortness of breath. Patient had 2D echocardiogram which showed ejection fraction less than 20% during recent admission.. Chest x-ray showed no acute cardiopulmonary process. No adverse change compared to old exam. Ultrasound of the gallbladder showed no gallstones or dilated ducts. No focal liver defect. CT head showed cerebral atrophy and chronic small vessel ischemia. No acute intracranial abnormality. EKG showed atrial sensed ventricular paced rhythm with occasional premature ventricular complexes. Laboratory data showed WBC 14.6, hemoglobin 11.9 and platelets 177 Neutrophils 12.5 INR 3.1 Sodium 131, chloride 195 and BUN 85 and creatinine 1.47 Lactic acid 3.3 AST 748 and ALT 1429 proBNP is 19,000 Troponin 0 0.032 UA negative for infection 05/22/2020 Patient is currently sitting in a chair comfortably. Able to ambulate in the hallway with physical therapy. Patient states that his breathing is better. Patient did have bowel movement yesterday. Patient still having urinary retention and requiring straight catheterization twice last night. Tolerating oral diet. Cardiology is planning for dobutamine drip and Lasix drip for next 24 hours. Laboratory data showed sodium 129, potassium 3.6, chloride 95, BUN 18 and creatinine 1.42 AST 435, ALT 1035 Albumin 3.4 Cardiology is following. Discussed with his son at bedside in detail. 05/23/2020 Patient states that his breathing is better today. Continue on dobutamine and Lasix drip for the next 24 hours As per cardiology. Blood pressure is on the lower side. Continued on potassium supplementation. Denied any complaints of nausea vomiting or abdominal pain. Tolerating oral diet otherwise. Family is considering hospice care upon discharge. Patient has been afebrile. Still requiring straight catheterization. 05/24/2020 Patient is currently lying in the bed comfortably. Breathing is better. Dobutamine drip has been titrated down and patient was initiated on Entresto. Patient was also started on low-dose beta-blockers and Aldactone. Prognosis guarded with Multiple medical problems and comorbid conditions. May li is considering hospice care upon discharge. Laboratory data showed sodium 124, potassium 3.8 and chloride 89 BUN 61 and creatinine 1.86 Anticipate discharge to extended care facility in the next 24 hours. Current medications reviewed. Objective - Vital Signs Vital signs: Vital Signs Temp 97.3 F L 05/24/20 04:00 Pulse 82 05/24/20 16:27 Resp 16 05/24/20 16:00 BP 103/55 05/24/20 10:59 Pulse Ox 99 05/24/20 10:59 Intake & Output 05/23/20 05/24/20 05/24/20 18:59 06:59 18:59 Intake Total 336.4 316.656 240 Output Total 800 1000 50 Balance -463.6 -683.344 190 Weight 88.8 kg Intake: Intake, IV Titration 336.4 316.656 Amount DOBUTamine DRIP 500 mg In 250 220.523 Dextrose/Water 1 250ml. bag @ 5 MCG/KG/MIN 13.365 mls/hr IV .[id number] COUNTS INCLUDE 234 BEDS AT THE [facility] Rx#:[id number] Furosemide 100 mg In 86.4 96.133 Sodium Chloride 0.9% 90 ml @ 10 MG/HR 10 mls/hr IV .Q10H [facility] Rx#: [id number] Oral 240 Output: Urine 800 1000 50 Other: Voiding Method Urinal Urinal Urinal # Voids 1 0 - Exam PHYSICAL EXAMINATION: Patient is lying in the bed comfortably, no acute distress, awake alert and oriented.. HEENT: Normocephalic. Neck is supple. Pupils reactive. Nostrils clear. Oral cavity is moist. Ears reveal no drainage. Neck reveals no JVD, carotid bruits, or thyromegaly. CHEST EXAMINATION: Trachea is central. Symmetrical expansion.Bibasilar minimal crackles. Lung blancas clear to auscultation and percussion. CARDIAC: Normal S1, S2 with no gallops. No murmurs ABDOMEN: Soft. Bowel sounds normal. No organomegaly. No abdominal bruits. Extremities: trace edema. No clubbing or cyanosis Neurologically awake, alert, oriented x2-3 with well-coordinated movements. No focal deficits noted Skin: No rash or skin lesions. Psychiatric: Coperative. Nonsuicidal Musculoskeletal: No joint swelling or deformity. Normal range of motion. - Labs CBC & Chem 7: 05/20/20 18:26 05/25/20 06:37 Labs: Abnormal Lab Results - Last 24 Hours (Table) 05/23/20 05/23/20 05/23/20 Range/Units 06:28 20:21 20:36 Sodium 128 L (137-145) mmol/L Chloride 91 L (98-107) mmol/L BUN 58 H (9-20) mg/dL Creatinine 1.36 H (0.66-1.25) mg/dL Glucose 168 H (74-99) mg/dL POC Glucose (mg/dL) 189 H (75-99) mg/dL Hemoglobin A1c 7.5 H (4.0-6.0) % Calcium 8.1 L (8.4-10.2) mg/dL 05/24/20 05/24/20 05/24/20 Range/Units 06:08 06:17 11:40 Sodium 127 L (137-145) mmol/L Chloride 92 L (98-107) mmol/L BUN 51 H (9-20) mg/dL Creatinine (0.66-1.25) mg/dL Glucose 176 H (74-99) mg/dL POC Glucose (mg/dL) 207 H 230 H (75-99) mg/dL Hemoglobin A1c (4.0-6.0) % Calcium 7.7 L (8.4-10.2) mg/dL 05/24/20 Range/Units 16:58 Sodium (137-145) mmol/L Chloride (98-107) mmol/L BUN (9-20) mg/dL Creatinine (0.66-1.25) mg/dL Glucose (74-99) mg/dL POC Glucose (mg/dL) 194 H (75-99) mg/dL Hemoglobin A1c (4.0-6.0) % Calcium (8.4-10.2) mg/dL Assessment and Plan Assessment: Acute on chronic CHF with ejection fraction 20% on recent echocardiogram Generalized weakness and fatigue and possible metabolic encephalopathy Elevated liver enzymes likely due to hepatic congestion trending down now. Hypovolemic hyponatremia Acute on chronic kidney disease stage III possible cardiorenal Coronary artery disease status post one-vessel CABG Paroxysmal atrial fibrillation on anticoagulation with Coumadin Lactic acidosis on admission due to tissue hypoperfusion Urinary retention status post straight catheterization last night Constipation Plan: Patient was continued on IV hydration and fluid bolus in the ER. was on Lasix 40 mg twice daily. Changed to by mouth. Patient was started on Lasix drip and dobutamine drip. Currently dobutamine drip is being tapered down. And patient was started on Entresto. Cardiology is following. Continue with aspirin, metoprolol and monitor blood pressure closely. PT OT will be consulted and possible rehab transfer. Patient is supposed to follow-up with [facility] for pacemaker interrogation, which was placed in November 2019. Prognosis guarded with multiple medical problems and comorbid conditions. Discussed with his [id number] at bedside in detail.
[2020-05-25 12:06] LABS: Glucose,Whole Blood 191 mg/dL (75-99)
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
[2020-05-25 15:33] VITALS: BP 82/45; PULSE 108
[2020-05-26] MEDS ORDERED: ASPIRIN 81 MG PO SCH (09:00)
[2020-05-26] MEDS ORDERED: FUROSEMIDE 40 MG TAB PO SCH (09:00)
== END 2020-05-25 15:07 | disposition hospice, home (50) | DRG 291 ==
LOC: EC 17:38 → 3SCARD 21:18 → UNDOADMOB 21:18
PROVIDERS: ADMIT Hospitalist; ATTEND Hospitalist
DX: I13.0 Hypertensive heart and chronic kidney disease with heart failure and stage 1 through stage 4 chronic kidney disease, or unspecified chronic kidney disease (principal); I50.23 Acute on chronic systolic (congestive) heart failure; G93.41 Metabolic encephalopathy; E87.1 Hypo-osmolality and hyponatremia; E87.2 Acidosis; N17.9 Acute kidney failure, unspecified; I25.10 Atherosclerotic heart disease of native coronary artery without angina pectoris; I25.5 Ischemic cardiomyopathy; I49.5 Sick sinus syndrome; J44.9 Chronic obstructive pulmonary disease, unspecified; N18.3 Chronic kidney disease, stage 3 (moderate); R00.1 Bradycardia, unspecified; I95.9 Hypotension, unspecified; N40.1 Benign prostatic hyperplasia with lower urinary tract symptoms; E78.5 Hyperlipidemia, unspecified; E86.1 Hypovolemia; I48.0 Paroxysmal atrial fibrillation; E11.22 Type 2 diabetes mellitus with diabetic chronic kidney disease; R33.8 Other retention of urine; R53.81 Other malaise; I34.0 Nonrheumatic mitral (valve) insufficiency; Z20.828 Contact with and (suspected) exposure to other viral communicable diseases; Z79.01 Long term (current) use of anticoagulants; Z79.82 Long term (current) use of aspirin; I25.2 Old myocardial infarction; Z79.899 Other long term (current) drug therapy; Z82.0 Family history of epilepsy and other diseases of the nervous system; Z85.51 Personal history of malignant neoplasm of bladder; Z95.1 Presence of aortocoronary bypass graft; Z90.89 Acquired absence of other organs; Z82.5 Family history of asthma and other chronic lower respiratory diseases; Z95.0 Presence of cardiac pacemaker
CPT/HCPCS: 36415; 70450; 71046; 76705; 80048; 80053; 80074; 81001; 83036; 83605; 83735; 83880; 84484; 85025; 85610; 85730; 93005; 94640; 94760; 96360; 96361; 99285